=== PATIENT | male | born 1955 | race Caucasian/White ===

== ENCOUNTER 2016-11-16 14:51 | Emergency (ER) | payer OTHER ==
[~2016-11-16] VITALS: Ht 190.5 cm; Wt 102.1 kg
[2016-11-16 17:23] VITALS: BP 160/77
[2016-11-16] MEDS ORDERED: HUMALOG KW100 UNIT/1 SC (17:23)
[2016-11-16] MEDS ORDERED: LANTUS SOL100 UNIT/1 SC (17:23)
[2016-11-16] MEDS ORDERED: LABETALOL HCL200 M1 PO (17:24)
[2016-11-16] MEDS ORDERED: VALSARTAN-HCTZ1 EAC3 PO (17:24)
[2016-11-16] MEDS ORDERED: TAMSULOSIN HCL0.4 M1 (17:25)
[2016-11-16 17:26] LABS: ABSOLUTE BASOPHIL COUNT 0 /CUMM (0.0-0.2); ABSOLUTE EOSINOPHIL COUNT 0.4 /CUMM (0.0-0.7); ABSOLUTE GRANULOCYTE CT 5.9 /CUMM (1.4-6.5); ABSOLUTE LYMPH COUNT 1.4 /CUMM (1.2-3.4); ABSOLUTE MONOCYTE COUNT 0.9 /CUMM (0.10-0.60); BASOPHIL % 0.2 % (0.0-2.0); EOSINOPHIL % 4.2 % (0-5); GRANULOCYTE % 68.7 % (42.2-75.2); HEMATOCRIT 42.3 % (42-52); MEAN CORPUSCULAR HGB 30.6 PG (27.0-31.0); MEAN CORPUSCULAR HGB CONC 33.2 G/DL (33.0-37.0); MEAN CORPUSCULAR VOLUME 92.2 FL (80.0-94.0); MEAN PLATELET VOLUME 7.2 FL (7.4-10.4); PLATELET COUNT 225 /CUMM (130-400); RBC DISTRIBUTION WIDTH 12.9 % (11.5-14.5); RED BLOOD CELL CT 4.59 /CUMM (4.70-6.10); WHITE BLOOD CELL COUNT 8.6 /CUMM (4.8-10.8)
[2016-11-16 17:35] LABS: PT 12.2 SEC (9.4-12.5); PTT 31 SEC (25-37)
[2016-11-16] MEDS ORDERED: XARELTO15 M1 PO (18:00)
[2016-11-16] MEDS ORDERED: XARELTO20 M2 PO (18:00)
--- NOTE | 2016-11-16 18:01 | ED UPPER/LOWER EXTREMITY COMPL ---
History of Present Illness General Chief Complaint: Lower Extremity Problems Stated Complaint: POSITIVE DVT. Source: patient, family, old records Exam Limitations: no limitations Vital Signs & Intake/Output Vital Signs & Intake/Output Vital Signs Date Time Temp Pulse Resp B/P B/P Pulse O2 O2 Flow FiO2 Mean Ox Delivery Rate 11/16 1723 96.6 70 24 160/77 95 Room Air 11/16 1515 96.5 78 18 179/80 98 Room Air Allergies Coded Allergies: No Known Allergies (11/16/16) Reconcile Medications Insulin Glargine,Hum.rec.anlog (Lantus Solostar) 100 UNIT/ML (3 ML) INSULN.PEN 52 UNITS SC QPM DM (Reported) Insulin Lispro (Humalog Kwikpen U-100) 100 UNIT/ML INSULN.PEN DM (Reported) Labetalol HCl 200 MG TABLET 1 TAB PO BID HEART/BP (Reported) Rivaroxaban (Xarelto) 15 MG TABLET 1 TAB PO BID dvt Rivaroxaban (Xarelto) 20 MG TABLET 1 TAB PO QPM dvt with food Tamsulosin HCl (Unknown Strength) CAP.ER.24H (Unknown Dose) UNKNOWN (Reported ) Valsartan/Hydrochlorothiazide (Valsartan-Hctz 320-25 MG Tab) 320 MG-25 MG TABLET 1 TAB PO DAILY BP (Reported) Triage Note: SENT FROM [facility] + FOR BLOOD CLOT TO R LEG. C/O SWELLING WITH SLIGHT PAIN SINCE LAST PM. Triage Nurses Notes Reviewed? yes Onset: Morning (1 day) Duration: hour(s):, constant, continues in ED Timing: recent history Severity: mild Pain/Injury Location: Right: Leg, Foot. Modifying Factors: Improves With: rest. Worsens With: movement. Associated Symptoms: swelling, redness, GCS 15 since, stiffness HPI: 1 day prior to admission patient noted right leg and calf was red and swollen. He had an outpatient ultrasound that demonstrated a DVT. He denies fever chills nausea vomiting diarrhea abdominal pain chest pain shortness breath headache dysuria bleeding. Past History Travel History Traveled to [place] past 21 day No Medical History Any Pertinent Medical History? see below for history Endocrine: diabetes Surgical History Surgical History: hernia repair-ventral (March 2016) Psychosocial History What is your primary language Amharic Tobacco Use: Never used ETOH Use: denies use Family History Hx Contributory? No Review of Systems Review of Systems Constitutional: Reports: no symptoms. EENTM: Reports: no symptoms. Respiratory: Reports: no symptoms. Cardiovascular: Reports: no symptoms. Gastrointestinal/Abdominal: Reports: no symptoms. Genitourinary: Reports: no symptoms. Musculoskeletal: Reports: see HPI, joint pain, joint swelling. Skin: Reports: no symptoms. Neurological/Psychological: Reports: no symptoms. Hematologic/Endocrine: Reports: no symptoms. Immunological: Reports: no symptoms. All Other Systems: Reviewed and Negative Physical Exam Physical Exam General Appearance: well developed/nourished, alert, awake, anxious, mild distress Head: atraumatic Eyes: Bilateral: PERRL, EOMI. Ears, Nose, Throat: normal pharynx, normal ENT inspection, hearing grossly normal Neck: normal inspection, supple Cardiovascular/Respiratory: regular rate/rhythm Peripheral Pulses: 4+ carotid (R), 4+ carotid (L) Back: normal inspection Shoulder Left: normal range of motion, normal inspection Shoulder Right: normal range of motion, normal inspection Elbow Left: normal range of motion, normal inspection Elbow Right: normal range of motion, normal inspection Hand Left: normal inspection, normal range of motion Hand Right: normal inspection, normal range of motion Upper Extremity Reflexes: 2+: bicep (R), bicep (L). Leg Left: normal range of motion, normal inspection Leg Right: normal range of motion, swelling, soft tissue tenderness Hip Left: normal range of motion, normal inspection Hip Right: normal range of motion, normal inspection Knee Left: normal range of motion, normal inspection Knee Right: normal range of motion, normal inspection Foot Left: normal inspection, normal range of motion Foot Right: normal inspection, normal range of motion Lower Extremity Reflexes: 2+: knee (R), knee (L). Neurologic/Tendon: normal sensation, normal motor functions, normal tendon functions Skin: intact, normal color, warm/dry Lymphatic: no anterior cervical naty Progress Differential Diagnosis: cellulitis, DVT Plan of Care: Orders Procedure Date/time Status PARTIAL THROMBOPLASTIN TIME 11/16 165 Complete PROTHROMBIN TIME 11/16 165 Complete COMPREHENSIVE METABOLIC PANEL 11/16 1654 Complete CBC WITHOUT DIFFERENTIAL 11/16 1654 Complete Laboratory Tests 11/16/16 1710: Anion Gap 11, Estimated GFR > 60, BUN/Creatinine Ratio 29.2 H, Glucose 277 H, Calcium 9.0, Total Bilirubin 0.4, AST 18, ALT 29, Alkaline Phosphatase 70, Total Protein 5.6 L, Albumin 3.2 L, Globulin 2.4, Albumin/Globulin Ratio 1.3, PT 12.2, INR 1.16, APTT 31, CBC w Diff NO MAN DIFF REQ, RBC 4.59 L, MCV 92.2, MCH 30.6, RDW 12.9, MPV 7.2 L, Gran % 68.7, Lymphocytes % 16.3 L, Monocytes % 10.6 H, Eosinophils % 4.2, Basophils % 0.2, Absolute Granulocytes 5.9, Absolute Lymphocytes 1.4, Absolute Monocytes 0.9 H, Absolute Eosinophils 0.4, Absolute Basophils 0, PUBS MCHC 33.2 Diagnostic Imaging: Viewed by Me: Ultrasound. Discussed w/RAD: Ultrasound. Radiology Impression: 1. The study demonstrates extensive deep vein thrombus from the calf through the upper superficial femoral vein. 2. There are no focal fluid collections. Departure Departure Time of Disposition: 1758 Disposition: HOME OR SELF CARE Condition: Stable Clinical Impression Primary Impression: DVT (deep venous thrombosis) Qualifiers: DVT location: lower extremity Affected thrombotic vein of extremity : unspecified vein of extremity Chronicity: acute Laterality: right Qualified Code: I82.401 - Acute embolism and thrombosis of unspecified deep veins of right lower extremity Referrals: AUGUSTO PAYTON,ABBEY Zelaya (PCP/Family) Additional Instructions: Xarelto 15 mg 2 times a day for 3 weeks then Xarelto 20 mg daily for 3 months Departure Forms: Customer Survey General Discharge Information Prescriptions: Current Visit Scripts Rivaroxaban (Xarelto) 1 TAB PO BID #42 TAB Rivaroxaban (Xarelto) 1 TAB PO QPM #30 TAB with food
== END 2016-11-16 18:26 ==
LOC: ERH 14:51
PROVIDERS: Emergency Medicine
DX: I82.401 Acute embolism and thrombosis of unspecified deep veins of right lower extremity (principal)

== ENCOUNTER 2016-11-18 19:02 | Inpatient (IN) | payer OTHER ==
[~2016-11-18] VITALS: Ht 182.9 cm; Wt 100.7 kg
[~2016-11-18 19:02] MED LIST: HUMALOG KW100 UNIT/1 SC; LABETALOL HCL200 M1 PO; LANTUS SOL100 UNIT/1 SC; TAMSULOSIN HCL0.4 M1; VALSARTAN-HCTZ1 EAC3 PO; XARELTO15 M1 PO; XARELTO20 M2 PO
--- NOTE | 2016-11-18 19:47 | ED DYSPNEA/ASTHMA COMPLAINT ---
History of Present Illness General Chief Complaint: General Adult Stated Complaint: PT SIB DR CASAS FOR CLOG IN RT LEG AND LUNGS Source: patient, family, old records Exam Limitations: no limitations Vital Signs & Intake/Output Vital Signs & Intake/Output Vital Signs Date Time Temp Pulse Resp B/P B/P Pulse O2 O2 Flow FiO2 Mean Ox Delivery Rate 11/19 0119 97.4 77 18 157/70 95 Room Air 11/19 0022 97.6 73 18 160/75 11/19 0005 97.6 73 18 160/75 94 Room Air 11/18 2243 97.2 68 18 156/84 94 Room Air 11/18 2024 97.7 65 18 162/66 96 Room Air 11/18 2006 96.5 66 18 191/89 97 Room Air ED Intake and Output 11/19 0000 11/18 1200 Intake Total Output Total Balance Patient 222 lb Weight Weight Estimated Measurement Method Allergies Coded Allergies: No Known Allergies (11/16/16) Reconcile Medications Insulin Glargine,Hum.rec.anlog (Lantus Solostar) 100 UNIT/ML (3 ML) INSULN.PEN 52 UNITS SC QPM DM (Reported) Insulin Lispro (Humalog Kwikpen U-100) 100 UNIT/ML INSULN.PEN DM (Reported) Labetalol HCl 200 MG TABLET 1 TAB PO BID HEART/BP (Reported) Rivaroxaban (Xarelto) 15 MG TABLET 1 TAB PO BID dvt Rivaroxaban (Xarelto) 20 MG TABLET 1 TAB PO QPM dvt with food Valsartan/Hydrochlorothiazide (Valsartan-Hctz 320-25 MG Tab) 320 MG-25 MG TABLET 1 TAB PO DAILY BP (Reported) Triage Nurses Notes Reviewed? yes Onset: Abrupt Duration: week(s): (1), constant Timing: recent history Severity: mild Activities at Onset: none Prior Episodes/Possible Cause: no prior episodes Associated Symptoms: denies HPI: 61-year-old male with history of diabetes presents to ER for evaluation after he had an outpatient CAT scan performed today that showed he had left upper and left lower lobe pulmonary embolism. He was seen here 2 days ago diagnosed with a right lower extremity DVT for which she was started on xarelto. He is been compliant with taking the medicine. He states for the past several weeks to months he's had bilateral rib pain. He denies any chest pain shortness of breath pain with inspiration no cough hemoptysis. No recent immobility no recent travel. No family history of clotting disorder. Patient states that his leg is been swollen for the past few days no rashes to his skin. No dizziness lightheadedness no modifying factors or associated dose. He does not smoke (SHANEL COLMENARES) Past History Travel History Traveled to [place] past 21 day No Medical History Any Pertinent Medical History? see below for history Endocrine: diabetes Surgical History Surgical History: hernia repair-ventral (March 2016) Psychosocial History What is your primary language Maltese Family History Hx Contributory? No (SHANEL COLMENARES) Review of Systems Review of Systems Constitutional: Reports: see HPI. All Other Systems: Reviewed and Negative Comments Review of systems: See HPI, All other systems negative. Constitutional, no chills no fever, no malaise HEENT: No visual changes no sore throat no congestion, Cardiovascular: No chest pain , no palpitation , no orthopnea Skin: no rashes, no change in skin Respiratory: No dyspnea no cough no sputum GI: No nausea no vomiting, no diarrhea, no bloating/constipation : No dysuria Muscle skeletal: No joint pain, no joint swelling, no back pain, no neck pain, Neurologic: No numbnessno headache Psych: No stress Heme/endocrine: No bruising Immunology: No lymphadenopathy (SHANEL COLMENARES) Physical Exam Physical Exam General Appearance: well developed/nourished, alert, awake Respiratory: normal breath sounds, chest non-tender Comments: Well-developed well-nourished person in no acute distress HEENT: Normal EENT exam; PERRL, EOMI, no nystagmus. HEAD is atraumatic. moist mucous membranes. Neck: Supple, normal range of motion Back: Nontender. Full range of motion Cardiovascular: Regular rate and rhythms no murmurs rubs or gallops, normal JVP Respiratory: Chest nontender.There were no bony deformities, no asymmetry. No respiratory distress. Patient speaking in full complete sentences. Breath sounds clear to auscultation bilaterally: NO W/R/R Abdomen: Soft, nontender nondistended, no appreciable organomegaly. Normal bowel sounds. No rebound/guarding,No ascites. Extremity: Right leg 3+ edema, left leg is nonedematous, full range of motion of extremities, normal and equal pulses bilaterally, 5 out of 5 strength noted to bilateral upper and lower extremities Neuro: Alert oriented x3, motor sensory normal, There were no obvious focal neurologic abnormalities. Skin: No appreciable rash on exposed skin, skin is warm and dry. Psych: Mood and affect is normal, memory and judgment is normal. Core Measures ACS in differential dx? Yes Severe Sepsis Present: No Septic Shock Present: No (RUBINA ALVARADO,SHANEL) Progress Differential Diagnosis: asthma, AMI, bronchitis, CHF, COPD, musculoskeletal pain , pericarditis, pulmonary embolism, pneumonia, pneumothorax, unstable angina Plan of Care: Orders Procedure Date/time Status Consistent Carbohydrate 3 11/19 B Active TROPONIN LEVEL 11/20 799 Active EKG 11/20 799 Active CBC WITHOUT DIFFERENTIAL 11/19 599 Active BASIC ELECTROLYTES PLUS BUN&CR 11/19 599 Active TROPONIN LEVEL 11/19 0200 Active EKG 11/19 0200 Active Vital Signs 11/20 147 Active Teach/Educate 11/20 147 Active Pain Treatment and Response 11/20 147 Active Nutritional Intake, Monitor 11/20 147 Active Isolation 11/20 147 Active Intake & Output 11/20 147 Active Patient Care Conference 11/20 147 Active Pathway - chart 11/18 2314 Active Pathway - chart 11/18 2253 Active OXYGEN SETUP (GEN) 11/19 2235 Active Saline Lock 11/19 2235 Active Admit to inpatient 11/19 2235 Active Vital Signs 11/19 2235 Active Activity/Ambulation 11/19 2235 Active Code Status 11/19 2235 Active Patient Data 11/18 2159 Active Intake & Output 11/18 2017 Active Telemetry/Radiation Protection Specialist 11/18 2004 Active TROPONIN LEVEL 11/18 194 Complete PARTIAL THROMBOPLASTIN TIME 11/18 1941 Complete PROTHROMBIN TIME 11/18 194 Complete COMPREHENSIVE METABOLIC PANEL 11/18 1941 Complete CBC WITHOUT DIFFERENTIAL 11/18 1941 Complete EKG 11/18 1906 Active House Staff 11/18 UNK Active Hemoccult 11/18 UNK Active FingerStick- Glucose 11/18 UNK Active Elevate 11/18 UNK Active PHYSICIAN CONSULT 11/18 UNK Active ECHOCARDIOGRAM 11/18 UNK Active Current Medications Sig/Jose A Start time Last Medication Dose Stop Time Status Admin Hydrochlorothiazide 25 MG DAILY 11/19 1000 AC (Hydrodiuril) Losartan Potassium 100 MG DAILY 11/19 1000 AC (Cozaar) Insulin Aspart 0 TIDAC/HS 11/19 0800 AC (NovoLOG) Acetaminophen 650 MG Q6P PRN 11/18 2315 AC (Tylenol) Acetaminophen 1,000 MG Q6P PRN 11/18 2315 AC (Ofirmev) Morphine Sulfate 2 MG Q6-PRN PRN 11/18 2315 AC (Morphine) Insulin Detemir 26 UNITS QPM 11/18 2300 AC 11/19 (Levemir) 0046 Labetalol HCl 200 MG BID 11/18 2257 AC 11/19 (Trandate-Normodyne 0022 200MG Tab) Laboratory Tests 11/18/16 2015: Anion Gap 7, Estimated GFR > 60, BUN/Creatinine Ratio 26.7 H, Glucose 259 H, Calcium 9.0, Total Bilirubin 0.5, AST 23, ALT 22, Alkaline Phosphatase 68, Troponin I 0.13 *H, Total Protein 5.8 L, Albumin 3.1 L, Globulin 2.7, Albumin/ Globulin Ratio 1.1, PT 14.3 H, INR 1.37 H, APTT 35, CBC w Diff NO MAN DIFF REQ , RBC 4.33 L, MCV 92.4, MCH 31.2 H, RDW 13.0, MPV 7.4, Gran % 65.3, Lymphocytes % 21.0, Monocytes % 9.0, Eosinophils % 4.2, Basophils % 0.5, Absolute Granulocytes 5.7, Absolute Lymphocytes 1.8, Absolute Monocytes 0.8 H, Absolute Eosinophils 0.4, Absolute Basophils 0, PUBS MCHC 33.8 Patient has no complaints. Discussed with the patient plan of care and results of CAT scan heparin ordered case discussed with Dr. miranda and dr abraham will admit to tele. pt denies any cp Discussed with the patient all his lab results including his elevated troponin heparin is running again denying any chest pain (SHANEL COLMENARES) Diagnostic Imaging: Viewed by Me: CT Scan. Discussed w/RAD: CT Scan. Radiology Impression: PATIENT: ELE LEIGH PRESENT AGE: 61 PATIENT ACCOUNT NO: [id number] : 53 LOCATION: [facility] ORDERING PHYSICIAN: ABBEY CASAS MD SERVICE DATE: 11/18/16 EXAM TYPE: CAT - CTA CHEST-PULMONARY EMBOLISM EXAMINATION: CT ANGIOGRAM OF THE CHEST WITH AND WITHOUT CONTRAST (CT PULMONARY ANGIOGRAM FOR PE) CLINICAL INFORMATION: Chest pain. Recent deep venous thrombosis of the right lower extremity. COMPARISON: None. TECHNIQUE: Prior to contrast administration, noncontrast localization images were obtained. Subsequently, multidetector volumetric imaging was performed from the thoracic inlet to below the diaphragms following the administration of 100 mL Optiray 350 intravenous contrast. No contrast reaction reported. Sagittal, coronal, and MIP oblique sagittal reformatted images were obtained on the CT workstation, uploaded to PACS, and reviewed. Total exam dose- length product 839 mGy-cm. FINDINGS: QUALITY OF STUDY/CONTRAST BOLUS: Adequate contrast opacification of the pulmonary arterial vasculature. PULMONARY ARTERIES : Intraluminal filling defects within segmental and subsegmental branches of the left upper and left lower lobes. No large central pulmonary emboli. THORACIC AORTA: Normal caliber of the thoracic aorta. No centrally displaced intraluminal flaps to suggest aortic dissection. Minimal atherosclerosis of the thoracic aorta. Normal three-vessel branching of the aortic arch. LUNG: Evaluation of the lung parenchyma demonstrates minimal dependent bibasilar atelectasis. No focal airspace consolidation is identified to suggest infection. Incidental note is made of a 4 mm nodule along the right minor fissure. This finding is entirely nonspecific but may represent a small intrafissural lymph node. A 3 mm subpleural nodule is identified along the periphery of the right middle lobe ( series 5, image 43). No pulmonary masses are identified. The central airways are patent, without endobronchial obstructing lesions. PLEURA: No pleural effusions or pneumothoraces. MEDIASTINUM: Normal heart size. No pericardial effusion. No hilar or mediastinal lymphadenopathy. No evidence of septal bowing or right heart strain. CHEST WALL/AXILLA: No axillary or internal mammary lymphadenopathy. OSSEOUS STRUCTURES: No acute or suspicious osseous abnormality. UPPER ABDOMEN: No acute findings within the upper abdomen. No reflux of contrast into the hepatic veins to suggest elevated right heart pressures. IMPRESSION: 1. Adequate contrast opacification of the pulmonary arterial vasculature. Pulmonary emboli are identified within segmental and subsegmental branches of the left upper and left lower lobes. No large central emboli are identified. There are no findings indicative of right heart strain. 2. Incidental note is made of subcentimeter nodules along the right minor fissure as well as along the periphery of the right middle lobe. These nodules are entirely nonspecific. Various management parameters for solitary pulmonary nodules are in the literature. According to the Fleischner Society, recommendations for pulmonary nodules are as follows: Nodule size < 6 mm in LOW RISK PATIENTS: No follow up needed. Nodule size < 6 mm in HIGH RISK PATIENTS: Optional follow-up up CT in 12 months. This critical result was discussed with Dr. Abbey Casas at 2:57 PM on and it was ascertained that the content and urgency of the report was understood at the time of direct communication. DICTATED BY: KISHOR KNAPP MD DATE/TIME DICTATED:11/18/161440 [employer] AND FORMER:DIVYA DATE/TIME TRANSCRIBED:11/18/161440 CONFIDENTIAL, DO NOT COPY WITHOUT APPROPRIATE AUTHORIZATION. <Electronically signed in Other Vendor System> SIGNED BY: KISHOR KNAPP MD 11/18/16 1500 Initial ED EKG: NSR AT 70, NO ACUTE ST SEG CHANGES, NROMAL AXIS Rhythm Strip: normal sinus rhythm (SHANEL COLMENARES) Departure Departure Time of Disposition: 2140 Disposition: STILL A PATIENT Condition: Stable Clinical Impression Primary Impression: Pulmonary embolism Secondary Impressions: Elevated troponin Referrals: ABBEY CASAS MD (PCP/Family) Departure Forms: Customer Survey General Discharge Information Admission Note Spoke With: SHANIKA ABRAHAM MD Documentation of Exam: Documentation of any treatments & extenuating circumstances including Concerns Regarding Discharge (functional status, medication knowledge or non-compliance, living conditions, etc.) that warrant an admission rather than observation: [iv heparin, vascular, cardiology consult, premature discharge would be medically harmful (SHANEL COLMENARES) PA/MRI ASSISTANT Co-Sign Statement Statement: ED Attending supervision documentation- x I saw and evaluated the patient. I have also reviewed all the pertinent lab results and diagnostic results. I agree with the findings and the plan of care as documented in the PA's/MRI ASSISTANT's documentation. [] I have reviewed the ED Record and agree with the PA's/MRI ASSISTANT's documentation. [] Additions or exceptions (if any) to the PAs/MRI ASSISTANT's note and plan are summarized below: [] (GREGORIO PAYTON,SOURAV) Critical Care Note Critical Care Note Critical Care Time: 30-74 min (SHANEL COLMENARES)
--- NOTE | 2016-11-18 20:07 | NUR ---
RECEIVED 61 YO MALE SENT IN BY DR CASAS FOR PE AND DVT IN RIGHT LOWER EXTREMITY. PT BOUGHT DIRECTLY TO ROOM # 6 FOR TRIAGE, EVALUATION AND TREATMENT. OUTPATIENT LUNG SCAN DONE TODAY SECONDARY TO PT FEELING WORSE TOPDAY. PT WAS HERE TUESDAY AND DX WITH DVT IN RIGHT LOWER EXTREMITY. O2 SATS 97%NO C/O SOB/CP
--- NOTE | 2016-11-18 20:09 | NUR ---
RECEIVED 61 YO MALE SENT IN BY DR CASAS FOR PE AND DVT IN RIGHT LOWER EXTREMITY. PT BOUGHT DIRECTLY TO ROOM # 6 FOR TRIAGE, EVALUATION AND TREATMENT. OUTPATIENT LUNG SCAN DONE TODAY SECONDARY TO PT FEELING WORSE TODAY. PT WAS HERE TUESDAY AND DX WITH DVT IN RIGHT LOWER EXTREMITY. O2 SATS 97%NO C/O SOB/CP
[2016-11-18 20:29] LABS: ABSOLUTE BASOPHIL COUNT 0 /CUMM (0.0-0.2); ABSOLUTE EOSINOPHIL COUNT 0.4 /CUMM (0.0-0.7); ABSOLUTE GRANULOCYTE CT 5.7 /CUMM (1.4-6.5); ABSOLUTE LYMPH COUNT 1.8 /CUMM (1.2-3.4); ABSOLUTE MONOCYTE COUNT 0.8 /CUMM (0.10-0.60); BASOPHIL % 0.5 % (0.0-2.0); EOSINOPHIL % 4.2 % (0-5); GRANULOCYTE % 65.3 % (42.2-75.2); MEAN CORPUSCULAR HGB 31.2 PG (27.0-31.0); MEAN CORPUSCULAR HGB CONC 33.8 G/DL (33.0-37.0); MEAN CORPUSCULAR VOLUME 92.4 FL (80.0-94.0); MEAN PLATELET VOLUME 7.4 FL (7.4-10.4); PLATELET COUNT 237 /CUMM (130-400); RED BLOOD CELL CT 4.33 /CUMM (4.70-6.10); WHITE BLOOD CELL COUNT 8.7 /CUMM (4.8-10.8)
--- NOTE | 2016-11-18 20:30 | NUR ---
PT REPORTS HAVING ABDOMINAL PAIN SINCE APRIL. STATES THAT HE WAS TAKEN OFF "ALOT OF MY MEDS" TO RULE THE CAUSE OF PAIN. PT HERE TODAY FOR DVT TO RIGHT LOWER LEG.
[2016-11-18 20:37] LABS: PT 14.3 SEC (9.4-12.5); PTT 35 SEC (25-37)
--- NOTE | 2016-11-18 21:26 | NUR ---
CRITICAL TEST RESULTS [id number] ELE LEIGH 61 M TESTS AND RESULTS: 0.13 REPORTED TO SHANEL ALVARADO Results received and read back by: DEBBIE ESPINOZA Results received date and time: 11/18/16 [id number]
--- NOTE | 2016-11-18 21:55 | History & Physical ---
TALA PAYTON,[facility] [place] 11/18/16 2154: General Information and HPI MD Statement: I have seen and personally examined ELE CAVANAUGH and documented this H&P. The patient is a 61 year old M who presented with a patient stated chief complaint of DVT and PE. Source of Information: patient, old records Exam Limitations: no limitations History of Present Illness: Mr. Cavanaugh is a 61 y/o M with PMHx of insulin-dependent T2DM, HTN and remote history of bone cancer s/p resection and bone graft placement (1961) who is sent in from PCP Dr. Kory Owens's office for further evaluation and management of RLE DVT and PE. Four days prior to current presentation, patient noted painless swelling of his right leg and foot. The following day he presented to his Dr. Owens's office who recommended an US which revealed an extensive DVT extending from his calf through the upper superficial femoral vein. He was subsequently sent to [place] ED for further management where he was discharged with instructions to take Xarelto 15 mg PO BID for 3 weeks, followed by Xarelto 20 mg PO daily for 3 months. Over the next two days patient developed increasing swelling and tightness of his right leg despite taking Xarelto as instructed. He also noted diarrhea which has since resolved as well as paresthesias involving his bilateral flanks and left lateral thigh, which he describes as "pins and pricks" sensation, feeling like he is being "stung by bees". He presented to his Dr. Owens's office again on the day of current presentation. CTA Chest was performed which revealed pulmonary emboli within the segmental and subsegmental branches of the left upper and lower lobes of the lung. Patient was subsequently sent to [place] ED for further evaluation and management. Currently patient denies chest pain, shortness of breath, melena or bloody stool. He denies personal or family history of blood clots. He denies recent long-distance travel or surgery. He reports that he is pretty active and runs or walks daily for exercise. 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 In July 2015, patient had a seizure at work and was subsequently admitted to [facility] for further workup which was unrevealing. In March 2016, he underwent hernia repair surgery for the second time and since then he has significant had abdominal pain. He reports that his stomach feels like he has done "100 sit-ups ". Extensive testing was performed by Dr. Wright including CT, MRI and barium swallow which were unrevealing except for a fluid collection in the right paracolic gutter, with repeat CT scans showing mild improvement, with no intervention pursued. Patient had a colonoscopy 2 years ago which was negative. Allergies/Medications Allergies: Coded Allergies: No Known Allergies (11/16/16) Past History Travel History Traveled to [place] past 21 day No Medical History Neurological: seizure EENT: NONE Cardiovascular: hypertension, hyperlipidemia Respiratory: NONE Gastrointestinal: abdominal pain with fluid collection in the paracolic gutter Hepatic: NONE Renal: NONE Musculoskeletal: NONE Psychiatric: NONE Endocrine: insulin-dependent T2DM Blood Disorders: DVT, PE Cancer(s): bone cancer of right lower leg (1961) Surgical History Surgical History: excision of left neck soft tissue mass, hernia repair x2 (most recent one in March 2016), resection of right lower leg bone cancer (1961) and bone graft placement, TURP Past Family/Social History Family History Relations & Conditions if any PATERNAL GRANDMOTHER FH: diabetes mellitus No family history of: Blood clots Psychosocial History Where do you live? Home Services at Home: None Primary Language: Chilean Smoking Status: Never Smoked ETOH Use: denies use Functional Ability ADLs Independent: dressing, eating, toileting, bathing. Ambulation: independent IADLs Independent: shopping, housework, finances, food prep, telephone, transportation , medication admin. Employment History Employment Retired Profession/Employer Industrial Designer Review of Systems Review of Systems Constitutional: Reports: no symptoms. Denies: unexplained weight loss. EENTM: Reports: no symptoms. Cardiovascular: Reports: peripheral edema. Denies: chest pain. Respiratory: Denies: short of breath. GI: Reports: abdominal pain. Denies: diarrhea, melena, bloody stool. Genitourinary: Reports: no symptoms. Musculoskeletal: Reports: no symptoms. Denies: joint pain, joint swelling. Skin: Reports: no symptoms. Neurological/Psychological: Reports: no symptoms. Hematologic/Endocrine: Reports: see HPI (RLE DVT and PE). Immunologic/Allergic: Reports: no symptoms. All Other Systems: Reviewed and Negative Exam & Diagnostic Data Last 24 Hrs of Vital Signs/I&O Vital Signs Date Time Temp Pulse Resp B/P B/P Pulse O2 O2 Flow FiO2 Mean Ox Delivery Rate 11/18 2243 97.2 68 18 156/84 94 Room Air 11/19 2023 97.7 65 18 162/66 96 Room Air 11/18 2005 96.5 66 18 191/89 97 Room Air Physical Exam General Appearance Alert, Oriented X3, No Acute Distress HEENT Atraumatic, Mucous Membr. moist/pink Neck Supple Cardiovascular Regular Rate, Normal S1, Normal S2, No Murmurs, Gallops, Rubs Lungs Clear to Auscultation Abdomen Soft, No Tenderness, Positive Bowel Sounds Extremities RLE with 2+ Pitting Edema, No Erythema Present Vascular Normal Pulses Last 24 Hrs of Labs/Darinel: Laboratory Tests 11/18/162014: Anion Gap 7, Estimated GFR > 60, BUN/Creatinine Ratio 26.7 H, Glucose 259 H, Calcium 9.0, Total Bilirubin 0.5, AST 23, ALT 22, Alkaline Phosphatase 68, Troponin I 0.13 *H, Total Protein 5.8 L, Albumin 3.1 L, Globulin 2.7, Albumin/ Globulin Ratio 1.1, PT 14.3 H, INR 1.37 H, APTT 35, CBC w Diff NO MAN DIFF REQ , RBC 4.33 L, MCV 92.4, MCH 31.2 H, RDW 13.0, MPV 7.4, Gran % 65.3, Lymphocytes % 21.0, Monocytes % 9.0, Eosinophils % 4.2, Basophils % 0.5, Absolute Granulocytes 5.7, Absolute Lymphocytes 1.8, Absolute Monocytes 0.8 H, Absolute Eosinophils 0.4, Absolute Basophils 0, PUBS MCHC 33.8 Diagnostic Data EKG Results Normal sinus rhythm HR [address]-T wave changes QTc 451 Other Results CTA CHEST (11/18/16): : 1. Adequate contrast opacification of the pulmonary arterial vasculature. Pulmonary emboli are identified within segmental and subsegmental branches of the left upper and left lower lobes. No large central emboli are identified. There are no findings indicative of right heart strain. 2. Incidental note is made of subcentimeter nodules along the right minor fissure as well as along the periphery of the right middle lobe. These nodules are entirely nonspecific. Various management parameters for solitary pulmonary nodules are in the literature. According to the Fleischner Society, recommendations for pulmonary nodules are as follows: Nodule size < 6 mm in LOW RISK PATIENTS: No follow up needed. Nodule size < 6 mm in HIGH RISK PATIENTS: Optional follow-up up CT in 12 months. RLE DOPPLER US (11/16/16): 1. The study demonstrates extensive deep vein thrombus from the calf through the upper superficial femoral vein. 2. There are no focal fluid collections. 3. This critical result was discussed with Ashley Parry WARDSPERSON by telephone on 11/16/2016 at 2:36 PM and it was ascertained that the content and urgency of the report was understood at the time of direct communication. The patient was directed to the ER at [facility] for further management. Assessment/Plan Assessment: Mr. Cavanaugh is a 61 y/o M with PMHx of insulin-dependent T2DM, HTN and remote history of bone cancer s/p resection (1961) who is admitted for RLE DVT and PE. #Acute RLE DVT/PE: Extensive DVT extending from calf to the upper superficial femoral vein on RLE as revealed by doppler US (11/16). Leg swelling has worsened despite being on Xarelto, now with CTA Chest revealing pulmonary emboli within segmental and subsegmental branches of left upper and lower lobes (11/18). This would likely not qualify as Xarelto failure as patient has only been on the medication for two days. 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 No personal or family history of clots, recent long-distance travel or surgery. Patient is hemodynamically stable and satting well on room air. * Hematology consulted. Appreciate their recs. * Vascular surgery consulted for evaluation for possible surgical invervention such as embolectomy given the extent of the clot. Appreciate their recs. * Continue IV heparin overnight. Plan to switch to oral agent, either Eliquis or Xarelto, pending hematology input. * Guaiac all stools while on heparin drip. * Patient will need hypercoagulability workup which can be pursued as outpatient. * Encourage RLE elevation. #Elevated troponin: Troponin elevated to 0.13 on admission. EKG with no ST-T wave changes. Most likely represents demand ischemia in the absence of EKG changes and chest pain. * Admit to telemetry for continuous cardiac monitoring. * Cardiology consult to be placed in the AM. Appreciate their recs. * Trend troponins and EKG. * ECHO ordered to evaluate for right heart strain. #Insulin-dependent T2DM: Takes Lantus 52 units SQ QPM and sliding scale lispro TIDAC/QHS. * Start levemir 26 units SQ QPM, which is half of patient's home dose, with plans to adjust as needed. * Accu-checks and sliding scale medium-dose Novolog TIDAC/QHS. #HTN: Takes labetalol 200 mg PO BID and valsartan-HCTZ 320-25 mg PO daily. * Continue lptge-dy-saaikqdni labetalol 200 mg PO BID and HCTZ 25 mg PO daily. * Losartan 100 mg PO daily in place of turmd-ho-crskjcqtk valsartan 25 mg PO daily. Diet: Consistent Carbohydrate 3 DVT PPx: IV heparin Pain: Morphine 2 mg IV Q6H PRN for severe pain (scale 7-10) Tylenol 1 g IV Q6H PRN for moderate pain (scale 4-6) Tylenol 650 mg PO Q6H PRN for mild pain (scale 1-3) CODE: FULL As Ranked By This Provider Problem List: 1. Pulmonary embolism 2. Deep vein thrombosis (DVT) of right lower extremity 3. Elevated troponin 4. HTN (hypertension) 5. Insulin dependent type 2 diabetes mellitus Core Measures/Miscellaneous Acute Coronary Syndrome ACS Diagnosis: No Cerebrovascular Accident CVA/TIA Diagnosis: No Congestive Heart Failure CHF Diagnosis: No VTE (View Protocol) VTE Risk Factors: Acute medical illness, Age > 40, Previous VTE No [facility] VTE prophylaxis d/t: DVT of LE No VTE Pharm Prophylaxis d/t: No contraindications VTE Diagnosis: Yes VTE Type: Pulmonary Embolism (and DVT) VTE Confirmed by (Test): CT CHEST ANGIOGRAM (and unilateral venous doppler) Sepsis (View Protocol) Severe Sepsis Present: No Septic Shock Septic Shock Present: No Miscellaneous Documentation Attending Case Discussed With: Jarad Woo MD Primary Care Physician: AUGUSTO PAYTON,KORY A Patient sees these Specialists General surgeon Gaurang Wright MD Level of Patient Care: Telemetry SHANEL MYLES 11/18/16 3162: General Information and HPI Allergies/Medications Home Med list Apixaban (Eliquis) 5 MG TABLET 1 TAB PO SEE ADMIN CRITERIA PE SEE DISCHARGE INSTRUCTIONS Insulin Glargine,Hum.rec.anlog (Lantus Solostar) 100 UNIT/ML (3 ML) INSULN.PEN 52 UNITS SC QPM DM (Reported) Insulin Lispro (Humalog Kwikpen U-100) 100 UNIT/ML INSULN.PEN DM (Reported) Labetalol HCl 200 MG TABLET 1 TAB PO BID HEART/BP (Reported) Rivaroxaban (Xarelto) 15 MG TABLET 1 TAB PO BID dvt Rivaroxaban (Xarelto) 20 MG TABLET 1 TAB PO QPM dvt with food Valsartan/Hydrochlorothiazide (Valsartan-Hctz 320-25 MG Tab) 320 MG-25 MG TABLET 1 TAB PO DAILY BP (Reported) Resident Review Statement Resident Statement: examined this patient, discussed with internal communications specialist, agreed with internal communications specialist, discussed with family, reviewed images, amended to note Other Findings: This is a 61 years old gentleman with past medical history significant for hypertension, insulin-dependent diabetes mellitus, bone cancer at the age of 8 years in 1964 status post resection, history of one episode of seizure in July 2015 not on antiseizure medications presenting with 4 days history of right lower limb swelling. The patient reports that his noted his right lower limb was swollen on Tuesday and on Tuesday went to see his PCP Dr. Owens, he had an ultrasound of the lower limb which showed DVT and patient was started on Xarelto, the patient reports that he continued to note that his lower limb was getting more swollen though he denies any pain and because of that went back to his PCP who decided to do a CTA and showed evidence of pulmonary embolism. The patient denies any chest pain palpitation or shortness of breath. Prior to the development of the clot the patient denies any prolonged immobility , long flight, history of clots in the past. He denies any clots among close family members. The patient denies any weight loss, blood in stool or change in stool color, he had colonoscopy 2 years ago which was negative. Patient volunteers that after he had hernia repair in March 2016 he continued to have pain around the epigastric area and the bilateral flank he has extensive workout which was negative, this pain has not changed from baseline. Vital signs on arrival afebrile 96.5, heart rate of 66, blood pressure 191/89 and saturating 97% on room air Physical examination: Seated comfortably on the bed not in acute distress cooperative oriented to time place and person HEENT: No distended neck vessels Chest: Clear lungs bilaterally Heart: Normal S1 and S2 regular no murmurs Abdomen: Obese nontender moving with respiration no palpable mass Extremities: Right lower limb is swollen than the left hip, has pitting edema +2 , strong pulses posterior tibial and dorsalis pedis, no skin changes Labs: Troponin 0.13, INR 1.37, creatinine of 1.2 Imaging studies: Doppler ultrasound extensive DVT from the cuff to the upper superficial femoral vein CTA: PE advised identified within segmental and subsegmental branches of left upper and lower lobes no large central emboli, there is incidental nodule subcentimeter EKG: NSR 72 bpm normal axis, regular QTC [address]-T wave changes Assessment and plan 61 years old with remote past history of bone cancer, hypertension, diabetes mellitus insulin-dependent who is presenting with forward days history of right lower extremity DVT which is extensive and current evidence of pulmonary embolism that is non-massive. Patient does not appear to have any provoking factors and this is the first episode of thromboembolism. Patient is stable hemodynamically and saturating well on room air with mildly elevated troponin without concurrent EKG changes. Problem list Deep vein thrombosis Pulmonary embolism Hypertension Diabetes mellitus Admit the patient to telemetry flow, continuous carbide grinder Heparin drip per PE protocol, hold Xarelto while on heparin drip Serial troponin and EKG every 6 hours till when troponin plateu or start decreasing Echocardiogram to rule out cardiac emboli/right heart strain Restart home blood pressure medication labetalol 200 mg twice a day and valsartan HCTZ 325/25 Consistent carbohydrate 3 diet Accu-Cheks 3 times a day before meals at bedtime Patient takes Lantus 52 units at home at bedtime we will decrease that to 26 and consider adjustment to normal doses if sugar is not well controlled Medium sliding scale insulin before meals with bedtime coverage Check HbA1c Elevate the right lower leg whenever in bed Cardiology consult Hematology consult this patient might require workup for hypercoagulable state Patient has subcentimeter incidental pulmonary nodules that will require follow- up post discharge Pain pathway Patient is full code JARAD PAYTON, [facility] 11/19/16 0525: Attending Review Statement Attending Statement Attending MD Statement: examined this patient, discuss w/resident/PA/WARDSPERSON, agreed w/resident/PA/WARDSPERSON Attending Assessment/Plan: 61 yo M with h/o DM, HTN, bone cancer RLE s/p resection and iliac bone graft ( 1961), recently diagnosed RLE DVT is sent in for evaluation as his outpatient CTA showed PE. Patient reports noticing RLE swelling early this week, underwent LE doppler which showed extensive DVT, was seen in the ER on November 16 and initiated on Xarelto. Patient reports diarrhea, paresthesias and bilateral flank pain since he started the xarelto, but reports compliance with it. He saw his PCP yesterday who advised CTA chest as patient had c/o discomfort in his lower ribs/upper abdomen. He denies chest pain, dyspnea, palpitations or lightheadedness. 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 He denies being on hormonal pills, nonsmoker, no family or personal h/o VTA. No recent surgery or long flights. No cancer history. Last colonoscopy (2 yrs ago) normal. Of note, patient has a h/o seizure Jul 2015 with negative work up at [facility]. No further seizure episodes and not on meds. He then had umbilical hernia repair Mar 2016 that was complicated by persistent upper abdominal discomfort requiring CT scan which showed a fluid pocket in the right paracolic gutter ?related to appendix, with repeat scans that showed mild resolution. However, his discomfort persists. VSS. Labs: BUN 32, trop 013, EKG: SR, T wave flattening/ inversion I, aVL. LE doppler (11/16): extensive DVT from calf though upper superficial femoral vein. CTA: segmental and subsegmental PE in left upper and left lower lobes, no right heart strain. 1. Acute RLE DVT and PE, possibly provoked, with elevated troponin likely demand ischemia. Tele admit, serial EKG and troponin, obtain echo, Cardio consult. IV heparin per PTT protocol, guaiac all stools, monitor H/H and Plt while on heparin. Plan to switch to eliquis or xarelto in AM. Cannot term this as xarelto failure as patient was on it for about 2 days only. Obtain Heme-Onc and Vascular consult. 2. HTN. Ct. Valsartan and labetalol. DVT ppx IV heparin. Full code.
--- NOTE | 2016-11-18 23:43 | NUR ---
Emergency Dept [facility] Admit Note: To be admitted to [facility] by DR. ABRAHAM with PULMONARY EMBOLISM as the diagnosis, to TELE 1NO #[id number] location. Nursing Custom Bookbinder and admitting notified 11/18/16 at 0068
--- NOTE | 2016-11-19 00:30 | NUR ---
PT MEDICATED WITH 200 MG LABETALOL PO ORDERED. PHARMACY CALLED FOR LEVEMIR
--- NOTE | 2016-11-19 00:45 | NUR ---
26 UNITS LEVEMIR SC RT ARM
--- NOTE | 2016-11-19 01:04 | NUR ---
ATTEMPTED TO CALL REPORT, RN WILL CALL BACK
--- NOTE | 2016-11-19 01:21 | NUR ---
REPORT GIVEN TO GIANCARLO EDMONDSON
[2016-11-19 02:17] VITALS: BP 168/84
[2016-11-19 03:29] LABS: PTT 44 SEC (25-37)
--- NOTE | 2016-11-19 05:25 | Admission Certification ---
Admission Certification Certification Statement - As attending physician, I certify that at the time of - admission, based on clinical presentation, severity of - symptoms, need for further diagnostic testing and - therapeutic interventions, and risk of adverse outcomes - without in-hospital treatment, in my clinical assessment, - this patient requires an acute hospital stay for a minimum - of two nights or longer. I have also considered psychsocial - factors such as support system, advanced age, financial - issues, cognitive issues, and failed out-patient treatments, - past re-admission history, safety of patient, and lack of - compliance as applicable. Specific rationale supporting this admission is: Pulmonary embolism and RLE DVT.
--- NOTE | 2016-11-19 07:32 | PN- Housestaff ---
Subjective Follow-up For: Acute RLE DVT/PE Elevated troponin Insulin-dependent T2DM Hypertension Tele-Events Since Last Visit: Normal sinus rhythm, heart rate between 60 to 70s Subjective: Patient seen and examined this morning. He was lying in bed in no acute distress. Vitals within normal limits. Hemodynamically stable, remains on IV heparin for DVT/PE. Offered no complaints. Review of Systems Constitutional: Reports: see HPI. Objective Last 24 Hrs of Vital Signs/I&O Vital Signs Date Time Temp Pulse Resp B/P B/P Pulse O2 O2 Flow FiO2 Mean Ox Delivery Rate 11/19 1304 97.8 93 20 160/78 94 Room Air 11/19 0914 68 148/70 11/19 0914 68 148/70 11/19 0800 95 Room Air 11/19 0308 94 Room Air 11/19 0217 98.2 73 18 168/84 94 Room Air 11/19 0119 97.4 77 18 157/70 95 Room Air 11/19 0022 97.6 73 18 160/75 11/19 0005 97.6 73 18 160/75 94 Room Air 11/18 2243 97.2 68 18 156/84 94 Room Air 11/18 2024 97.7 65 18 162/66 96 Room Air 11/18 2006 96.5 66 18 191/89 97 Room Air Intake & Output 11/19 1600 11/19 0800 11/19 0000 Intake Total 448 Output Total Balance 448 Intake, IV 208 Intake, Oral 240 Patient 100.698 kg 100.698 kg Weight Weight Estimated Measurement Method Physical Exam General Appearance: Alert, Oriented X3, Cooperative, No Acute Distress Cardiovascular: Regular Rate, Normal S1, Normal S2, No Murmurs Lungs: Clear to Auscultation, Normal Air Movement Abdomen: Normal Bowel Sounds, Soft, No Tenderness Extremities: right lower extremity swelling and tenderness Assessment/Plan Assessment: Mr. Cavanaugh is a 61 y/o M with PMHx of insulin-dependent T2DM, HTN and remote history of bone cancer s/p resection (1961) who is admitted for RLE DVT and PE. #Acute RLE DVT/PE: Extensive DVT extending from calf to the upper superficial femoral vein on RLE as revealed by doppler US (/). CTA Chest revealing pulmonary emboli within segmental and subsegmental branches of left upper and lower lobes (8). 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 No personal or family history of clots, recent long- distance travel or surgery. Patient took Xeralto for 2 days, reported adverse effects with it. * Patient is hemodynamically stable and satting well on room air. * We'll continue IV heparin for now, plans are to start him on Eliquis. * Vascular surgery to see the patient for further management of DVT, medical versus surgical intervention * Hematology has seen the patient, follow-up with medications. * Hypercoagulability workup has been ordered by primary care physician, will advise the patient to follow-up with primary care physician upon discharge. #Elevated troponin: Troponin elevated to 0.13 on admission, trended down to 0.11. EKG with no ST-T wave changes. Most likely represents demand ischemia in the absence of EKG changes and chest pain. * Cardiology consult placed, Appreciate their recs. * Trend troponins and EKG. * ECHO ordered to evaluate for right heart strain. #Insulin-dependent T2DM: Takes Lantus 52 units SQ QPM and sliding scale lispro TIDAC/QHS. * Start levemir 26 units SQ QPM, which is half of patient's home dose, with plans to adjust as needed. * Accu-checks and sliding scale medium-dose Novolog TIDAC/QHS. #HTN: Takes labetalol 200 mg PO BID and valsartan-HCTZ 320-25 mg PO daily. * Continue dbnxr-lf-rbhdogicn labetalol 200 mg PO BID and HCTZ 25 mg PO daily. * Losartan [address] daily in [address] of vladx-hb-noqnzpwtg valsartan 25 mg PO daily. Diet: Consistent Carbohydrate 3 DVT PPx: IV heparin Problem List: 1. Deep vein thrombosis (DVT) of right lower extremity 2. HTN (hypertension) 3. Insulin dependent type 2 diabetes mellitus 4. Pulmonary embolism 5. DVT (deep venous thrombosis) 6. Elevated troponin Pain Ratin Pain Location: None Pain Goal: Remain pain free Pain Plan: Morphine 2 mg IV Q6H PRN for severe pain (scale 7-10) Tylenol 1 g IV Q6H PRN for moderate pain (scale 4-6) Tylenol 650 mg PO Q6H PRN for mild pain (scale 1-3) Tomorrow's Labs & Rationales: CBC for H&H monitoring
--- NOTE | 2016-11-19 08:06 | Cons- Hematology ---
General Information and HPI Consulting Request Date of Consult: 11/19/16 Requested By: LIZET PAYTON,BALJINDER Dickey History of Present Illness: 61-year-old diagnosed on 11/16/2016 with right DVT now admitted with pulmonary embolism. The patient recently noted right leg swelling seen by his primary care doctor placed the patient on Xarelto on 11/16/2016. 2 days later the patient just wasn't feeling well and was discovered to have pulmonary embolism. Interestingly, the patient denied shortness of breath cough chest pain or hemoptysis and the patient's leg swelling is no worse. Patient denies leg trauma, extended inactivity and denies a family history for blood clots. Of interest-the patient within the last year and eventual surgery for hernia repair and a mesh was placed. Since that time, patient says abdominal bloating and discomfort. Extensive workup has been undertaken with no definite etiology identified. CAT scan of the abdomen and pelvis, last done in September revealed a right paracolic fluid collection. Patient tells me fluid was removed and was nondiagnostic. As well, tells me a prior scan in 2013 also had this abnormality. Also identified on the CAT scan was a 0.9 cm synthetic renal process and gallstones. Allergies/Medications Allergies: Coded Allergies: No Known Allergies (11/16/16) Home Med List: Insulin Glargine,Hum.rec.anlog (Lantus Solostar) 100 UNIT/ML (3 ML) INSULN.PEN 52 UNITS SC QPM DM (Reported) Insulin Lispro (Humalog Kwikpen U-100) 100 UNIT/ML INSULN.PEN DM (Reported) Labetalol HCl 200 MG TABLET 1 TAB PO BID HEART/BP (Reported) Rivaroxaban (Xarelto) 15 MG TABLET 1 TAB PO BID dvt Rivaroxaban (Xarelto) 20 MG TABLET 1 TAB PO QPM dvt with food Valsartan/Hydrochlorothiazide (Valsartan-Hctz 320-25 MG Tab) 320 MG-25 MG TABLET 1 TAB PO DAILY BP (Reported) Current Medications: Current Medications Sig/Jose A Start time Last Medication Dose Route Stop Time Status Admin Acetaminophen 650 MG Q6P PRN 11/18 2315 AC PO Acetaminophen 1,000 MG Q6P PRN 11/18 2315 AC IV Heparin Sodium 7,500 UNIT BOLUS ONE 11/19 0500 DC 11/19 (Porcine) IV 11/19 0501 0500 Heparin Sodium 25,000 UNIT Q24H 11/19 0230 AC 11/19 (Porcine) IV 0245 Sodium Chloride 500 ML Heparin Sodium 0 .STK-MED ONE 11/18 2042 DC (Porcine) .ROUTE Heparin Sodium 5,000 UNIT ONCE ONE 11/18 2014 DC 11/18 (Porcine) IV 11/18 Heparin Sodium 25,000 UNIT ONCE ONE 11/18 2014 DC 11/18 (Porcine) IV 11/18 Sodium Chloride 500 ML Hydrochlorothiazide 25 MG DAILY 11/19 1000 AC PO Insulin Aspart 0 TIDAC/HS 11/19 0800 AC SC Insulin Detemir 26 UNITS QPM 11/18 2300 AC 11/19 SC 0046 Labetalol HCl 0 .STK-MED ONE 11/19 0022 DC PO Labetalol HCl 200 MG BID 11/18 2257 AC 11/19 PO 0022 Losartan Potassium 100 MG DAILY 11/19 1000 AC PO Morphine Sulfate 2 MG Q6-PRN PRN 11/18 2315 AC IV Review of Systems Review of Systems: Patient denies headaches or dizziness. Patient denies nausea vomiting diarrhea or change in bowel habits. Patient denies dysuria hematuria. Patient has chronic back pain denies focal neurologic deficit currently. Past History Travel History Traveled to [place] past 21 day No Medical History Blood Transfusion Hx: No Neurological: seizure EENT: NONE Cardiovascular: hypertension, hyperlipidemia Respiratory: NONE Gastrointestinal: abdominal pain with fluid collection in the paracolic gutter Hepatic: NONE Renal: NONE Musculoskeletal: NONE Psychiatric: NONE Endocrine: insulin-dependent T2DM Blood Disorders: DVT, PE Cancer(s): bone cancer of right lower leg (1961) Surgical History Surgical History: excision of left neck soft tissue mass hernia repair x2 (most recent one in March 2016) resection of right lower leg bone cancer (1961) and bone graft placement TURP Family History Relations & Conditions If Any: PATERNAL GRANDMOTHER FH: diabetes mellitus Psychosocial History Where Do You Live? Home Services at Home: None Primary Language: Cape Verdean Smoking Status: Never Smoked ETOH Use: denies use Functional Ability ADLs Independent: dressing, eating, toileting, bathing. Ambulation: independent IADLs Independent: shopping, housework, finances, food prep, telephone, transportation , medication admin. Employment History Employment: Retired Profession/Employer: [employer] Exam & Diagnostic Data Vital Signs and I&O Vital Signs Date Time Temp Pulse Resp B/P B/P Pulse O2 O2 Flow FiO2 Mean Ox Delivery Rate 11/19 0308 94 Room Air 11/19 0217 98.2 73 18 168/84 94 Room Air 11/19 0119 97.4 77 18 157/70 95 Room Air 11/19 0022 97.6 73 18 160/75 06/ 0005 97.6 73 18 160/75 94 Room Air 11/18 2243 97.2 68 18 156/84 94 Room Air 11/18 2024 97.7 65 18 162/66 96 Room Air 11/18 2006 96.5 66 18 191/89 97 Room Air Intake & Output 11/19 1600 11/19 0800 11/19 0000 Intake Total 448 Output Total Balance 448 Intake, IV 208 Intake, Oral 240 Patient 222 lb 222 lb Weight Weight Estimated Measurement Method Gen.: in NAD ENT: Sclera anicteric Chest: Normal respiratory effort, clear breath sounds Cor: RRR, no extra sounds Abdomen: Soft, bowel sounds present, no tenderness, no rebound Extremities: Without clubbing, cyanosis, right lower extremity edema Neurology: Alert and oriented 3, no gross deficit Skin: No rashes Last 48 Hours of Lab Results: Laboratory Tests 11/19 Chemistry Sodium (137 - 145 mmol/L) 137 Potassium (3.5 - 5.1 mmol/L) 4.1 Chloride (98 - 107 mmol/L) 101 Carbon Dioxide (22 - 30 mmol/L) 30 Anion Gap (5 - 16) 7 BUN (9 - 20 mg/dL) 32 H Creatinine (0.7 - 1.2 mg/dL) 1.2 Estimated GFR (>60 ml/min) > 60 BUN/Creatinine Ratio (7 - 25 %) 26.7 H Glucose (65 - 99 mg/dL) 259 H Calcium (8.4 - 10.2 mg/dL) 9.0 Total Bilirubin (0.2 - 1.3 mg/dL) 0.5 AST (17 - 59 U/L) 23 ALT (21 - 72 U/L) 22 Alkaline Phosphatase (< 127 U/L) 68 Troponin I (<0.11 ng/ml) 0.11 *H 0.13 *H Total Protein (6.3 - 8.2 g/dL) 5.8 L Albumin (3.5 - 5.0 g/dL) 3.1 L Globulin (1.9 - 4.2 gm/dL) 2.7 Albumin/Globulin Ratio (1.1 - 2.2 %) 1.1 Coagulation PT (9.4 - 12.5 SEC) 14.3 H INR (0.90 - 1.17) 1.37 H APTT (25 - 37 SEC) 44 H 35 Hematology CBC w Diff NO MAN DIFF REQ WBC (4.8 - 10.8 /CUMM) 8.7 RBC (4.70 - 6.10 /CUMM) 4.33 L Hgb (14.0 - 18.0 G/DL) 13.5 L Hct (42 - 52 %) 40.0 L MCV (80.0 - 94.0 FL) 92.4 MCH (27.0 - 31.0 PG) 31.2 H RDW (11.5 - 14.5 %) 13.0 Plt Count (130 - 400 /CUMM) 237 MPV (7.4 - 10.4 FL) 7.4 Gran % (42.2 - 75.2 %) 65.3 Lymphocytes % (20.5 - 51.1 %) 21.0 Monocytes % (1.7 - 9.3 %) 9.0 Eosinophils % (0 - 5 %) 4.2 Basophils % (0.0 - 2.0 %) 0.5 Absolute Granulocytes (1.4 - 6.5 /CUMM) 5.7 Absolute Lymphocytes (1.2 - 3.4 /CUMM) 1.8 Absolute Monocytes (0.10 - 0.60 /CUMM) 0.8 H Absolute Eosinophils (0.0 - 0.7 /CUMM) 0.4 Absolute Basophils (0.0 - 0.2 /CUMM) 0 PUBS MCHC (33.0 - 37.0 G/DL) 33.8 Imaging/Other Studies: Doppler ultrasound-right DVT [id number] emboli, small lung nodules Assessment/Plan Assessment: 1. Unprovoked DVT/PE.... Patient is currently on heparin and will be transitioned to oral anticoagulation. I would not advocate Xarelto due to the nonspecific complaints the patient while on this drug for 2 days. I agree with the assessment that this patient is not a Xarelto failure. If Coumadin is chosen, please obtain protein C and protein S levels prior to institution of this medicine. The remainder of the other bloodwork for hypercoagulability and be obtained in my office as an outpatient. Findings on the CAT scan (abdomen and pelvis), given its chronicity would not likely represent malignancy. Recommend- As above Vascular surgery is to see the patient Follow-up my office 2. Seizure 3. Diabetes 4. Hypertension I discussed this in full with the patient Recommendations: .. Consult Acknowledgment - Thank you for your consult request.
[2016-11-19 10:06] LABS: ABSOLUTE BASOPHIL COUNT 0 /CUMM (0.0-0.2); ABSOLUTE EOSINOPHIL COUNT 0.3 /CUMM (0.0-0.7); ABSOLUTE GRANULOCYTE CT 4.9 /CUMM (1.4-6.5); ABSOLUTE LYMPH COUNT 1.3 /CUMM (1.2-3.4); ABSOLUTE MONOCYTE COUNT 0.7 /CUMM (0.10-0.60); BASOPHIL % 0.3 % (0.0-2.0); EOSINOPHIL % 4.4 % (0-5); GRANULOCYTE % 67.3 % (42.2-75.2); HEMATOCRIT 38.3 % (42-52); MEAN CORPUSCULAR HGB 30.9 PG (27.0-31.0); MEAN CORPUSCULAR HGB CONC 33.9 G/DL (33.0-37.0); MEAN CORPUSCULAR VOLUME 91.3 FL (80.0-94.0); MEAN PLATELET VOLUME 7.7 FL (7.4-10.4); PLATELET COUNT 203 /CUMM (130-400); RBC DISTRIBUTION WIDTH 12.8 % (11.5-14.5); WHITE BLOOD CELL COUNT 7.3 /CUMM (4.8-10.8)
[2016-11-19 12:55] LABS: PTT 74 SEC (25-37)
[2016-11-19 13:04] VITALS: BP 160/78
[2016-11-19] MEDS ORDERED: ELIQUIS5 M2 PO ×2 (13:29→17:18)
--- NOTE | 2016-11-19 13:35 | Patient Discharge Instructions ---
Discharge Instructions General Discharge Information You were seen/treated for: Acute RLE DVT/PE Elevated troponin Insulin-dependent T2DM Hypertension Special Instructions: Please schedule a follow-up appointment with your primary care physician, pigment grinder, and vascular surgery within 1 week. Diet Continue normal diet: Yes Recommended Diet: Heart Healthy Activity Full Activity/No Limits: Yes Activity Self Limited: Yes Acute Coronary Syndrome Inclusion Criteria At DC or during hospital stay patient has or had the following: ACS DIAGNOSIS No Discharge Core Measures Meds if any: Prescribed or Continued at Discharge DIANNE/ARB if EF <40% No Aspirin No Beta-Paolo No Statin No Meds if any: NOT Prescribed or Continued at Discharge Congestive Heart Failure Inclusion Criteria At DC or during hospital stay patient has or had the following: CHF DIAGNOSIS No Discharge Core Measures Meds if any: Prescribed or Continued at Discharge Meds if any: NOT Prescribed or Continued at Discharge Cerebrovascular accident Inclusion Criteria At DC or during hospital stay patient has or had the following: CVA/TIA Diagnosis No Discharge Core Measures Meds if any: Prescribed or Continued at Discharge Meds if any: NOT Prescribed or Continued at Discharge Venous thromboembolism Inclusion Criteria VTE Diagnosis Yes VTE Type Pulmonary Embolism VTE Confirmed by (Test) CT CHEST ANGIOGRAM Discharge Core Measures - Per Current guidelines, there needs to be overlap - treatment for the first 5 days of Warfarin therapy. - If discharged on Warfarin prior to 5 days of - overlap therapy, the patient will need to be - assessed for post discharge needs including - *Post discharge parental anticoagulation - *Warfarin and/or parental anticoagulation education - *Follow up date to check INR post discharge At least 5 days overlap therapy as Inpatient No Why was Parental Med stopped Other Anticoagulant given Meds if any: Prescribed or Continued at Discharge Warfarin No Note: Overlap Therapy is Warfarin and Anticoagulant Meds if any: NOT Prescribed or Continued at Discharge No Warfarin d/t Prescribed other Anticoag No Overlap Therapy d/t Prescribed other Anticoag
--- NOTE | 2016-11-19 13:53 | Cons- Cardiology ---
General Information and HPI Consulting Request Date of Consult: 11/19/16 Requested By: BALJINDER HINDS MD Reason for Consult: Pulmonary embolism with minimal troponin rise Source of Information: patient, old records Exam Limitations: no limitations History of Present Illness: The patient is a 61-year-old man with hypertension, dyslipidemia and diabetes. The patient presented a couple days ago with DVT and was placed on Xarelto. He started to get some adverse reaction from the Xarelto and saw his physician who recommended a CAT scan of the chest, which documented pulmonary embolism. Subsequently he was sent to the emergency department and placed on IV heparin. At no point did he have any chest pain or shortness of breath, palpitations, dizziness, syncope. Currently he feels well. He was noted to have elevated troponin of 0.13, repeat 0.11, repeat 0.08. His EKG has shown only some minor nonspecific T-wave changes. The patient also notes he has a known heart murmur and has had echocardiograms in the past for evaluation of this but is not aware of any specific abnormality. Allergies/Medications Allergies: Coded Allergies: No Known Allergies (11/16/16) Home Med List: Apixaban (Eliquis) 5 MG TABLET 1 TAB PO SEE ADMIN CRITERIA PE SEE DISCHARGE INSTRUCTIONS Insulin Glargine,Hum.rec.anlog (Lantus Solostar) 100 UNIT/ML (3 ML) INSULN.PEN 52 UNITS SC QPM DM (Reported) Insulin Lispro (Humalog Kwikpen U-100) 100 UNIT/ML INSULN.PEN DM (Reported) Labetalol HCl 200 MG TABLET 1 TAB PO BID HEART/BP (Reported) Rivaroxaban (Xarelto) 15 MG TABLET 1 TAB PO BID dvt Rivaroxaban (Xarelto) 20 MG TABLET 1 TAB PO QPM dvt with food Valsartan/Hydrochlorothiazide (Valsartan-Hctz 320-25 MG Tab) 320 MG-25 MG TABLET 1 TAB PO DAILY BP (Reported) Current Medications: Current Medications Sig/Jose A Start time Last Medication Dose Route Stop Time Status Admin Acetaminophen 650 MG Q6P PRN 11/18 2315 AC PO Acetaminophen 1,000 MG Q6P PRN 11/18 2315 AC IV Heparin Sodium 7,500 UNIT BOLUS ONE 11/19 0500 DC 11/19 (Porcine) IV 11/19 0501 0500 Heparin Sodium 25,000 UNIT Q24H 11/19 0230 AC 11/19 (Porcine) IV 0245 Sodium Chloride 500 ML Heparin Sodium 0 .STK-MED ONE 11/18 2042 DC (Porcine) .ROUTE Heparin Sodium 5,000 UNIT ONCE ONE 11/18 2014 DC 11/18 (Porcine) IV 11/18 Heparin Sodium 25,000 UNIT ONCE ONE 11/18 2014 DC 11/18 (Porcine) IV 11/18 Sodium Chloride 500 ML Hydrochlorothiazide 25 MG DAILY 11/19 1000 AC 11/19 PO 0914 Insulin Aspart 0 TIDAC/HS 11/19 0800 AC 11/19 SC 1235 Insulin Detemir 26 UNITS QPM 11/18 2300 AC 11/19 SC 0046 Labetalol HCl 0 .STK-MED ONE 11/19 0022 DC PO Labetalol HCl 200 MG BID 11/18 2257 AC 11/19 PO 0914 Losartan Potassium 100 MG DAILY 11/19 1000 AC 11/19 PO 0914 Morphine Sulfate 2 MG Q6-PRN PRN 11/18 2315 AC IV Review of Systems Review of Systems: He has no other complaints in the review of systems. Past History Travel History Traveled to [place] past 21 day No Medical History Blood Transfusion Hx: No Neurological: seizure EENT: NONE Cardiovascular: hypertension, hyperlipidemia Respiratory: NONE Gastrointestinal: abdominal pain with fluid collection in the paracolic gutter Hepatic: NONE Renal: NONE Musculoskeletal: NONE Psychiatric: NONE Endocrine: insulin-dependent T2DM Blood Disorders: DVT, PE Cancer(s): bone cancer of right lower leg (1961) Surgical History Surgical History: excision of left neck soft tissue mass hernia repair x2 (most recent one in March 2016) resection of right lower leg bone cancer (1961) and bone graft placement TURP Family History Relations & Conditions If Any: PATERNAL GRANDMOTHER FH: diabetes mellitus Psychosocial History Where Do You Live? Home Services at Home: None Primary Language: Turkmen Smoking Status: Never Smoked ETOH Use: denies use Functional Ability ADLs Independent: dressing, eating, toileting, bathing. Ambulation: independent IADLs Independent: shopping, housework, finances, food prep, telephone, transportation , medication admin. 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 Exam & Diagnostic Data Vital Signs and I&O Vital Signs Date Time Temp Pulse Resp B/P B/P Pulse O2 O2 Flow FiO2 Mean Ox Delivery Rate 11/19 1304 97.8 93 20 160/78 94 Room Air 11/19 0914 68 148/70 11/19 0914 68 148/70 11/19 0800 95 Room Air 11/19 0308 94 Room Air 11/19 0217 98.2 73 18 168/84 94 Room Air 11/19 0119 97.4 77 18 157/70 95 Room Air 11/19 0022 97.6 73 18 160/75 11/19 0005 97.6 73 18 160/75 94 Room Air 11/18 2243 97.2 68 18 156/84 94 Room Air 11/18 2024 97.7 65 18 162/66 96 Room Air 11/18 2006 96.5 66 18 191/89 97 Room Air Intake & Output 11/19 1600 11/19 0000 11/18 1600 11/19 0700 11/18 0000 Intake Total 448 Output Total Balance 448 Intake, IV 208 Intake, Oral 240 Patient 222 lb 222 lb Weight Weight Estimated Measurement Method Physical Exam: Well-developed well-nourished middle-aged male in no acute distress HEENT exam normal Neck veins not distended Carotids normal without bruits Chest clear Heart grade 2 to 3/6 systolic ejection murmur at the base. Abdomen benign Extremities good pulses no edema or calf tenderness. Labs/Darinel Results: Laboratory Tests 11/19 11/19 11/19 11/19 1130 1130 1100 0845 Chemistry Troponin I Cancelled Coagulation APTT (25 - 37 SEC) 74 H Lupus Anticoagulant Pending LA PTT Screen Pending Dil Asa Viper Venom Pending Protein C Activity Pending Protein S Pending Antithrombin III Activ Pending Immunology PEACE Titer Pending Anti-Nuclear Antibody Pending 11/19 11/19 0845 0240 Chemistry Sodium (137 - 145 mmol/L) 134 L Potassium (3.5 - 5.1 mmol/L) 4.4 Chloride (98 - 107 mmol/L) 101 Carbon Dioxide (22 - 30 mmol/L) 25 Anion Gap (5 - 16) 7 BUN (9 - 20 mg/dL) 27 H Creatinine (0.7 - 1.2 mg/dL) 1.2 Estimated GFR (>60 ml/min) > 60 BUN/Creatinine Ratio (7 - 25 %) 22.5 Troponin I (<0.11 ng/ml) 0.08 0.11 *H Coagulation APTT (25 - 37 SEC) 44 H Hematology CBC w Diff NO MAN DIFF REQ WBC (4.8 - 10.8 /CUMM) 7.3 RBC (4.70 - 6.10 /CUMM) 4.20 L Hgb (14.0 - 18.0 G/DL) 13.0 L Hct (42 - 52 %) 38.3 L MCV (80.0 - 94.0 FL) 91.3 MCH (27.0 - 31.0 PG) 30.9 RDW (11.5 - 14.5 %) 12.8 Plt Count (130 - 400 /CUMM) 203 MPV (7.4 - 10.4 FL) 7.7 Gran % (42.2 - 75.2 %) 67.3 Lymphocytes % (20.5 - 51.1 %) 18.4 L Monocytes % (1.7 - 9.3 %) 9.6 H Eosinophils % (0 - 5 %) 4.4 Basophils % (0.0 - 2.0 %) 0.3 Absolute Granulocytes (1.4 - 6.5 /CUMM) 4.9 Absolute Lymphocytes (1.2 - 3.4 /CUMM) 1.3 Absolute Monocytes (0.10 - 0.60 /CUMM) 0.7 H Absolute Eosinophils (0.0 - 0.7 /CUMM) 0.3 Absolute Basophils (0.0 - 0.2 /CUMM) 0 PUBS MCHC (33.0 - 37.0 G/DL) 33.9 11/18 2014 Chemistry Sodium (137 - 145 mmol/L) 137 Potassium (3.5 - 5.1 mmol/L) 4.1 Chloride (98 - 107 mmol/L) 101 Carbon Dioxide (22 - 30 mmol/L) 30 Anion Gap (5 - 16) 7 BUN (9 - 20 mg/dL) 32 H Creatinine (0.7 - 1.2 mg/dL) 1.2 Estimated GFR (>60 ml/min) > 60 BUN/Creatinine Ratio (7 - 25 %) 26.7 H Glucose (65 - 99 mg/dL) 259 H Calcium (8.4 - 10.2 mg/dL) 9.0 Total Bilirubin (0.2 - 1.3 mg/dL) 0.5 AST (17 - 59 U/L) 23 ALT (21 - 72 U/L) 22 Alkaline Phosphatase (< 127 U/L) 68 Troponin I (<0.11 ng/ml) 0.13 *H Total Protein (6.3 - 8.2 g/dL) 5.8 L Albumin (3.5 - 5.0 g/dL) 3.1 L Globulin (1.9 - 4.2 gm/dL) 2.7 Albumin/Globulin Ratio (1.1 - 2.2 %) 1.1 Coagulation PT (9.4 - 12.5 SEC) 14.3 H INR (0.90 - 1.17) 1.37 H APTT (25 - 37 SEC) 35 Hematology CBC w Diff NO MAN DIFF REQ WBC (4.8 - 10.8 /CUMM) 8.7 RBC (4.70 - 6.10 /CUMM) 4.33 L Hgb (14.0 - 18.0 G/DL) 13.5 L Hct (42 - 52 %) 40.0 L MCV (80.0 - 94.0 FL) 92.4 MCH (27.0 - 31.0 PG) 31.2 H RDW (11.5 - 14.5 %) 13.0 Plt Count (130 - 400 /CUMM) 237 MPV (7.4 - 10.4 FL) 7.4 Gran % (42.2 - 75.2 %) 65.3 Lymphocytes % (20.5 - 51.1 %) 21.0 Monocytes % (1.7 - 9.3 %) 9.0 Eosinophils % (0 - 5 %) 4.2 Basophils % (0.0 - 2.0 %) 0.5 Absolute Granulocytes (1.4 - 6.5 /CUMM) 5.7 Absolute Lymphocytes (1.2 - 3.4 /CUMM) 1.8 Absolute Monocytes (0.10 - 0.60 /CUMM) 0.8 H Absolute Eosinophils (0.0 - 0.7 /CUMM) 0.4 Absolute Basophils (0.0 - 0.2 /CUMM) 0 PUBS MCHC (33.0 - 37.0 G/DL) 33.8 Diagnostic Data EKG Results EKG on admission shows sinus rhythm at a rate of 72 with nonspecific lateral T- wave changes. Repeat EKGs have been similar except for a PACs seen on the last EKG done this morning. CXR Results A plain chest x-ray was not done but a CAT scan of the chest was done. Other Results IMPRESSION: 1. Adequate contrast opacification of the pulmonary arterial vasculature. Pulmonary emboli are identified within segmental and subsegmental branches of the left upper and left lower lobes. No large central emboli are identified. There are no findings indicative of right heart strain. 2. Incidental note is made of subcentimeter nodules along the right minor fissure as well as along the periphery of the right middle lobe. These nodules are entirely nonspecific. Various management parameters for solitary pulmonary nodules are in the literature. According to the Fleischner Society, recommendations for pulmonary nodules are as follows: Nodule size < 6 mm in LOW RISK PATIENTS: No follow up needed. Nodule size < 6 mm in HIGH RISK PATIENTS: Optional follow-up up CT in 12 months. This critical result was discussed with Dr. Kory Owens at 2:57 PM on 11/18/2016 and it was ascertained that the content and urgency of the report was understood at the time of direct communication. DICTATED BY: KISHOR KNAPP MD DATE/TIME DICTATED:11/18/161440 CHARGING MANIPULATOR:DIVYA DATE/TIME TRANSCRIBED:11/18/161440 CONFIDENTIAL, DO NOT COPY WITHOUT APPROPRIATE AUTHORIZATION. Assessment/Plan Assessment/Plan This patient presents with DVT and pulmonary embolism. He had adverse reaction to Xarelto as an outpatient and is now on IV heparin. He had a mild troponin rise probably due to demand ischemia from the pulmonary embolism. He has underlying probable mild aortic stenosis by examination. There is no history of coronary artery disease but he has significant risk factors. His EKG is benign. I recommend an echocardiogram for evaluation of pulmonary artery pressures as well as his aortic valve and left ventricular contractility. I don't think it is likely he will need aggressive or interventional cardiac evaluation on this admission. He should have a stress test as an outpatient once he has been adequately treated for his pulmonary embolism. Hypercoagulable workup is in progress and a decision regarding ultimate anticoagulant will be made prior to discharge. Consult Acknowledgment - Thank you for your consult request.
--- NOTE | 2016-11-19 14:52 | PN- Att Addend ---
Attending MD Review Statement Attending Statement Attending MD Statement: examined this patient, discuss w/resident/PA/CALENDER ROLL PRESS OPERATOR, agreed w/resident/PA/CALENDER ROLL PRESS OPERATOR, discussed with family, reviewed EMR data (avail), discussed w/ nursing, discussed w/case mgmt Attending Assessment/Plan: Laboratory Tests 11/19/16 1130: Lupus Anticoagulant Pending, LA PTT Screen Pending, Dil Asa Viper Venom Pending, Protein C Activity Pending, Protein S Pending, Antithrombin III Activ Pending 11/19/16 1130: APTT 74 H 11/19/16 1100: PEACE Titer Pending, Anti-Nuclear Antibody Pending 11/19/16 0845: Troponin I Cancelled 11/19/16 0845: Anion Gap 7, Estimated GFR > 60, BUN/Creatinine Ratio 22.5, Troponin I 0.08, CBC w Diff NO MAN DIFF REQ, RBC 4.20 L, MCV 91.3, MCH 30.9, RDW 12.8, MPV 7.7, Gran % 67.3, Lymphocytes % 18.4 L, Monocytes % 9.6 H, Eosinophils % 4.4, Basophils % 0.3, Absolute Granulocytes 4.9, Absolute Lymphocytes 1.3, Absolute Monocytes 0.7 H, Absolute Eosinophils 0.3, Absolute Basophils 0, PUBS MCHC 33.9 11/19/16 0240: Troponin I 0.11 *H, APTT 44 H 11/18/16 2015: Anion Gap 7, Estimated GFR > 60, BUN/Creatinine Ratio 26.7 H, Glucose 259 H, Calcium 9.0, Total Bilirubin 0.5, AST 23, ALT 22, Alkaline Phosphatase 68, Troponin I 0.13 *H, Total Protein 5.8 L, Albumin 3.1 L, Globulin 2.7, Albumin/ Globulin Ratio 1.1, PT 14.3 H, INR 1.37 H, APTT 35, CBC w Diff NO MAN DIFF REQ , RBC 4.33 L, MCV 92.4, MCH 31.2 H, RDW 13.0, MPV 7.4, Gran % 65.3, Lymphocytes % 21.0, Monocytes % 9.0, Eosinophils % 4.2, Basophils % 0.5, Absolute Granulocytes 5.7, Absolute Lymphocytes 1.8, Absolute Monocytes 0.8 H, Absolute Eosinophils 0.4, Absolute Basophils 0, PUBS MCHC 33.8 Vital Signs Date Time Temp Pulse Resp B/P B/P Pulse O2 O2 Flow FiO2 Mean Ox Delivery Rate 11/19 1304 97.8 93 20 160/78 94 Room Air 11/19 0914 68 148/70 11/19 0914 68 148/70 11/19 0800 95 Room Air 11/19 0308 94 Room Air 11/19 0217 98.2 73 18 168/84 94 Room Air 11/19 0119 97.4 77 18 157/70 95 Room Air 11/19 0022 97.6 73 18 160/75 06/ 0005 97.6 73 18 160/75 94 Room Air 11/18 2243 97.2 68 18 156/84 94 Room Air 11/18 2024 97.7 65 18 162/66 96 Room Air 11/18 2006 96.5 66 18 191/89 97 Room Air Pt admitted with PE, recently diagnosed with DVT rt leg. Vascular to see pt today. If no intervention planned then will dc pt on eliquis home today. Hypercoagulability workup ordered. will f/w with pcp for results. d/w pt and pts family the care plan.
--- NOTE | 2016-11-19 16:00 | Cons- Vascular Surgery ---
General Information and HPI Consulting Request Date of Consult: 11/19/16 Requested By: LIZET PAYTON,BALJINDER Dickey History of Present Illness: 61-year-old male with right leg DVT. 4 days ago, noted sudden onset of right leg edema without pain. He was seen by his primary care physician, and ultrasound revealed a right leg DVT. He was started on oral anticoagulation, Xarelto, as an outpatient. Patient had unusual reaction, vague abdominal symptoms, and diarrhea. 2 days after starting anticoagulation, patient is CT entry of the chest showed pulmonary embolism. He denies shortness of breath or chest pain at the time. He was admitted yesterday for the pulmonary embolism, DVT and started on IV heparin. Ultrasound shows right leg DVT up to the femoral vein. No history of DVT in the past. Patient is generally active. However 4-5 days ago he did state he was in a car for many hours. One year ago the patient had hernia surgery, with a prolonged convalescent period. Allergies/Medications Allergies: Coded Allergies: No Known Allergies (11/16/16) Home Med List: Apixaban (Eliquis) 5 MG TABLET 1 TAB PO SEE ADMIN CRITERIA PE SEE DISCHARGE INSTRUCTIONS Insulin Glargine,Hum.rec.anlog (Lantus Solostar) 100 UNIT/ML (3 ML) INSULN.PEN 52 UNITS SC QPM DM (Reported) Insulin Lispro (Humalog Kwikpen U-100) 100 UNIT/ML INSULN.PEN DM (Reported) Labetalol HCl 200 MG TABLET 1 TAB PO BID HEART/BP (Reported) Rivaroxaban (Xarelto) 15 MG TABLET 1 TAB PO BID dvt Rivaroxaban (Xarelto) 20 MG TABLET 1 TAB PO QPM dvt with food Valsartan/Hydrochlorothiazide (Valsartan-Hctz 320-25 MG Tab) 320 MG-25 MG TABLET 1 TAB PO DAILY BP (Reported) Current Medications: Current Medications Sig/Jose A Start time Last Medication Dose Route Stop Time Status Admin Acetaminophen 650 MG Q6P PRN 11/18 2315 AC PO Acetaminophen 1,000 MG Q6P PRN 11/18 2315 AC IV Heparin Sodium 7,500 UNIT BOLUS ONE 11/19 0500 DC 11/19 (Porcine) IV 11/19 0501 0500 Heparin Sodium 25,000 UNIT Q24H 11/19 0230 AC 11/19 (Porcine) IV 1406 Sodium Chloride 500 ML Heparin Sodium 0 .STK-MED ONE 11/18 2042 DC (Porcine) .ROUTE Heparin Sodium 5,000 UNIT ONCE ONE 11/18 2014 DC 11/18 (Porcine) IV 11/18 Heparin Sodium 25,000 UNIT ONCE ONE 11/18 2014 DC 11/18 (Porcine) IV 11/18 Sodium Chloride 500 ML Hydrochlorothiazide 25 MG DAILY 11/19 1000 AC 11/19 PO 0914 Insulin Aspart 0 TIDAC/HS 11/19 08 AC 11/19 SC 1235 Insulin Detemir 26 UNITS QPM 11/18 2300 AC 11/19 SC 0046 Labetalol HCl 0 .STK-MED ONE 11/19 0022 DC PO Labetalol HCl 200 MG BID 11/18 2257 AC 11/19 PO 0914 Losartan Potassium 100 MG DAILY 11/19 1000 AC 11/19 PO 0914 Morphine Sulfate 2 MG Q6-PRN PRN 11/18 2315 AC IV Patient Medication 1 ED .STK-MED ONE 11/19 1424 RI Teaching ED 11/19 1425 Past History Medical History Blood Transfusion Hx: No Neurological: seizure EENT: NONE Cardiovascular: hypertension, hyperlipidemia Respiratory: NONE Gastrointestinal: abdominal pain with fluid collection in the paracolic gutter Hepatic: NONE Renal: NONE Musculoskeletal: NONE Psychiatric: NONE Endocrine: insulin-dependent T2DM Blood Disorders: DVT, PE Cancer(s): bone cancer of right lower leg (1961) Surgical History Pertinent Surgical History: excision of left neck soft tissue mass hernia repair x2 (most recent one in March 2016) resection of right lower leg bone cancer ( 1961) and bone graft placement TURP Family History Relations & Conditions If Any: PATERNAL GRANDMOTHER FH: diabetes mellitus Psychosocial History Where Do You Live? Home Services at Home: None Primary Language: Rw[place] Smoking Status: Never Smoked ETOH Use: denies use Functional Ability ADLs Independent: dressing, eating, toileting, bathing. Ambulation: independent IADLs Independent: shopping, housework, finances, food prep, telephone, transportation , medication admin. Employment History Employment: Retired Profession/Employer: [employer] Review of Systems Review of Systems Constitutional: Denies: chills, fever, unexplained weight loss. EENTM: Denies: blurred vision, double vision. Cardiovascular: Denies: chest pain. Respiratory: Denies: short of breath. GI: Reports: diarrhea. Musculoskeletal: Denies: joint pain. Skin: Denies: no symptoms. Neurological/Psychological: Denies: no symptoms. Hematologic/Endocrine: Denies: bleeding. Exam & Diagnostic Data Vital Signs and I&O Vital Signs Date Time Temp Pulse Resp B/P B/P Pulse O2 O2 Flow FiO2 Mean Ox Delivery Rate 11/19 1304 97.8 93 20 160/78 94 Room Air 11/19 0914 68 148/70 11/19 0914 68 148/70 11/19 0800 95 Room Air 11/19 0308 94 Room Air 11/19 0217 98.2 73 18 168/84 94 Room Air 11/19 0119 97.4 77 18 157/70 95 Room Air 11/19 0022 97.6 73 18 160/75 11/19 0005 97.6 73 18 160/75 94 Room Air 11/18 2243 97.2 68 18 156/84 94 Room Air 11/18 2024 97.7 65 18 162/66 96 Room Air 11/18 2006 96.5 66 18 191/89 97 Room Air Intake & Output 11/19 1600 11/19 0800 11/19 0000 11/18 1600 11/18 0800 11/18 0000 Intake Total 672 448 Output Total Balance 672 448 Intake, IV 272 208 Intake, Oral 400 240 Patient 100.698 kg 100.698 kg Weight Weight Estimated Measurement Method Physical Exam General Appearance: well developed/nourished, no apparent distress, alert, awake , comfortable Head: normal appearance Eyes: Bilateral: normal appearance. Neck: normal inspection Respiratory: normal breath sounds Cardiovascular: regular rate/rhythm Peripheral Pulses: 2+ tibialis posterior (R), 2+ tibialis posterior (L) Extremities: mild right lerma edema Neurologic/Psych: no motor/sensory deficits, awake, alert, oriented x 3 Assessment/Plan Assessment/Plan #1. Right leg DVT and pulmonary embolism. Idiopathic/unprovoked right leg DVT with concurrent pulmonary embolism. According to patient's history, pulmonary embolism symptoms were not obvious. Extent of right leg DVT not an indication for catheter directed thrombolysis. This is best treated with full anticoagulation, compression stockings. Recommend early ambulation as long as patient is anticoagulated. Agree with anticoagulation. Due to idiopathic/unprovoked nature of right leg DVT, would recommend at least 6 months, maybe longer. Agree with hematology evaluation and workup. Can consider right leg ultrasound follow-up in 6 months after treatment. However, inclination is to continue anticoagulation indefinitely regardless of findings at that time. Can follow-up with vascular in 6 months for right leg venous ultrasound studies. Discussed with patient at bedside. Problem List: 1. DVT (deep venous thrombosis) 2. Pulmonary embolism Other Findings/Comments: PATIENT: ELE LEIGH PRESENT AGE: 61 PATIENT ACCOUNT NO: [id number] : 53 LOCATION: [email or web address] ORDERING PHYSICIAN: ASHLEY PARRY APRN SERVICE DATE: 11/16/16 EXAM TYPE: US - US-UNILATERAL VENOUS DOPPLER EXAMINATION: US TRIPLEX LOWER EXTREMITY, RIGHT CLINICAL INFORMATION: Right leg swelling. Assess for DVT and Madrigal's cyst rupture. COMPARISON: None. TECHNIQUE: Color-flow triplex imaging with spectral analysis and compression Doppler were performed on the right lower extremity. FINDINGS: Respiratory variation, normal compression and augmented flow are early noted in the greater saphenous and common femoral veins. The visualized superficial femoral vein, popliteal vein and midcalf peroneal and posterior tibial venous segments have absent flow and are not compressible. There are no focal fluid collections. IMPRESSION: 1. The study demonstrates extensive deep vein thrombus from the calf through the upper superficial femoral vein. 2. There are no focal fluid collections. 3. This critical result was discussed with Ashley Parry DIRECTOR OF REVENUE CYCLE MANAGEMENT by telephone on 11/16/2016 at 2:36 PM and it was ascertained that the content and urgency of the report was understood at the time of direct communication. The patient was directed to the ER at [facility] for further management. DICTATED BY: JACK COOPER MD DATE/TIME DICTATED:11/16/161434 PLANT ANATOMIST:DIVYA DATE/TIME TRANSCRIBED:11/16/161434 CONFIDENTIAL, DO NOT COPY WITHOUT APPROPRIATE AUTHORIZATION. <Electronically signed in Other Vendor System> SIGNED BY: JACK COOPER MD 11/16/16 2913 Consult Acknowledgment - Thank you for your consult request.
[2016-11-19 16:15] VITALS: BP 140/66
--- NOTE | 2016-11-19 17:23 | Event Note ---
Event Note Event Note: Since Vascular not planning for any interventions in neare future. Patient started on Eliquis 10mg BID, will d/c heparin drip one hour after administration of first dose of eliquis. We will see how he tolerates it since he had adverse reactions with Xeralto. Above discussed with .
[2016-11-19 22:30] VITALS: BP 152/60
[2016-11-20 08:20] LABS: ABSOLUTE BASOPHIL COUNT 0 /CUMM (0.0-0.2); ABSOLUTE EOSINOPHIL COUNT 0.3 /CUMM (0.0-0.7); ABSOLUTE GRANULOCYTE CT 5.1 /CUMM (1.4-6.5); ABSOLUTE LYMPH COUNT 1.4 /CUMM (1.2-3.4); ABSOLUTE MONOCYTE COUNT 0.8 /CUMM (0.10-0.60); BASOPHIL % 0.4 % (0.0-2.0); EOSINOPHIL % 4.4 % (0-5); GRANULOCYTE % 67.1 % (42.2-75.2); HEMATOCRIT 39.7 % (42-52); MEAN CORPUSCULAR HGB 30.8 PG (27.0-31.0); MEAN CORPUSCULAR HGB CONC 33.5 G/DL (33.0-37.0); MEAN CORPUSCULAR VOLUME 92.1 FL (80.0-94.0); MEAN PLATELET VOLUME 7.9 FL (7.4-10.4); PLATELET COUNT 219 /CUMM (130-400); RED BLOOD CELL CT 4.32 /CUMM (4.70-6.10); WHITE BLOOD CELL COUNT 7.7 /CUMM (4.8-10.8)
[2016-11-20 08:56] VITALS: BP 162/77
--- NOTE | 2016-11-20 09:27 | PN- Housestaff ---
LYNETTE PAYTON,LINNETTE 11/20/16 0926: Subjective Follow-up For: Acute RLE DVT/PE Elevated troponin Insulin-dependent T2DM Hypertension Subjective: Patient seen and examined. He is seen lying flat in bed resting comfortably. He appears to be in no acute distress. He states that he feels fine and would like to go home. He denies any chest pain/discomfort, lightheadedness/dizziness, palpitations, nausea. He does admit that his right lower extremity is somewhat tense. Otherwise he denies any shortness of breath, cough nausea, vomiting, diarrhea. Review of Systems Constitutional: Reports: see HPI. Objective Last 24 Hrs of Vital Signs/I&O Vital Signs Date Time Temp Pulse Resp B/P B/P Pulse O2 O2 Flow FiO2 Mean Ox Delivery Rate 11/20 1719 58 162/82 11/20 1703 99.2 58 16 162/82 94 Room Air 11/20 0904 63 162/77 11/20 0903 63 162/77 11/20 0856 99.2 63 15 162/77 93 Room Air 11/19 2230 98.4 77 20 152/60 94 Room Air Intake & Output 11/20 1600 11/20 0800 11/20 0000 Intake Total 800 0 1072 Output Total Balance 800 0 1072 Intake, IV 272 Intake, Oral 800 0 800 Physical Exam General Appearance: Alert, Oriented X3, Cooperative, No Acute Distress Other Physical Findings: rGeneral- well developed, well nourished middled aged man in no acute distres HEENT- NCAT, PERRL, EOMI, anicteric sclera Chest- S1, S2; RRR Lung- CTA bilaterally Abdomen- soft, nontender, nondistended, bowel sounds intact Neuro- Awake and alert, CN II - XII grossly intact Ext- normal pulses, no cyanosis/clubbing/edema Current Medications: Current Medications Sig/Jose A Start time Last Medication Dose Route Stop Time Status Admin Acetaminophen 650 MG Q6P PRN 11/18 2315 AC PO Acetaminophen 1,000 MG Q6P PRN 11/18 2315 AC IV Amlodipine Besylate 10 MG DAILY 11/20 1452 AC 11/20 PO 1719 Apixaban 10 MG BID 11/19 2200 AC 11/20 PO 0904 Heparin Sodium 25,000 UNIT Q24H 11/19 0230 DC 11/19 (Porcine) IV 1406 Sodium Chloride 500 ML Hydrochlorothiazide 25 MG DAILY 11/19 1000 AC 11/20 PO 09 Insulin Aspart 0 TIDAC/HS 11/19 0800 AC 11/20 SC 183 Insulin Detemir 26 UNITS QPM 11/18 2300 AC 11/19 SC 2055 Labetalol HCl 200 MG BID 11/18 2257 AC 11/20 PO 09 Losartan Potassium 100 MG DAILY 11/19 1000 AC 11/20 PO 09 Morphine Sulfate 2 MG Q6-PRN PRN 11/18 2315 AC IV Last 24 Hrs of Lab/Darinel Results Last 24 Hrs of Labs/Mics: Laboratory Tests 11/20/16 0610: CBC w Diff NO MAN DIFF REQ, RBC 4.32 L, MCV 92.1, MCH 30.8, RDW 13.0, MPV 7.9, Gran % 67.1, Lymphocytes % 18.1 L, Monocytes % 10.0 H, Eosinophils % 4.4, Basophils % 0.4, Absolute Granulocytes 5.1, Absolute Lymphocytes 1.4, Absolute Monocytes 0.8 H, Absolute Eosinophils 0.3, Absolute Basophils 0, PUBS MCHC 33.5 11/19/16 2330: APTT Cancelled Assessment/Plan Assessment: Patient is doing well and denies any further subjective complaints. He is tolerating is eliquis well without any adverse effects. He was anticipated to be discharged to home today, however his echocardiogram is still pending; this must be done in hospital per Dr. Stark. He is to be discharged to home tomorrow with eliquis and norvasc pending his echocardiogram result and instruction to follow up with his community planner in about three weeks to have a stress test. Problem List: -RLE DVT/PE, on eliquis -IDDM -HTN -Hx of bone cancer s/p resection Plan: -Telemetry -Continue Eliquis -Norvasc started -F/U Echo tomorrow, DC pending results -Cardiology following -DVT PPx -FULL CODE -Outpatient stress test in three weeks Problem List: 1. Pulmonary embolism 2. DVT (deep venous thrombosis) Pain Ratin Pain Location: RLE Pain Goal: Remain pain free Pain Plan: See assessment Tomorrow's Labs & Rationales: None GIRISH PAYTON,CAROLYN 11/20/16 1323: Attending MD Review Statement Attending Statement Attending Assessment/Plan: Patient seen and examined. Plan of care discussed with the medical team and the patient. Available lab work and radiology test reports were reviewed. Patient is feeling well and denies any coughing chest pain fever chills or hemoptysis. Complains of mild right leg pain and mild abdominal pain which appears to be chronic. His vital signs stable and exam shows clear lungs. WBC count is 7.7 hematocrit 39.7. Assessment plan * Acute pulmonary embolism and right leg DVT- continue eliquis 10 mg twice a day and then switched to 5 mg twice a day in one week * Echocardiogram can be done as outpatient patient does not need to wait for this test in hospital.
--- NOTE | 2016-11-20 10:29 | PN- Cardiology ---
Subjective Subjective: * Doing well without chest discomfort or shortness of breath. Some right leg discomfort does persist. * Sinus rhythm * troponin has normalized Objective Vital Signs and I&Os Vital Signs Date Time Temp Pulse Resp B/P B/P Pulse O2 O2 Flow FiO2 Mean Ox Delivery Rate 11/20 0904 63 162/77 11/20 0903 63 162/77 11/20 0856 99.2 63 15 162/77 93 Room Air 11/19 2230 98.4 77 20 152/60 94 Room Air 11/19 2049 78 150/58 11/19 1615 98.1 66 20 140/66 94 Room Air 11/19 1304 97.8 93 20 160/78 94 Room Air Intake & Output 11/20 1600 11/20 0800 11/20 0000 11/19 1600 11/20 0700 11/19 0000 Intake Total 0 1072 672 448 Output Total Balance 0 1072 672 448 Intake, IV 272 272 208 Intake, Oral 0 800 400 240 Patient 222 lb 222 lb Weight Weight Estimated Measurement Method Physical Exam: General: WD/ WN male in NAD; alert and oriented x 3 Neck: no JVD Heart: RRR with 2/6 systolic murmur Lungs: clear bilaterally Extremities: 2+ right lower extremity edema, no edema on the left Assessment/Plan Assessment/Plan * This patient appears to be tolerating his current dose of Eliquis at 10mg BID. This should be continued for a week before decreasing to 5mg BID. * BP remains elevated. Begin Norvasc 10mg daily. Continue Losartan. * An echocardiogram is pending. * This patient should undergo a stress test in about three weeks to assess for ischemia, Continue telemetry? Yes
[2016-11-20] MEDS ORDERED: NORVASC10 M1 PO (14:54)
[2016-11-20 17:03] VITALS: BP 162/82
[2016-11-20 22:54] VITALS: BP 158/70
--- NOTE | 2016-11-21 07:09 | PN- Housestaff ---
FEDERICO PAYTON,[facility] 11/21/16 0709: Subjective Follow-up For: Acute RLE DVT/PE Elevated troponin Insulin-dependent T2DM Hypertension Tele-Events Since Last Visit: Sinus rhythm heart rate between 66-69 Subjective: seen and examined this morning. He was in bed in no acute distress. Offers no complaints, remains on Eliquis tolerating well, pending an echo and cardiac evaluation. Review of Systems Constitutional: Reports: see HPI. Objective Last 24 Hrs of Vital Signs/I&O Vital Signs Date Time Temp Pulse Resp B/P B/P Pulse O2 O2 Flow FiO2 Mean Ox Delivery Rate 11/20 2254 98.4 73 16 158/70 93 Room Air 11/20 2247 72 138/68 11/20 1719 58 162/82 11/20 1703 99.2 58 16 162/82 94 Room Air 11/20 0904 63 162/77 11/20 0903 63 162/77 11/20 0856 99.2 63 15 162/77 93 Room Air Intake & Output 11/21 1600 11/21 0800 11/21 0000 Intake Total 600 375 Output Total Balance 600 375 Intake, Oral 600 375 Physical Exam General Appearance: Alert, Oriented X3, Cooperative, No Acute Distress Cardiovascular: Regular Rate, Normal S1, Normal S2, No Murmurs Lungs: Clear to Auscultation, Normal Air Movement Abdomen: Normal Bowel Sounds, Soft, No Tenderness Extremities: No Clubbing, No Cyanosis, No Edema Current Medications: Current Medications Sig/Jose A Start time Last Medication Dose Route Stop Time Status Admin Acetaminophen 650 MG Q6P PRN 11/18 2315 AC PO Acetaminophen 1,000 MG Q6P PRN 11/18 2315 AC IV Amlodipine Besylate 10 MG DAILY 11/20 1452 AC 11/20 PO 1719 Apixaban 10 MG BID 11/19 2200 AC 11/20 PO 224 Hydrochlorothiazide 25 MG DAILY 11/19 1000 AC 11/20 PO 0904 Insulin Aspart 0 TIDAC/HS 11/19 08 AC 11/20 SC 224 Insulin Detemir 26 UNITS QPM 11/18 2300 AC 11/20 SC 2248 Labetalol HCl 200 MG BID 11/18 2257 AC 11/20 PO 224 Losartan Potassium 100 MG DAILY 11/19 1000 AC 11/20 PO 0903 Morphine Sulfate 2 MG Q6-PRN PRN 11/18 2315 AC IV Assessment/Plan Assessment: Patient is doing well and denies any further subjective complaints. He is tolerating is eliquis well without any adverse effects. He was anticipated to be discharged to home today, however his echocardiogram is still pending; this must be done in hospital per Dr. Stark. He is to be discharged to home tomorrow with eliquis and norvasc pending his echocardiogram result and instruction to follow up with his body mechanic in about three weeks to have a stress test. Problem List: -RLE DVT/PE, on eliquis -IDDM -HTN -Hx of bone cancer s/p resection Plan: -Telemetry -Continue Eliquis -Norvasc started -F/U Echo tomorrow, DC pending results -Cardiology following -DVT PPx -FULL CODE -Outpatient stress test in three weeks Problem List: 1. HTN (hypertension) 2. Insulin dependent type 2 diabetes mellitus 3. Deep vein thrombosis (DVT) of right lower extremity 4. Pulmonary embolism 5. DVT (deep venous thrombosis) Pain Ratin Pain Location: None Pain Goal: Remain pain free Pain Plan: Mild pain pathway Tomorrow's Labs & Rationales: None patient for discharge GIRISH PAYTON,CAROLYN 11/21/16 1202: Attending MD Review Statement Attending Statement Attending Assessment/Plan: Patient seen and examined. Plan of care discussed with the medical team and the patient. Available lab work and radiology test reports were reviewed. Patient is feeling well and denies any coughing chest pain fever chills or hemoptysis. Complains of mild right leg pain and mild abdominal pain which appears to be chronic. His vital signs stable and exam shows clear lungs. Vital Signs Date Time Temp Pulse Resp B/P B/P Pulse O2 O2 Flow FiO2 Mean Ox Delivery Rate 11/21 1046 70 132/74 11/21 1045 70 132/74 11/21 1045 70 132/74 11/21 0828 97.6 70 18 132/74 93 Room Air 11/20 2254 98.4 73 16 158/70 93 Room Air 11/20 2247 72 138/68 11/20 1719 58 162/82 11/20 1703 99.2 58 16 162/82 94 Room Air Intake & Output 11/21 1600 11/21 0800 11/21 0000 Intake Total 600 375 Output Total Balance 600 375 Intake, Oral 600 375 No new labs done today Echogram shows normal EF and no pulmonary hypertension Assessment plan * Acute pulmonary embolism and right leg DVT- continue eliquis 10 mg twice a day and then switched to 5 mg twice a day in one week * Discharge home today
[2016-11-21 08:28] VITALS: BP 132/74
[2016-11-21 10:46] VITALS: BP 132/74
--- NOTE | 2016-11-21 10:52 | PN- Cardiology ---
Subjective Subjective: * No chest discomfort, shortness of breath, lightheadedness or palpitations. * sinus rhythm * echo shows a normal EF of 60% with normal pulmonary pressures, trace TR and mild MR Objective Vital Signs and I&Os Vital Signs Date Time Temp Pulse Resp B/P B/P Pulse O2 O2 Flow FiO2 Mean Ox Delivery Rate 11/21 1046 70 132/74 11/21 1045 70 132/74 11/21 1045 70 132/74 11/21 0828 97.6 70 18 132/74 93 Room Air 11/20 2254 98.4 73 16 158/70 93 Room Air 11/20 2247 72 138/68 11/20 1719 58 162/82 11/20 1703 99.2 58 16 162/82 94 Room Air Intake & Output 11/21 1600 11/21 0800 11/21 0000 11/20 1600 11/20 0800 11/20 0000 Intake Total 600 375 800 0 1072 Output Total Balance 600 375 800 0 1072 Intake, IV 272 Intake, Oral 600 375 800 0 800 Physical Exam: General: WD/ WN male in NAD; alert and oriented x 3 Neck: no JVD Heart: RRR with 2/6 systolic murmur Lungs: clear bilaterally Extremities: 2+ right lower extremity edema, no edema on the left Assessment/Plan Assessment/Plan * This patient appears to be tolerating his current dose of Eliquis at 10mg BID. This should be continued for a week before decreasing to 5mg BID. * BP is improved on Norvasc 10mg daily. Continue Losartan. * This patient should undergo a stress test in about three weeks to assess for ischemia. Okay for discharge with follow up in the office in one week. Continue telemetry? No
[2016-11-21] MEDS ORDERED: ELIQUIS5 M2 PO (11:26)
[2016-11-21] MEDS ORDERED: NORVASC10 M1 PO (11:26)
--- NOTE | 2016-11-21 15:00 | Discharge Summary ---
Visit Information Visit Dates Admission Date: 11/18/16 Discharge Date: 11/21/16 Hospital Course Course Attending Physician: BALJINDER HINDS MD Primary Care Physician: ABBEY CASAS MD Hospital Course: Mr. Cavanaugh is a 61 y/o M with PMHx of insulin-dependent T2DM, HTN and remote history of bone cancer s/p resection and bone graft placement (1961) who is sent in from PCP Dr. Abbey Casas's office for further evaluation and management of RLE DVT and PE. Vital signs on arrival afebrile 96.5, heart rate of 66, blood pressure 191/89 and saturating 97% on room air Physical examination: Seated comfortably on the bed not in acute distress cooperative oriented to time place and person He was admitted to telemetry floor and monitor for the following conditions. #Acute RLE DVT/PE: Extensive DVT extending from calf to the upper superficial femoral vein on RLE as revealed by doppler US (11/16). CTA Chest revealed pulmonary emboli within segmental and subsegmental branches of left upper and lower lobes (11/18). 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 No personal or family history of clots, recent long- distance travel or surgery. Patient took Xeralto for 2 days, reported adverse effects with it. Troponins were initially elevated which were trending down, an echocardiogram was obtained to evaluate for the right heart strain. Patient remained hemodynamically stable. He was started on IV heparin, which was switched to Eliquis. Was seen by hematology, cardiology, vascular surgery, recommendation of intervention were made during hospital stay, patient was advised to follow-up with vascular surgery and cardiology within 1 week. * Patient advised to take Eliquis as instructed, report to primary care physician with any side effects. * Hypercoagulability workup has been ordered by primary care physician, patient advised to follow-up with primary care physician upon discharge. * Patient advised to follow-up with cardiology in 1 week to discuss echo report. * Patient advised to follow-up with hematology in one week to discuss hypercoagulablility workup #Insulin-dependent T2DM: * Accu-checks and sliding scale medium-dose Novolog TIDAC/QHS, along with Levemir #HTN: Continued on labetalol 200 mg PO BID and HCTZ 25 mg PO daily. Diet: Consistent Carbohydrate 3 DVT PPx: With IV heparin transition to Eliquis Patient is full code Complications: none Allergies: Coded Allergies: No Known Allergies (11/16/16) Disposition Summary Disposition Principal Diagnosis: Deep vein thrombosis Pulmonary embolism Additional Diagnosis: Hypertension Diabetes mellitus Discharge Disposition: home or self care Discharge Instructions General Discharge Information Code Status: Full Code Patient's Diet: Heart healthy Patient's Activity: As tolerated Follow-Up Instructions/Appts: Patient advised to schedule a follow-up appointment with your primary care physician, dry chain puller, and vascular surgery within 1 week. Medications at Discharge Discharge Medications: Stop taking the following medications: Rivaroxaban (Xarelto) 15 MG TABLET ORAL TWICE DAILY Qty = 42 Rivaroxaban (Xarelto) 20 MG TABLET ORAL Every night Qty = 30 Continue taking these medications: Insulin Glargine,Hum.rec.anlog (Lantus Solostar) 100 UNIT/ML (3 ML) INSULN.PEN 52 Units Inject into fatty tissue Every night Qty = 45 Comments: Last Taken: 11/21/12 Time: 11:00 PM Insulin Lispro (Humalog Kwikpen U-100) 100 UNIT/ML INSULN.PEN Units Inject into fatty tissue BEFORE MEALS AND AT BEDTIME Qty = 15 Comments: Last Taken: 11/21/16 Time: 8:00 AM NOVOLOG GIVEN Valsartan/Hydrochlorothiazide (Valsartan-Hctz 320-25 MG Tab) 320 MG-25 MG TABLET 1 Tablet ORAL DAILY Qty = 90 Comments: Last Taken: 11/11/16 Time: 10:45 AM Labetalol HCl (Labetalol HCl) 200 MG TABLET 1 Tablet ORAL TWICE DAILY Qty = 60 Comments: Last Taken: 11/21/16 Time: 10:45 AM Start taking the following new medications: Apixaban (Eliquis) 5 MG TABLET 1 Tablet ORAL SEE INSTRUCTIONS Qty = 90 No Refills Instructions: SEE DISCHARGE INSTRUCTIONS Comments: PLEASE TAKE 2 PILLS (10 MG ) TWICE DAILY FOR 5 DAYS , THEN START TAKING 1 PILL (5 MG ) TWICE DAILY. Last Taken: 11/21/16 Time: 10:45 AM Amlodipine Besylate (Norvasc) 10 MG TABLET 10 Milligram ORAL DAILY Qty = 30 No Refills Comments: Last Taken: 11/21/16 Time: 10:45 AM Copies To: LIZET PAYTON,BALJINDER Dickey; AUGUSTO PAYTON,ABBEY Zelaya; WILFRIDO PAYTON,EYAL MARISCAL; GAL PAYTON, MIKE
--- NOTE | 2016-11-22 10:14 | ECHOCARDIOGRAM REPORT ---
ELE LEIGH Age: 61 : 1955 Gender: M Exam Date: 11/21/2016 09:05 Exam Location: 1 [address] Ht (in): 72 Wt (lb): 222 BSA: 2.29 BP: 158 / 70 Ordering Physician: SHANEL MYLES MD Referring Physician: Juan Mccoy MD Chief, SoC Technologist: Margarita Bishop [facility] Room Number: 183 Indications: HYPERTENSION, PULMONARY EMBOLISM Rhythm: Sinus Technical Quality: Good FINDINGS Left Ventricle Normal size left ventricle. Mild concentric left ventricular hypertrophy. Normal left ventricular ejection fraction visually estimated at >65 %. No obvious regional wall motion abnormalities. Normal left ventricular diastolic filling pattern for age. Right Ventricle The right ventricle is normal in size and function. Right Atrium The right atrium is normal in size. Left Atrium Mild to moderate left atrial dilatation. Mitral Valve Mild thickening/calcification of the mitral valve leaflets. Mild mitral annular calcification. Mild mitral regurgitation. Aortic Valve Diffuse thickening of the aortic valve cusps with mildly reduced excursion. Very mild aortic stenosis. No aortic regurgitation. Tricuspid Valve The tricuspid valve is normal in structure and function. There is trace tricuspid regurgitation. Pulmonary artery systolic pressure is normal. Pulmonic Valve Structurally normal pulmonic valve. There is no pulmonic regurgitation. Pericardium Normal pericardium without effusion. No pleural effusion. Great Vessels Normal aortic root dimension. The aortic arch and great vessels are well seen and are normal. CONCLUSIONS Mild concentric left ventricular hypertrophy. No obvious regional wall motion abnormalities. Normal left ventricular ejection fraction visually estimated at >65 Mild to moderate left atrial dilatation. Mild thickening/calcification of the mitral valve leaflets. Mild mitral annular calcification. Mild mitral regurgitation. Diffuse thickening of the aortic valve cusps with mildly reduced excursion. Very mild aortic stenosis. No aortic regurgitation. Pulmonary artery systolic pressure is normal. Juan Mccoy M.D. (Electronically Signed) Final Date: 22 November 2016 10:13 MEASUREMENTS (Male / Female) Normal Values 2D ECHO LV Diastolic Diameter PLAX 4.7 cm 4.2 - 5.9 / 3.9 - 5.3 cm LV Systolic Diameter PLAX 2.3 cm 2.1 - 4.0 cm LV Fractional Shortening PLAX 51.1 % 25 - 46 % LV Ejection Fraction 2D Teich 82.3 % IVS Diastolic Thickness 1.2 cm LVPW Diastolic Thickness 1.2 cm LV Relative Wall Thickness 0.5 RV Internal Dim ED PLAX 3.7 cm 1.9 - 3.8 cm LVOT Diameter 2.2 cm Aortic Root Diameter 3.3 cm LA Systolic Diameter LX 4.6 cm 3.0 - 4.0 / 2.7 - 3.8 cm LA Volume 83.0 cm 18 - 58 / 22 - 52 cm Ascending Aorta Diameter 3.2 cm DOPPLER AV Peak Velocity 210.0 cm/s AV Peak Gradient 17.6 mmHg AV Mean Velocity 142.0 cm/s AV Mean Gradient 9.0 mmHg AV Velocity Time Integral 43.7 cm LVOT Peak Velocity 127.0 cm/s LVOT Peak Gradient 6.5 mmHg LVOT Mean Velocity 87.4 cm/s LVOT Mean Gradient 3.0 mmHg LVOT Velocity Time Integral 29.6 cm LVOT Stroke Volume 112.5 cm AV Area Cont Eq vti 2.6 cm AV Area Cont Eq pk 2.3 cm MV Peak Velocity 93.1 cm/s MV Peak Gradient 3.5 mmHg MV Mean Velocity 55.8 cm/s MV Mean Gradient 1.0 mmHg Mitral E Point Velocity 81.9 cm/s Mitral A Point Velocity 69.1 cm/s Mitral E to A Ratio 1.2 MV PHT Velocity 97.1 cm/s MV Deceleration Mcintosh 429.0 cm/s MV Pressure Half Time 67.9 ms MV Area PHT 3.2 cm MV Deceleration Time 240.0 ms TR Peak Velocity 152.0 cm/s TR Peak Gradient 9.2 mmHg Right Atrial Pressure 5.0 mmHg Pulmonary Artery Systolic Pressu 14.2 mmHg Right Ventricular Systolic Press 14.2 mmHg PV Peak Velocity 101.0 cm/s PV Peak Gradient 4.1 mmHg PV Mean Velocity 70.2 cm/s PV Mean Gradient 2.0 mmHg PV Velocity Time Integral 23.9 cm LV E' Lateral Velocity 8.7 cm/s Mitral E to LV E' Lateral Ratio 9.4 LV E' Septal Velocity 8.9 cm/s Mitral E to LV E' Septal Ratio 9.2
[2016-11-23 20:44] LABS: HEXAGONAL PHASE CONFIRM NEGATIVE (NEGATIVE); PTT LA SCREEN 52 sec (< OR = 40)
== END 2016-11-21 13:45 | DRG 176 ==
LOC: ERH 19:02 → ERHI 22:36 → 1NO 22:36 → ENRESERV 22:50 → 1NO 11-19 01:51 → ENPENDDIS 11-21 11:27 → 1NO 11-21 13:45
PROVIDERS: Internal Medicine; Ophthalmology; Physician Assistant Medical; Preventive Medicine Public Health & General Preventive Medicine; Student in an Organized Health Care Education/Training Program; ADMIT Student in an Organized Health Care Education/Training Program
DX: I26.99 Other pulmonary embolism without acute cor pulmonale (principal); I24.8 Other forms of acute ischemic heart disease; I82.4Z1 Acute embolism and thrombosis of unspecified deep veins of right distal lower extremity; E11.9 Type 2 diabetes mellitus without complications; Z79.4 Long term (current) use of insulin; I10 Essential (primary) hypertension; Z85.830 Personal history of malignant neoplasm of bone; E78.5 Hyperlipidemia, unspecified
CPT/HCPCS: 1NP; 85613; 85730; ERO; 36415; 82436; 85301; 85306; 93005; 93010; 93306; 96372; 96374; 99291; J1644; J3490

== ENCOUNTER 2017-07-04 17:11 | Inpatient (IN) | payer OTHER ==
[~2017-07-04] VITALS: Ht 188 cm; Wt 102.1 kg
[~2017-07-04 17:11] MED LIST changes: +ELIQUIS5 M2 PO; +NORVASC10 M1 PO
--- NOTE | 2017-07-04 18:02 | CT SCAN REPORT ---
EXAMINATION: CT HEAD WITHOUT CONTRAST CLINICAL INFORMATION: Headache. Slurred speech. COMPARISON: None. TECHNIQUE: Contiguous axial imaging was performed from the skull base to vertex without intravenous contrast. DLP: 619 mGy-cm. FINDINGS: There is no evidence of acute intracranial hemorrhage or territorial infarction. No abnormal mass effect or midline shift is seen. Porter to white matter differentiation is well preserved. No extra-axial fluid collections are identified. No hydrocephalus. Cavum septum lucidum and vergae. Proportional prominence of the ventricles and sulcal spaces is consistent with mild volume loss. Patchy periventricular and deep white matter hypoattenuation is consistent with mild small vessel ischemic changes. The osseous structures and soft tissues are normal. The mastoid air cells and visualized portions of the paranasal sinuses are well aerated. IMPRESSION: No acute intracranial pathology. Mild volume loss with small vessel ischemic changes.
--- NOTE | 2017-07-04 18:23 | ED GENERAL ADULT ---
See Addendum History of Present Illness General Chief Complaint: Headache Stated Complaint: SEVERE REYES SINCE THIS AM, SLURRING SPEACH PER Source: patient Exam Limitations: no limitations Vital Signs & Intake/Output Vital Signs & Intake/Output Vital Signs Date Time Temp Pulse Resp B/P B/P Pulse O2 O2 Flow FiO2 Mean Ox Delivery Rate 07/04 2099 97.9 73 16 162/77 97 Room Air 07/04 1956 69 161/79 07/04 1949 63 203/98 07/04 1924 Room Air 07/04 1907 230/112 07/04 1858 64 18 206/97 95 Room Air 07/04 1841 98.0 78 18 222/101 07/04 1840 65 18 230/112 96 Room Air 07/04 1754 98.3 80 16 217/109 98 Room Air Room Air Allergies Coded Allergies: No Known Allergies (07/04/17) Reconcile Medications Amlodipine Besylate (Norvasc) 10 MG TABLET 10 MG PO DAILY HYPERTENSION Apixaban (Eliquis) 5 MG TABLET 1 TAB PO SEE ADMIN CRITERIA PE SEE DISCHARGE INSTRUCTIONS Insulin Glargine,Hum.rec.anlog (Lantus Solostar) 100 UNIT/ML (3 ML) INSULN.PEN 52 UNITS SC QPM DM (Reported) Insulin Lispro (Humalog Kwikpen U-100) 100 UNIT/ML INSULN.PEN DM (Reported) Labetalol HCl 200 MG TABLET 1 TAB PO BID HEART/BP (Reported) Valsartan/Hydrochlorothiazide (Valsartan-Hctz 320-25 MG Tab) 320 MG-25 MG TABLET 1 TAB PO DAILY BP (Reported) Triage Note: PT TO TRIAGE FOR FEELING LIGHTHEADED STARTING THIS MORNING AND HAVING A NEAR SYNCOPAL EPISODE. PT DECIDED TO LAYDOWN AT 1600 AND WHEN HE WOKE HE HAD PAIN TO LEFT EYE EAR AND NECK, HE FELT LIKE HIS SPEECH WAS SLURRED. PT DENIES CHEST PAIN, DENIES SOB, HE IS ALERT AND ORIENTED AND HAD NO DEFICITS NOTED. SPEECH IS CLEAR AND HE FACE IS SYMETRICAL Triage Nurses Notes Reviewed? yes Onset: Abrupt Duration: day(s): (1), constant, continues in ED, getting worse Timing: single episode today Injury Environment: home Severity: moderate, severe Severity Numbers: 8 No Modifying Factors: none HPI: 61-year-old male past medical history of hypertension, hyperlipidemia, seizure disorder, DVT NOW on Eliquis presents for evaluation of headache. Patient states that when he woke up today he felt very dizzy and lightheaded. He states that he laid down for a nap and when he woke up he had a severe headache. The pain is located behind the left eye and radiates behind his ear into his neck. He describes the pain as throbbing and pressure. he's never had this before. No history of previous headaches. The headache is made worse by bright lights. No nausea or vomiting. No fever or rashes. He also reports intermittent chest pressure radiating to his back. The pain is present mostly at night and has been there for several days. He's never had this before. There are no alleviating or aggravating factors. No shortness of breath, hemoptysis, lower extremity edema. He states that he is compliant with all of his medications he does not drink smoke or use any drugs. aDDITIONALLY PT IS REPORTING SWELLING IN HIS RT TESTICLE THAT WAS BEEN PRESETN THE past few days. no pain or urinary symptoms. no discharge. (Fran Aviles) Past History Travel History Traveled to [place] past 21 day No Medical History Any Pertinent Medical History? see below for history Neurological: seizure EENT: NONE Cardiovascular: hypertension, hyperlipidemia Respiratory: NONE Gastrointestinal: abdominal pain with fluid collection in the paracolic gutter Hepatic: NONE Renal: NONE Musculoskeletal: NONE Psychiatric: NONE Endocrine: insulin-dependent T2DM Blood Disorders: DVT, PE Cancer(s): bone cancer of right lower leg (1961) History of MRSA: No History of VRE: No History of CDIFF: No Surgical History Surgical History: excision of left neck soft tissue mass hernia repair x2 (most recent one in March 2016) resection of right lower leg bone cancer (1961) and bone graft placement TURP Psychosocial History Who do you live with Spouse Services at Home None What is your primary language Bengali Tobacco Use: Never used ETOH Use: denies use Illicit Drug Use: denies illicit drug use Family History Family History, If Any: PATERNAL GRANDMOTHER FH: diabetes mellitus Hx Contributory? No (Fran Aviles) Review of Systems Review of Systems Constitutional: Reports: no symptoms. EENTM: Reports: no symptoms. Respiratory: Reports: no symptoms. Cardiovascular: Reports: see HPI, chest pain. GI: Reports: no symptoms. Genitourinary: Reports: no symptoms. Musculoskeletal: Reports: see HPI, back pain. Skin: Reports: no symptoms. Neurological/Psychological: Reports: headache. Hematologic/Endocrine: Reports: no symptoms. Immunologic/Allergic: Reports: no symptoms. All Other Systems: Reviewed and Negative (Fran Aviles) Physical Exam Physical Exam General Appearance: well developed/nourished, no apparent distress, alert, awake Head: atraumatic, normal appearance Eyes: Bilateral: normal appearance, PERRL, EOMI. Ears, Nose, Throat: normal pharynx, normal ENT inspection, hearing grossly normal Neck: normal inspection, supple, full range of motion, NO JVD Respiratory: normal breath sounds, chest non-tender, no respiratory distress, lungs clear Cardiovascular: regular rate/rhythm, normal peripheral pulses Peripheral Pulses: 2+ radial (R), 2+ radial (L) Gastrointestinal: normal bowel sounds, soft, non-tender, no organomegaly Back: normal inspection, normal range of motion, no vertebral tenderness Extremities: normal inspection, normal range of motion, no edema Neurologic/Psych: no motor/sensory deficits, awake, alert, oriented x 3 Skin: intact, normal color, warm/dry Core Measures ACS in differential dx? No CVA/TIA Diagnosis: No Sepsis Present: No Sepsis Focused Exam Completed? No (Fran Aviles) Progress Differential Diagnoses I considered the following diagnoses in my evaluation of the patient: [ Hypertensive urgency, hypertensive emergency, acute coronary syndrome, aortic dissection, pulmonary embolism, CVA, migraine headache, cluster headache, intracranial hemorrhage, intracranial mass, temporal arteritis] Plan of Care: Orders Procedure Date/time Status Heart Healthy Diet 07/05 B Active Patient Data 07/04 2114 Active ED Holding Orders 07/04 2035 Active Admit to inpatient 07/04 2035 Active Vital Signs 07/04 2035 Active Code Status 07/04 2035 Active [id number] DOPPLER 07/04 193 Active Intake & Output 07/04 1900 Active PARTIAL THROMBOPLASTIN TIME 07/04 1840 Complete PROTHROMBIN TIME 07/04 1840 Complete Add-on Test (ER Only) 07/04 1827 Active WESTERGREN SED RATE 07/04 1827 Active Add-on Test (ER Only) 07/04 1823 Active URINALYSIS 07/04 1823 Active C-REACTIVE PROTEIN 07/04 1804 Complete B-TYPE NATRIURETIC PEP (BNP) 07/04 1803 Complete Telemetry/Trekking Guide 07/04 1800 Active TROPONIN LEVEL 07/04 175 Complete COMPREHENSIVE METABOLIC PANEL 07/04 175 Complete CBC WITHOUT DIFFERENTIAL 07/04 175 Complete FingerStick- Glucose 07/04 1756 Active EKG 07/04 174 Active Laboratory Tests 07/04/172052: PT 14.6 H, INR 1.40 H, APTT 34, ESR Westergren Pending 07/04/171803: Anion Gap 12, Estimated GFR 47 L, BUN/Creatinine Ratio 22.7, Glucose 209 H, Calcium 8.8, Total Bilirubin 0.3, AST 25, ALT 31, Alkaline Phosphatase 63, Troponin I < 0.01, C-Reactive Prot, Quant < 0.5, Oqk-K-Ywywubcbvqv Pept 225 H, Total Protein 6.0 L, Albumin 3.3 L, Globulin 2.7, Albumin/Globulin Ratio 1.2, CBC w Diff NO MAN DIFF REQ, RBC 4.49 L, MCV 92.7, MCH 31.1 H, RDW 12.9, MPV 7.5, Gran % 73.4, Lymphocytes % 13.7 L, Monocytes % 9.8 H, Eosinophils % 2.6, Basophils % 0.5, Absolute Granulocytes 6.1, Absolute Lymphocytes 1.1 L, Absolute Monocytes 0.8 H, Absolute Eosinophils 0.2, Absolute Basophils 0, PUBS MCHC 33.5 Patient seen and evaluated. He currently is neurologically intact. He is very hypertensive to 220s over 100s. He is compliant with his meds. He is also reporting chest pain radiating to the back. Patient was initially medicated with Nitropaste, IV morphine and IV Vasotec. He reported slight improvement in his headache but his blood pressure did not come down. Patient required a second dose of IV morphine and IV hydralazine and his blood pressure came down to the 160s over 90s. Patient's creatinine is elevated to 1.5 which is normal for him. A noncontrast CT scan was ordered to evaluate his aorta which did not show any evidence of dissection. Patient likely will require a contrast CTA to completely rule out dissection however he will require IV fluids for this intervention not be done until his blood pressure is stabilized. Additionally ultrasound ordered of the carotids to rule out a carotid dissection. Patient will require admission to the hospital for further evaluation and treatment. He 'll need cardiology consult, neurology consult, MRI, CTA, serial EKGs, serial cardiac enzymes, monitoring of vital signs, IV blood pressure control, IV pain control. Diagnostic Imaging: Viewed by Me: CT Scan. Discussed w/RAD: CT Scan. Radiology Impression: PATIENT: ELE LEIGH PRESENT AGE: 61 PATIENT ACCOUNT NO: [id number] : 53 LOCATION: [facility] ORDERING PHYSICIAN: Fran ALVARADO SERVICE DATE: 07/04/17 EXAM TYPE: CAT - CT HEAD WO IV CONTRAST EXAMINATION: CT HEAD WITHOUT CONTRAST CLINICAL INFORMATION: Headache. Slurred speech. COMPARISON: None. TECHNIQUE: Contiguous axial imaging was performed from the skull base to vertex without intravenous contrast. DLP: 619 mGy-cm. FINDINGS: There is no evidence of acute intracranial hemorrhage or territorial infarction. No abnormal mass effect or midline shift is seen. Porter to white matter differentiation is well preserved. No extra-axial fluid collections are identified. No hydrocephalus. Cavum septum lucidum and vergae. Proportional prominence of the ventricles and sulcal spaces is consistent with mild volume loss. Patchy periventricular and deep white matter hypoattenuation is consistent with mild small vessel ischemic changes. The osseous structures and soft tissues are normal. The mastoid air cells and visualized portions of the paranasal sinuses are well aerated. IMPRESSION: No acute intracranial pathology. Mild volume loss with small vessel ischemic changes. DICTATED BY: Jeff Almazan MD DATE/TIME DICTATED:07/04/171754 INVESTIGATOR WELFARE:DIVYA DATE/TIME TRANSCRIBED:07/04/171754 CONFIDENTIAL, DO NOT COPY WITHOUT APPROPRIATE AUTHORIZATION. <Electronically signed in Other Vendor System> SIGNED BY: Norah PAYTON,Jeff 07/04/171801, PATIENT: ELE LEIGH PRESENT AGE: 61 PATIENT ACCOUNT NO: [id number] : 51 LOCATION: [facility] ORDERING PHYSICIAN: Fran ALVARADO SERVICE DATE: 07/04/17 EXAM TYPE: CAT - CT CHEST WO IV CONTRAST EXAMINATION : CT CHEST WITHOUT CONTRAST CLINICAL INFORMATION: Chest pain. Hypertension. COMPARISON: Same day chest radiograph. TECHNIQUE: Contiguous axial thin section helical images of the chest were performed without contrast. The data set was reformatted in the coronal and sagittal planes and reviewed on an independent workstation. DLP: 321 mGy-cm. FINDINGS: The heart is of normal size. There is no pericardial effusion. There is neither mediastinal, hilar nor axillary lymphadenopathy. There are no chest wall masses. Review of lung windows demonstrates that there are neither pleural effusions nor pneumothoraces. There are no consolidations. There is mild dependent bibasilar atelectasis. There are no pulmonary parenchymal nodules. Images of the upper abdomen demonstrate that the liver is of normal size and attenuation without focal lesions. Normal adrenal glands are identified. Bone windows: Neither sclerotic nor lytic bone lesions are identified. IMPRESSION: No evidence for acute intrathoracic injury. Mild bibasilar atelectasis. No consolidations. Normal mediastinum. No thoracic aneurysm demonstrable. DICTATED BY: Mannie Hill MD DATE/TIME DICTATED:2011 INVESTIGATOR WELFARE:DIVYA DATE/TIME TRANSCRIBED:07/04/172011 CONFIDENTIAL, DO NOT COPY WITHOUT APPROPRIATE AUTHORIZATION. CXR Impression: PATIENT: ELE LEIGH PRESENT AGE: 61 PATIENT ACCOUNT NO: [id number] : 53 LOCATION: [facility] ORDERING PHYSICIAN: Fran ALVARADO SERVICE DATE: 07/04/17 EXAM TYPE: RAD - XRY-PORTABLE CHEST XRAY EXAMINATION: CHEST 1 VIEW CLINICAL INFORMATION: Hypertension. COMPARISON: 11/18/2016. TECHNIQUE: An AP view of the chest is provided. FINDINGS : The cardiac silhouette is stable. The mediastinal and hilar contours are unremarkable. There are neither pleural effusions nor pneumothoraces. There are no consolidations. The osseous structures are unremarkable. IMPRESSION: No evidence for acute disease. DICTATED BY: Mannie Hill MD DATE/TIME DICTATED:1857 INVESTIGATOR WELFARE:DIVYA DATE/TIME TRANSCRIBED:07/04/171857 CONFIDENTIAL, DO NOT COPY WITHOUT APPROPRIATE AUTHORIZATION. Initial ED EKG: normal sinus rhythm, LVH (Fran Aviles) Departure Departure Disposition: STILL A PATIENT Condition: Stable Clinical Impression Primary Impression: Hypertensive urgency Referrals: Kory Owens MD (PCP/Family) Departure Forms: Customer Survey General Discharge Information Admission Note Spoke With: Amna Chase MD Documentation of Exam: Documentation of any treatments & extenuating circumstances including Concerns Regarding Discharge (functional status, medication knowledge or non-compliance, living conditions, etc.) that warrant an admission rather than observation: [ Patient will require admission to the hospital for further evaluation and treatment. He'll need cardiology consult, neurology consult, MRI, CTA, serial EKGs, serial cardiac enzymes, monitoring of vital signs, IV blood pressure control, IV pain control.] (Fran Aviles) PA/PRINTED [employer]AR[employer]IP[employer] ETCHER Co-Sign Statement Statement: ED Attending supervision documentation- [X] I saw and evaluated the patient. I have also reviewed all the pertinent lab results and diagnostic results. I agree with the findings and the plan of care as documented in the PA's/PRINTED [employer]IP[employer] ETCHER's documentation. [X] I have reviewed the ED Record and agree with the PA's/PRINTED [employer] ETCHER's documentation. [] Additions or exceptions (if any) to the PAs/PRINTED [employer] ETCHER's note and plan are summarized below: [Intractable headache in the setting of hypertension urgency. CT of his head as well as chest are negative. His blood pressures coming down with IV hydralazine. Patient will require admission with cardiology consultation as well as neurological consultation. Check blood pressure control, telemetry monitoring, serial enzymes.] (Az PAYTON,Home Luis) Critical Care Note Critical Care Note Critical Care Time: non-applicable (Fran Aviles) (Az PAYTON,Home Luis) Critical Care Note Critical Care Note Critical Care Time: non-applicable (Fran Aviles)
[2017-07-04 18:35] LABS: ABSOLUTE BASOPHIL COUNT 0 /CUMM (0.0-0.2); ABSOLUTE EOSINOPHIL COUNT 0.2 /CUMM (0.0-0.7); ABSOLUTE GRANULOCYTE CT 6.1 /CUMM (1.4-6.5); ABSOLUTE LYMPH COUNT 1.1 /CUMM (1.2-3.4); ABSOLUTE MONOCYTE COUNT 0.8 /CUMM (0.10-0.60); BASOPHIL % 0.5 % (0.0-2.0); EOSINOPHIL % 2.6 % (0-5); GRANULOCYTE % 73.4 % (42.2-75.2); HEMATOCRIT 41.6 % (42-52); MEAN CORPUSCULAR HGB 31.1 PG (27.0-31.0); MEAN CORPUSCULAR HGB CONC 33.5 G/DL (33.0-37.0); MEAN CORPUSCULAR VOLUME 92.7 FL (80.0-94.0); MEAN PLATELET VOLUME 7.5 FL (7.4-10.4); PLATELET COUNT 284 /CUMM (130-400); RBC DISTRIBUTION WIDTH 12.9 % (11.5-14.5); RED BLOOD CELL CT 4.49 /CUMM (4.70-6.10); WHITE BLOOD CELL COUNT 8.3 /CUMM (4.8-10.8)
--- NOTE | 2017-07-04 19:02 | RADIOLOGY REPORT ---
EXAMINATION: CHEST 1 VIEW CLINICAL INFORMATION: Hypertension. COMPARISON: 11/18/2016. TECHNIQUE: An AP view of the chest is provided. FINDINGS: The cardiac silhouette is stable. The mediastinal and hilar contours are unremarkable. There are neither pleural effusions nor pneumothoraces. There are no consolidations. The osseous structures are unremarkable. IMPRESSION: No evidence for acute disease.
--- NOTE | 2017-07-04 20:18 | CT SCAN REPORT ---
EXAMINATION: CT CHEST WITHOUT CONTRAST CLINICAL INFORMATION: Chest pain. Hypertension. COMPARISON: Same day chest radiograph. TECHNIQUE: Contiguous axial thin section helical images of the chest were performed without contrast. The data set was reformatted in the coronal and sagittal planes and reviewed on an independent workstation. DLP: 321 mGy-cm. FINDINGS: The heart is of normal size. There is no pericardial effusion. There is neither mediastinal, hilar nor axillary lymphadenopathy. There are no chest wall masses. Review of lung windows demonstrates that there are neither pleural effusions nor pneumothoraces. There are no consolidations. There is mild dependent bibasilar atelectasis. There are no pulmonary parenchymal nodules. Images of the upper abdomen demonstrate that the liver is of normal size and attenuation without focal lesions. Normal adrenal glands are identified. Bone windows: Neither sclerotic nor lytic bone lesions are identified. IMPRESSION: No evidence for acute intrathoracic injury. Mild bibasilar atelectasis. No consolidations. Normal mediastinum. No thoracic aneurysm demonstrable.
--- NOTE | 2017-07-04 21:00 | ULTRASOUND REPORT ---
EXAMINATION: US SCROTUM CLINICAL INFORMATION: Right testicular swelling. COMPARISON: None TECHNIQUE: A sonogram of the scrotum was performed assessing vega-scale appearance and color Doppler flow. Spectral analysis and Doppler interrogation was performed. FINDINGS: RIGHT: Right testicle measures 3.2 x 3.3 x 3.1 cm, volume 23.2 mL. Parenchymal echotexture is normal. No focal testicular parenchymal lesions are visualized. Normal symmetric intratesticular flow is visualized. Right epididymal head is now well evaluated. In the region of the epididymal head there is a complex loculation of fluid measuring 6 x 3.8 x 5.7 cm. No varicocele is seen. LEFT: Left testicle measures 0.7 x 2.5 x 2.6 cm, volume 1.7 mL. Parenchymal echotexture is normal. No focal testicular parenchymal lesions are visualized. Normal symmetric intratesticular flow is visualized. Left epididymal head is normal in size. No left hydrocele or varicocele is seen. IMPRESSION: Complex loculation of fluid in the region of the right epididymal head measuring up to 6 cm which favors an epididymal head cyst, although loculated hydrocele is possible. No testicular torsion.
[2017-07-04 21:18] LABS: PT 14.6 SEC (9.4-12.5); PTT 34 SEC (25-37)
--- NOTE | 2017-07-04 22:07 | ULTRASOUND REPORT ---
EXAMINATION: BILATERAL DUPLEX CAROTID ULTRASOUND CLINICAL INDICATION: 61 y.o male with PMHx of DM \T\ hypertension who felt faint getting out of truck this morning followed by transient aphasia, syncope, \T\ memory loss. Now with headache behind left eye radiating into ear and neck. COMPARISON: Head CT today. TECHNIQUE: Real-time ultrasound and Doppler techniques (integrating B-mode 2D vascular images, Doppler spectral analysis and color flow Doppler imaging) were utilized to interrogate the extracranial carotid and vertebral arteries bilaterally. The degree of stenosis was assessed by criteria similar to NASCET. FINDINGS: On the RIGHT, there is no significant plaque or dissection present at the carotid bifurcation. In the distal CCA, the peak systolic velocity is 88 cm/sec. In the proximal ICA, the peak systolic velocity is 64 cm/sec, and the end diastolic velocity is 19 cm/sec. In the proximal ECA, the peak systolic velocity is 141 cm/sec. On the LEFT, there is no significant plaque or dissection present at the carotid bifurcation. In the distal CCA, the peak systolic velocity is 127 cm/sec. In the proximal ICA, the peak systolic velocity is 101 cm/sec, and the end diastolic velocity is 26 cm/sec. In the proximal ECA, the peak systolic velocity is 155 cm/sec. The vertebral arteries show antegrade flow with normal waveforms bilaterally. IMPRESSION: 1. The right internal carotid artery shows no hemodynamically significant (0-49%) stenosis or dissection. 2. The left internal carotid artery shows no hemodynamically significant (0-49%) stenosis or dissection.
--- NOTE | 2017-07-05 00:24 | History & Physical ---
Alia PAYTON,[facility] 07/05/17 0023: General Information and HPI MD Statement: I have seen and personally examined ELE CAVANAUGH and documented this H&P. The patient is a 61 year old M who presented with a patient stated chief complaint of [left eye and neck pain]. Source of Information: patient, family Exam Limitations: no limitations History of Present Illness: Mr. Cavanaugh is a 61-year-old gentleman with past medical history significant for hypertension, hyperlipidemia, ?? seizure disorder, DVT and PE on Eliquis(November 2016), diabetes and bone cancer (right lower leg 1961) presents with left eye and neck pain which started today around 4 PM. Patient's was in the room and provided the history as well. According to the patient, he went to see his mother this morning but as he stepped out of his truck he felt lightheaded, and felt like he was going to pass out but denies any loss of consciousness. Try to take a nap after returning home couldn't sleep because of pain in his left eye. Around 4 PM, he had intense left eye pain radiating to his left ear and down his neck, states it was the worst pain of his life. also noticed slurred speech since morning. Patient also reports chest pain radiating to his back x 1 wk, but thinks the pain is musculoskeletal as he has been lifting wood for the past 1 week. Patient was started on amoxicillin(Day 7/10) for sinus infection by his primary care physician a week ago, he has also been using the saline nasal spray, denies any change in medications. At that time he was also found to be hypertensive with systolic blood pressure 160s. Patient also complains of right scrotal swelling that he noticed 1 week ago was taking shower. Denies any testicular pain/burning or urinary symptoms. Denies any shortness of breath, palpitations, cough, sputum production, orthopnea, or fever/chills. Allergies/Medications Allergies: Coded Allergies: No Known Allergies (07/04/17) Home Med list Apixaban (Eliquis) 5 MG TABLET 1 TAB PO SEE ADMIN CRITERIA PE SEE DISCHARGE INSTRUCTIONS Insulin Glargine,Hum.rec.anlog (Lantus Solostar) 100 UNIT/ML (3 ML) INSULN.PEN 52 UNITS SC QPM DM (Reported) Insulin Lispro (Humalog Kwikpen U-100) 100 UNIT/ML INSULN.PEN DM (Reported) Labetalol HCl 200 MG TABLET 1 TAB PO BID HEART/BP (Reported) Valsartan/Hydrochlorothiazide (Valsartan-Hctz 320-25 MG Tab) 320 MG-25 MG TABLET 1 TAB PO DAILY BP (Reported) Past History Travel History Traveled to [place] past 21 day No Medical History Neurological: seizure EENT: NONE Cardiovascular: hypertension, hyperlipidemia Respiratory: NONE Gastrointestinal: abdominal pain with fluid collection in the paracolic gutter Hepatic: NONE Renal: NONE Musculoskeletal: NONE Psychiatric: NONE Endocrine: insulin-dependent T2DM Blood Disorders: DVT, PE Cancer(s): bone cancer of right lower leg (1961) History of MRSA: No History of VRE: No History of CDIFF: No Surgical History Surgical History: excision of left neck soft tissue mass hernia repair x2 (most recent one in March 2016) resection of right lower leg bone cancer (1961) and bone graft placement TURP Past Family/Social History Family History Relations & Conditions if any PATERNAL GRANDMOTHER FH: diabetes mellitus Psychosocial History Services at Home: None Primary Language: Vincentian Smoking Status: Never Smoked ETOH Use: denies use Illicit Drug Use: denies illicit drug use Functional Ability ADLs Independent: dressing, eating, toileting, bathing. Ambulation: independent IADLs Independent: shopping, housework, finances, food prep, telephone, transportation , medication admin. Review of Systems Review of Systems Constitutional: Reports: no symptoms. EENTM: Reports: visual changes, eye pain. Cardiovascular: Reports: chest pain. Respiratory: Reports: no symptoms. GI: Reports: no symptoms. Genitourinary: Reports: see HPI (testicular swelling). Musculoskeletal: Reports: no symptoms. Skin: Reports: no symptoms. Neurological/Psychological: Reports: no symptoms. Hematologic/Endocrine: Reports: no symptoms. Immunologic/Allergic: Reports: no symptoms. All Other Systems: Reviewed and Negative Exam & Diagnostic Data Last 24 Hrs of Vital Signs/I&O Vital Signs Date Time Temp Pulse Resp B/P B/P Pulse O2 O2 Flow FiO2 Mean Ox Delivery Rate 07/05 0043 98.3 81 18 144/70 94 Room Air 07/05 0011 97.0 80 20 150/73 97 Room Air 07/04 2314 97.9 81 19 136/67 96 Room Air 07/04 2100 97.9 73 16 162/77 97 Room Air 07/04 1957 69 161/79 07/04 1949 63 203/98 07/04 1924 Room Air 07/04 1907 230/112 07/04 1858 64 18 206/97 95 Room Air 07/04 1841 98.0 78 18 222/101 07/04 1840 65 18 230/112 96 Room Air 07/04 1754 98.3 80 16 217/109 98 Room Air Room Air Intake & Output 07/05 0800 07/05 0000 07/04 1600 Intake Total 110 Output Total 300 Balance 110 -300 Intake, IV 10 Intake, Oral 100 Output, Urine 300 Weight Reported by Patient Measurement Method Physical Exam General Appearance Alert, Oriented X3, Cooperative, No Acute Distress Skin No Rashes, No Breakdown HEENT Atraumatic, PERRLA, EOMI, Mucous Membr. moist/pink Neck Supple, No thryomegaly Cardiovascular Regular Rate, Normal S1, Normal S2, systolic murmur Lungs Clear to Auscultation, Normal Air Movement Abdomen Normal Bowel Sounds, Soft, No Tenderness Neurological Normal Speech, Strength at 5/5 X4 Ext, Normal Tone, Sensation Intact, Cranial Nerves 3-12 NL Extremities No Clubbing, No Cyanosis, Normal Pulses, trace pedal edema bilaterally Last 24 Hrs of Labs/Darinel: Laboratory Tests 07/05/17 0655: Troponin I Pending 07/05/17 0025: Urinalysis LIGHT H, Urine Color STRAW, Urine Clarity CLEAR, Urine pH 6.0, Ur Specific Liebenthal >= 1.030, Urine Protein >=300 H, Urine Ketones NEG, Urine Nitrite NEG, Urine Bilirubin NEG, Urine Urobilinogen 0.2, Ur Leukocyte Esterase NEG, Ur Microscopic SEDIMENT EXAMINED, Urine RBC 5-10 H, Urine WBC 3-5 H, Ur Epithelial Cells FEW, Urine Mucus FEW, Urine Hemoglobin MOD H, Urine Glucose >= 1000 H 07/04/172052: PT 14.6 H, INR 1.40 H, APTT 34, ESR Westergren 60 H 07/04/174: Anion Gap 12, Estimated GFR 47 L, BUN/Creatinine Ratio 22.7, Glucose 209 H, Hemoglobin A1c Pending, Calcium 8.8, Total Bilirubin 0.3, AST 25, ALT 31, Alkaline Phosphatase 63, Troponin I < 0.01, C-Reactive Prot, Quant < 0.5, Pro-B- Natriuretic Pept 225 H, Total Protein 6.0 L, Albumin 3.3 L, Globulin 2.7, Albumin/Globulin Ratio 1.2, CBC w Diff NO MAN DIFF REQ, RBC 4.49 L, MCV 92.7, MCH 31.1 H, RDW 12.9, MPV 7.5, Gran % 73.4, Lymphocytes % 13.7 L, Monocytes % 9.8 H, Eosinophils % 2.6, Basophils % 0.5, Absolute Granulocytes 6.1, Absolute Lymphocytes 1.1 L, Absolute Monocytes 0.8 H, Absolute Eosinophils 0.2, Absolute Basophils 0, PUBS MCHC 33.5 Diagnostic Data EKG Results NSR Heart rate 77 QTc 426 CXR Results IMPRESSION: No evidence for acute disease. Other Results CT HEAD WO IV CONTRAST IMPRESSION: No acute intracranial pathology. Mild volume loss with small vessel ischemic changes. [id number] DOPPLER IMPRESSION: 1. The right internal carotid artery shows no hemodynamically significant (0-49%) stenosis or dissection. 2. The left internal carotid artery shows no hemodynamically significant (0-49%) stenosis or dissection. CT CHEST WO IV CONTRAST IMPRESSION: No evidence for acute intrathoracic injury. Mild bibasilar atelectasis. No consolidations. Normal mediastinum. No thoracic aneurysm demonstrable. US-TESTICULAR IMPRESSION: Complex loculation of fluid in the region of the right epididymal head measuring up to 6 cm which favors an epididymal head cyst, although loculated hydrocele is possible. No testicular torsion. Assessment/Plan Assessment: Mr. Cavanaugh is a 61-year-old gentleman with past medical history significant for hypertension, hyperlipidemia, ?? seizure disorder, DVT and PE on Eliquis(November 2016), diabetes and bone cancer (right lower leg 1961) presents with left eye and neck pain which started today around 4 PM. A/P; 1. Hypertensive urgency/ R/O TIA; patient was found to have a blood pressure of 230/112 at the time of arrival. - Admit the patient to telemetry floor - Goal Systolic Blood Pressure between 140-150 - Resume labetalol and Valsartan in am - Neurochecks every 2 hours - Neuro consult - Carotid ultrasound showed vertebral arteries show antegrade flow with normal waveforms bilaterally. Will hold off CTA neck for now. If her neck or left. Pain recurs will do CTA head and neck. - Cardiology consultation - Serial Trops and EKG to rule out ACS - Echocardiogram 2. Testicular swelling - Shows complex loculation of fluid in region of right epididymal head upto 6 cm. - Urology consult 3. Sinus infection; - Patient was taking amoxicillin for sinus infection(7/10 days)- - continue amoxicillin to complete a 10 day course of antibiotics. 4. History of diabetes; - Hold oral hypoglycemic agents. - Continue Levemir and insulin sliding scale - Accu-Cheks 5. History of PE; - Continue Eliquis. DVT prophylaxis; patient is on Eliquis Patient is full code As Ranked By This Provider Problem List: 1. Hypertensive urgency 2. Pulmonary embolism Core Measures/Misc (02/27) Acute Coronary Syndrome ACS Diagnosis: No Congestive Heart Failure Congestive Heart Failure Diagnosis No Cerebrovascular Accident CVA/TIA Diagnosis: No VTE (View Protocol) VTE Risk Factors VTE (Previous) No Mechanical VTE Prophylaxis d/t N/A MechProphylax Ordered No VTE Pharm Prophylaxis d/t NA PharmProphylax ordered Sepsis (View protocol) Sepsis Present: No Salvatore PAYTON, [facility] 07/05/17 0611: Attending MD Review Statement Attending Statement Attending MD Statement: examined this patient, discuss w/resident/PA/HEAD OF ETHICS AND COMPLIANCE, agreed w/resident/PA/HEAD OF ETHICS AND COMPLIANCE, reviewed images, amended to note Attending Assessment/Plan: 61 yo M with h/o DM, HTN, bone cancer RLE s/p resection and iliac bone graft ( 1961), RLE DVT/ PE on Eliquis, seizure d/o (not on meds, being followed by Neuro ), CKD stage 3, is brought in for evaluation of headache, left eye and neck pain. Patient reports being diagnosed with sinus infection in the past week, was prescribed amoxicillin for 10 days. For past 2 days, patient feels 'loopy' and has also been 'slurring words' wherein he knows what he wants to say but has been saying the wrong words. For eg, he met his daughter's boyfriend but commented that he was his 's boyfriend. This morning he visited his mother to help her with her bills/ prescriptions. He suddenly felt lightheaded 'as if he were to pass out'. He also noticed some vision blurring. He then took a nap, and when he woke up he had intense left sided headache with pain in the back of left eye radiating to left neck. This has gotten better since he came to the ER and his BP was controlled with medications. Patient reports compliance with his medications, except he forgets to take his statin off and on. He also reports intermittent right sided chest and back pains and attributes it to him lifting heavy objects at work. Also, over the past 1 week, patient has notived right testicular swelling without pain or discharge. He follows with Dr. Powell at [facility] and has an appointment for Jul 05. Vitals: stable except for BP 230/112 --> 203/98 --> 161/79. Exam unremarkable. Labs: BUN 34, creat 1.5 (baseline), glucose 209, trop neg. UA glucose >1000. Head CT: no acute pathology, small vessel ischemic changes. CXR: no acute disease. Testicular ultrasound: complex loculation of fluid in region of right epididymal head upto 6 cm. Carotid dopplers: No significant stenosis or dissection, vertebral arteries with normal waveforms. Chest CT without contrast: no acute intrathoracic injury, mild bibasilar atelectasis, no consolidation, no thoracic aneurysm, normal medistinum. EKG: sinus rhythm, LVH. Echo (2017): EF > 65%. Assessment and plan: 1. Hypertensive crisis 2. Expressive aphasia intermittent slurring or use of words in the inappropriate context, possibly in the setting of uncontrolled hypertension 3. Rule out TIA 4. Uncontrolled diabetes 5. Sinus infection on amoxicillin (Day 12/20) 6. H/o DVT-PE on eliquis 7. Right testicular swelling - Admit to Telemetry - Neurochecks Q4 - Monitor for arrhythmias - Resume labetalol 200 mg BID and valsartan 360 mg daily in AM - Avoid drastic drop in BP, keep SBP ~ 140-150 tonight - Patient was on amlodipine and HCTZ in the past, discuss with cardiology about med adjustments - Serial EKG and troponin to rule out ACS - Obtain Echo and Cardio consult - Headache, neck and left eye pain resolved. If this recurs, consider CT head and neck angiogram. - Carotid dopplers are negative for any stenosis or dissection. - Neurology consult - Obtain Urology eval for testicular swelling - Diabetes management, check Hba1c, accucheks, hold metformin, continue lantus and novolog SS. - Complete amoxicillin course of total 10 days DVT ppx Eliquis. Full code. Zion PAYTON,Ella 07/05/17 0853: Resident Review Statement Resident Statement: examined this patient, discussed with internal investigator, agreed with internal investigator Other Findings: This is a 61 yo male with PMH of HTN, HLD, one episode of ? seizure, DVT/PE on NOAC, DM, distant hx of bone cancer who presented with CC of near syncope and WHOML with radiation to his l. eye and neck. Pt states that he has been feeling under the weather for a week but felt particularly bad this AM. Around noon when he go out of his truck he had an episode of dizziness and almost passed out. He rested and sensation went away. Around 4 pm he noted headache that was behind his l. eye and radiated behind his ear and neck. He stated it was the worst headache of his life and subsequently came to hospital. was in the room and added to the hx. She stated that she noted that pt seemed to be slurring of words and that he was having minor lapses in memory. Pt noted a bad "head cold" for one week and went to his PCP Dr. Owens at the beginning of the week. He got 10 day script of Amoxicillin and has completed 7 day course without improvement in symptoms. He states PCP noted his BP in 160s during visit one week ago. Additionally, one week ago he stated he noted incidental r. scrotal swelling. Denies trauma, pain or any change in bowel or bladder habits. He also c/o intermittent chest and back pain but he attributes it to chopping and lifting wood for the past week. Physical exam: HEENT: Pupils equal and reactive. EOMI Cardiovascular: Nml s1/s2; no murmurs Skin: Chronic skin changes in bilat LE. Respiratory:CTAB GI: BSX4, No tenderness on palpation. plaque like erythematous lesions on abdomen Genital: Pt has r testicle>>l. testicle. No lesions, or tenderness present. Feels like a cystic and fluid filled lesion. EXT: Strength and sensation intact. Assessment: This is a 61-year-old male with past medical history significant for hypertension, hyperlipidemia, diabetes, DVT and PE on anticoagulation, cancer right lower extremity, who comes in for chief complaint of pre-syncope and headache radiating to his neck. In the emergency department patient was found to have blood pressure up to 230/112. Given that noted slurring and patient endorsed some difficulty in mentation there was concern for encephalopathy due to hypertensive emergency. In ED he was given 6 mg of morphine, 10 mg of hydralazine, 1.25 mg of IV Vasotec, and nitroglycerin. Subsequently his blood pressure drifted down and pt stated he felt much better. Given presentation, DDx in this pt includes hypertensive urgency vs emergency with possible ICH, ao dissection, or vertebral dissection. Given Cr 1.[address] chest and head w/o contrast and carotid dopplers, which showed no evidence of bleed or dissection. Pt admitted to telemetry for further monitoring and workup. PLAN: 1. Hypertensive crisis: Pt was symptomatic with BP of 230/112 with complaints of slurring and headache. There is concern for hypertensive emergency. See above for ddx. CT head negative for bleed but shows cavum septum lucidum and vergae along with small vessel changes. Also need to r/o possibility of stroke in this gentleman * Remove nitro patch as BP was was in 150s systolic. * Pt is on Valsartan and Labetalol at home. I restarted Labetalol but given BP monse at 122 did not start Valsartan. Reassess and restat pt on his regimen. * If pt symptomatic, has change in vitals or con't complain of neck pain stat CT neck adn chest with contrast. Verified with CAT scan that with Cr 1.5 that we can still administer contrast * Neuro checks * Neuro consult * Cardiology consult * Echocardiogram * EKG/Trop * Negative carotid doppler * orthostats 2. Abnml testicular US: Pt noted testicular swelling on right side. No pain or trauma. It shows 6 cm r. epidydimal head cyst vs loculated hydrocele. * Uro consult in AM 3. DM: * RISS * FS * DM diet * HBA1c 4. CKD: Pt has Cr 1.5 which is same as in Mar 14, 2017. On november 2008 Cr 1.2. Suspect he may have hypertensive or Diabetic sequelae. * UA * Ulytes * FeNa 4. DVT/PE: * Con't Eliquis 5. ? Seizure: Pt only had one episode of siezure. He had work up at [place]. * Pt not on any seizure meds. * Neuro check 6. URI: CXR shows mild atelactasis. * Complete 10 days of Amoxicillin (3 more days) * Flu swab FC NPO CHEM PPX
[2017-07-05 00:43] VITALS: BP 144/70
--- NOTE | 2017-07-05 05:41 | Admission Certification ---
Admission Certification Certification Statement - As attending physician, I certify that at the time of - admission, based on clinical presentation, severity of - symptoms, need for further diagnostic testing and - therapeutic interventions, and risk of adverse outcomes - without in-hospital treatment, in my clinical assessment, - this patient requires an acute hospital stay for a minimum - of two nights or longer. I have also considered psychsocial - factors such as support system, advanced age, financial - issues, cognitive issues, and failed out-patient treatments, - past re-admission history, safety of patient, and lack of - compliance as applicable. Specific rationale supporting this admission is: Hypertensive crisis.
[2017-07-05 07:39] VITALS: BP 122/62
--- NOTE | 2017-07-05 08:13 | PN- Housestaff ---
Josy Jang 07/05/17 0812: Subjective Follow-up For: Hypertensive urgency Possible TIA/stroke Subjective: The patient was seen and examined this morning. He was lying comfortably on bed. He passed his bedside swallow evaluation. He denied any dizziness, headache any weakness in his extremities. He denied any eye or ear pain. Review of Systems Constitutional: Denies: chills, diaphoresis. EENTM: Denies: double vision, visual changes. Cardiovascular: Denies: edema, orthopena. Respiratory: Denies: cough, orthopnea. Gastrointestinal: Denies: bloating, distention. Genitourinary: Denies: dysuria, hematuria. Musculoskeletal: Denies: gout, joint swelling. Objective Last 24 Hrs of Vital Signs/I&O Vital Signs Date Time Temp Pulse Resp B/P B/P Pulse O2 O2 Flow FiO2 Mean Ox Delivery Rate 07/05 1147 86 158/84 07/05 0832 86 158/84 07/05 0739 97.9 86 18 122/62 95 Room Air 07/05 0043 98.3 81 18 144/70 94 Room Air 07/05 0011 97.0 80 20 150/73 97 Room Air 07/04 2314 97.9 81 19 136/67 96 Room Air 07/04 2100 97.9 73 16 162/77 97 Room Air 07/04 1957 69 161/79 07/04 1949 63 203/98 07/04 1924 Room Air 07/04 1907 230/112 07/04 1858 64 18 206/97 95 Room Air 07/04 1841 98.0 78 18 222/101 07/04 1840 65 18 230/112 96 Room Air 07/04 1754 98.3 80 16 217/109 98 Room Air Room Air Intake & Output 07/05 1600 07/05 0800 07/05 0000 Intake Total 600 110 Output Total 300 Balance 600 110 -300 Intake, IV 10 Intake, Oral 600 100 Number 1 Bowel Movements Output, Urine 300 Patient 225 lb Weight Weight Reported by Patient Measurement Method Physical Exam General Appearance: Alert, Oriented X3, Cooperative, No Acute Distress Cardiovascular: Regular Rate, Normal S1, Normal S2, No Murmurs Lungs: Normal Air Movement Abdomen: Soft, No Tenderness Neurological: Normal Speech, Strength at 5/5 X4 Ext, Normal Tone Extremities: No Cyanosis, No Edema Current Medications: Current Medications Sig/Jose A Start time Last Medication Dose Route Stop Time Status Admin Acetaminophen 650 MG Q6P PRN 07/05 0200 AC PO Acetaminophen 1,000 MG Q6P PRN 07/05 0200 AC IV Amoxicillin 250 MG TID 07/05 1017 AC 07/05 PO 07/08 0600 1251 Apixaban 5 MG SEE ADMIN CRITERIA 07/05 0215 CAN PO Apixaban 5 MG BID 07/05 0029 AC 07/05 PO 0833 Enalaprilat 1.25 MG ONCE ONE 07/04 1830 DC 07/04 IV 07/04 1831 1841 Enalaprilat 0 .STK-MED ONE 07/04 182 DC IV Hydralazine HCl 0 .STK-MED ONE 07/04 1936 DC .ROUTE Hydralazine HCl 10 MG ONCE ONE 07/04 1930 DC 07/04 IV 07/04 193 194 Insulin Aspart 0 TIDAC 07/05 1200 AC SC Insulin Aspart 0 TIDAC 07/05 0800 AC 07/05 SC 1146 Labetalol HCl 200 MG BID 07/05 1000 AC 07/05 PO 0832 Morphine Sulfate 2 MG ONCE ONE 07/04 2114 DC 07/04 IV 07/04 2115 212 Morphine Sulfate 0 .STK-MED ONE 07/04 2108 DC .ROUTE Morphine Sulfate 0 .STK-MED ONE 07/04 1937 DC .ROUTE Morphine Sulfate 2 MG ONCE ONE 07/04 1930 DC 07/04 IV 07/04 193 194 Morphine Sulfate 2 MG ONCE ONE 07/04 1830 DC 07/04 IV 07/04 1831 1840 Morphine Sulfate 0 .STK-MED ONE 07/04 1830 DC .ROUTE Nitroglycerin 1 GM ONCE ONE 07/04 1830 DC 07/04 TOP 07/04 1831 1840 Nitroglycerin 0 .STK-MED ONE 07/04 1829 DC TOP Ondansetron HCl 4 MG Q6P PRN 07/05 0200 AC IV Oxycodone/ 2 TAB Q6P PRN 07/05 0200 AC Acetaminophen PO Sodium Chloride 2 SPRAY BID 07/05 1045 AC 07/05 JESI 1147 Tamsulosin HCl 0.4 MG DAILY 07/05 1002 AC 07/05 PO 1147 Last 24 Hrs of Lab/Darinel Results Last 24 Hrs of Labs/Mics: Laboratory Tests 07/05/17 1328: Troponin I < 0.01 07/05/17 1310: Ur Random Creatinine 95.6, Ur Random Sodium 75, Ur Random Potassium 37.5, Fraction Sodium Excret 0.8 07/05/17 0655: Troponin I 0.02 07/05/17 0025: Urinalysis LIGHT H, Urine Color STRAW, Urine Clarity CLEAR, Urine pH 6.0, Ur Specific [place] >= 1.030, Urine Protein >=300 H, Urine Ketones NEG, Urine Nitrite NEG, Urine Bilirubin NEG, Urine Urobilinogen 0.2, Ur Leukocyte Esterase NEG, Ur Microscopic SEDIMENT EXAMINED, Urine RBC 5-10 H, Urine WBC 3-5 H, Ur Epithelial Cells FEW, Urine Mucus FEW, Urine Hemoglobin MOD H, Urine Glucose >= 1000 H 07/04/172052: PT 14.6 H, INR 1.40 H, APTT 34, ESR Westergren 60 H 07/04/171803: Anion Gap 12, Estimated GFR 47 L, BUN/Creatinine Ratio 22.7, Glucose 209 H, Hemoglobin A1c 10.5 H, Calcium 8.8, Total Bilirubin 0.3, AST 25, ALT 31, Alkaline Phosphatase 63, Troponin I < 0.01, C-Reactive Prot, Quant < 0.5, Pro-B- Natriuretic Pept 225 H, Total Protein 6.0 L, Albumin 3.3 L, Globulin 2.7, Albumin/Globulin Ratio 1.2, CBC w Diff NO MAN DIFF REQ, RBC 4.49 L, MCV 92.7, MCH 31.1 H, RDW 12.9, MPV 7.5, Gran % 73.4, Lymphocytes % 13.7 L, Monocytes % 9.8 H, Eosinophils % 2.6, Basophils % 0.5, Absolute Granulocytes 6.1, Absolute Lymphocytes 1.1 L, Absolute Monocytes 0.8 H, Absolute Eosinophils 0.2, Absolute Basophils 0, PUBS MCHC 33.5 Microbiology 07/05 1000 NASOPHARYN: Influenza Virus A & B Rapid Smear - COMP Assessment/Plan Assessment: will start her were that the even ACS is in satisfactory condition on heparin drip to start for close the usual for him. Because patient This is a 61-year-old male with past medical history significant for hypertension, hyperlipidemia, diabetes, DVT and PE on anticoagulation, cancer right lower extremity, who comes in for chief complaint of pre-syncope and headache radiating to his neck. In the emergency department patient was found to have blood pressure up to 230/112. Given that noted slurring and patient endorsed some difficulty in mentation there was concern for encephalopathy due to hypertensive emergency. In ED he was given 6 mg of morphine, 10 mg of hydralazine, 1.25 mg of IV Vasotec, and nitroglycerin. Subsequently his blood pressure drifted down and pt stated he felt much better. Given presentation, DDx in this pt includes hypertensive urgency vs emergency with possible ICH, ao dissection, or vertebral dissection. Given Cr 1.[address] chest and head w/o contrast and carotid dopplers, which showed no evidence of bleed or dissection. Pt admitted to telemetry for further monitoring and workup. PLAN: 1. Hypertensive crisis: Pt was symptomatic with BP of 230/112 with complaints of slurring and headache. There is concern for hypertensive emergency. CT head negative for bleed but shows cavum septum lucidum and vergae along with small vessel changes. Also need to r/o possibility of stroke in this gentleman * 140s to 150s systolic during the day and we will give his home medications. Neurology evaluation was done and at this moment there is no concern for any other neuro imaging. We will do lipid profile in the morning and patient might need 2 statin therapy on discharge.. Abnml testicular US: Pt noted testicular swelling on right side. No pain or trauma. It shows 6 cm r. epidydimal head cyst vs loculated hydrocele. * Uro consult appreciated. 3. DM: * insuline sliding scale * DM diet 4. CKD: Pt has Cr 1.5 which is same as in Mar 14, 2017. On november 2008 Cr 1.2. Suspect he may have hypertensive or Diabetic sequelae. * will repeat labs in am 4. DVT/PE: * Con't Eliquis 5. ? Seizure: Pt only had one episode of siezure. He had work up at [facility]. * Pt not on any seizure meds. 6. URI: CXR shows mild atelactasis. * Complete 10 days of Amoxicillin (3 more days) * Flu swab negative Problem List: 1. Hypertensive urgency Pain Ratin Pain Location: Not applicable Pain Goal: Remain pain free Pain Plan: tylenol Tomorrow's Labs & Rationales: And no organomegaly moderate CbC, basic electrolyte panel and lipid profile Conchita PAYTONKishatevin 07/05/17 1202: Attending MD Review Statement Attending Statement Attending MD Statement: examined this patient, discuss w/resident/PA/BUTTON INSPECTOR, agreed w/resident/PA/BUTTON INSPECTOR, reviewed EMR data (avail), discussed with nursing, discussed with case mgmt, amended to note Attending Assessment/Plan: Problems: 1. Transient ischemic attack; expressive aphasia has resolved. 2. Hypertensive crisis 3. Right epididymal cyst 4. History of DVT/PE on anticoagulation. 5. History of bone cancer status post bone graft placement in 1961. 6. Insulin-dependent diabetes mellitus. Plan: -His neurologic symptoms have resolved and may have been secondary to a TIA brought about by his markedly elevated blood pressure. His history of malignancy however although distant raises concern for possible metastatic brain disease. On account of this MRI is warranted to rule out any intracranial pathology otherwise not noted on CT scan. -So far workup for possible thromboembolic stroke have been negative. He has had no events on the monitor to indicate atrial fibrillation. Carotid Doppler showed no significant disease. -Check patient's fasting lipid panel. IfLDL is above goal of 70, recommend starting patient on lipid-lowering therapy with a statin. Patient was noted to have an elevated lipid panel in the past. He was not on replacement therapy on admission. -Confirm and resume his outpatientanticoagulation therapy. -Confirm and resume his outpatient insulin Regimen. -Blood pressure improved significantly after medication therapy in the ER yesterday. Blood pressure is currently ranging in the 120s-150s. Continue patient on his metoprolol. If systolic blood pressures greater than 190 resume his valsartan otherwise this medication may be resumed tomorrow in order to avoid excessive control of his blood pressure. -Complete course of amoxicillin he was started on as an outpatient. No evidence of pneumonia noted on x-ray. -Urology consultation for his epididymis is appreciated. Follow-up recommendations. Outpatient follow-up. recommendations. Outpatient follow-up.
--- NOTE | 2017-07-05 10:10 | Cons- Urology ---
General Information and HPI Consulting Request Date of Consult: 07/05/17 Requested By: Conchita PAYTON,Abdulkadir Reason for Consult: right scrotal/testicle mass Source of Information: patient Exam Limitations: no limitations History of Present Illness: Pt complains of sudden onset or right testicular mass; no pain, not bothersome. Voiding poorly post TURP at [facility] ([place]). Mr. Cavanaugh is a 61-year-old gentleman with past medical history significant for hypertension, hyperlipidemia, seizure disorder, DVT and PE on Eliquis(November 2016) , diabetes and bone cancer (right lower leg 1961) presents with left eye and neck pain which started today around 4 PM. Patient's was in the room and provided the history as well. According to the patient, he went to see his mother this morning but as he stepped out of his truck he felt lightheaded, and felt like he was going to pass out but denies any loss of consciousness. Try to take a nap after returning home couldn't sleep because of pain in his left eye. Around 4 PM, he had intense left eye pain radiating to his left ear and down his neck, states it was the worst pain of his life. also noticed slurred speech since morning. Patient also reports chest pain radiating to his back x 1 wk, but thinks the pain is musculoskeletal as he has been lifting wood for the past 1 week. Patient was started on amoxicillin(Day 7/10) for sinus infection by his primary care physician a week ago, he has also been using the saline nasal spray, denies any change in medications. At that time he was also found to be hypertensive with systolic blood pressure 160s. Patient also complains of right scrotal swelling that he noticed 1 week ago was taking shower. Denies any testicular pain/burning or urinary symptoms. Denies any shortness of breath, palpitations, cough, sputum production, orthopnea, or fever/chills. Allergies/Medications Allergies: Coded Allergies: No Known Allergies (07/04/17) Home Med List: Apixaban (Eliquis) 5 MG TABLET 1 TAB PO SEE ADMIN CRITERIA PE SEE DISCHARGE INSTRUCTIONS Insulin Glargine,Hum.rec.anlog (Lantus Solostar) 100 UNIT/ML (3 ML) INSULN.PEN 52 UNITS SC QPM DM (Reported) Insulin Lispro (Humalog Kwikpen U-100) 100 UNIT/ML INSULN.PEN DM (Reported) Labetalol HCl 200 MG TABLET 1 TAB PO BID HEART/BP (Reported) Valsartan/Hydrochlorothiazide (Valsartan-Hctz 320-25 MG Tab) 320 MG-25 MG TABLET 1 TAB PO DAILY BP (Reported) Current Medications: Current Medications Sig/Jose A Start time Last Medication Dose Route Stop Time Status Admin Acetaminophen 650 MG Q6P PRN 07/05 0200 AC PO Acetaminophen 1,000 MG Q6P PRN 07/05 0200 AC IV Apixaban 5 MG SEE ADMIN CRITERIA 07/05 0215 CAN PO Apixaban 5 MG BID 07/05 0029 AC 07/05 PO 0833 Enalaprilat 1.25 MG ONCE ONE 07/04 1829 DC 07/04 IV 07/04 1830 184 Enalaprilat 0 .STK-MED ONE 07/04 1828 DC IV Hydralazine HCl 0 .STK-MED ONE 07/04 1936 DC .ROUTE Hydralazine HCl 10 MG ONCE ONE 07/04 193 DC 07/04 IV 07/04 1930 194 Insulin Aspart 0 TIDAC 07/05 0800 AC 07/05 SC 0851 Labetalol HCl 200 MG BID 07/05 1000 AC 07/05 PO 0832 Morphine Sulfate 2 MG ONCE ONE 07/04 2114 DC 07/04 IV 07/04 Morphine Sulfate 0 .STK-MED ONE 07/04 2108 DC .ROUTE Morphine Sulfate 0 .STK-MED ONE 07/04 1937 DC .ROUTE Morphine Sulfate 2 MG ONCE ONE 07/04 1930 DC 07/04 IV 07/04 193 194 Morphine Sulfate 2 MG ONCE ONE 07/04 1830 DC 07/04 IV 07/04 183 1840 Morphine Sulfate 0 .STK-MED ONE 07/04 183 DC .ROUTE Nitroglycerin 1 GM ONCE ONE 07/04 1830 DC 07/04 TOP 07/04 183 1840 Nitroglycerin 0 .STK-MED ONE 07/04 182 DC TOP Ondansetron HCl 4 MG Q6P PRN 07/05 0200 AC IV Oxycodone/ 2 TAB Q6P PRN 07/05 0200 AC Acetaminophen PO Tamsulosin HCl 0.4 MG DAILY 07/05 1002 AC PO Past History Medical History Blood Transfusion Hx: Yes Neurological: seizure EENT: NONE Cardiovascular: hypertension, hyperlipidemia Respiratory: NONE Gastrointestinal: abdominal pain with fluid collection in the paracolic gutter Hepatic: NONE Renal: NONE Musculoskeletal: NONE Psychiatric: NONE Endocrine: insulin-dependent T2DM Blood Disorders: DVT, PE Cancer(s): bone cancer of right lower leg (1961) Surgical History Pertinent Surgical History: excision of left neck soft tissue mass hernia repair x2 (most recent one in March 2016) resection of right lower leg bone cancer ( 1961) and bone graft placement TURP Family History Relations & Conditions If Any: PATERNAL GRANDMOTHER FH: diabetes mellitus Psychosocial History Where Do You Live? Home Services at Home: None Primary Language: Dominican Smoking Status: Never Smoked ETOH Use: denies use Illicit Drug Use: denies illicit drug use Functional Ability ADLs Independent: dressing, eating, toileting, bathing. Ambulation: independent IADLs Independent: shopping, housework, finances, food prep, telephone, transportation , medication admin. 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 EENTM: Reports: see HPI. Denies: no symptoms. Cardiovascular: Denies: no symptoms. Respiratory: Denies: no symptoms. GI: Reports: bloating. Denies: no symptoms. Genitourinary: Reports: see HPI. Musculoskeletal: Denies: no symptoms. Skin: Denies: no symptoms. Exam & Diagnostic Data Vital Signs and I&O Vital Signs Date Time Temp Pulse Resp B/P B/P Pulse O2 O2 Flow FiO2 Mean Ox Delivery Rate 07/05 0832 86 158/84 07/05 0739 97.9 86 18 122/62 95 Room Air 07/05 0043 98.3 81 18 144/70 94 Room Air 07/05 0011 97.0 80 20 150/73 97 Room Air 07/04 2314 97.9 81 19 136/67 96 Room Air 07/04 2100 97.9 73 16 162/77 97 Room Air 07/04 1957 69 161/79 07/04 1949 63 203/98 07/04 1924 Room Air 07/04 1907 230/112 07/04 1858 64 18 206/97 95 Room Air 07/04 1841 98.0 78 18 222/101 07/04 1840 65 18 230/112 96 Room Air 07/04 1754 98.3 80 16 217/109 98 Room Air Room Air Intake & Output 07/05 1600 07/05 0800 07/05 0000 07/04 1600 07/04 0800 07/04 0000 Intake Total 110 Output Total 300 Balance 110 -300 Intake, IV 10 Intake, Oral 100 Output, Urine 300 Patient 225 lb Weight Weight Reported by Patient Measurement Method Physical Exam General Appearance: well developed/nourished, no apparent distress Head: atraumatic Eyes: Bilateral: normal appearance. Neck: normal inspection, supple, full range of motion Respiratory: normal breath sounds Cardiovascular: regular rate/rhythm Gastrointestinal: normal bowel sounds, soft, non-tender, obese Back: no vertebral tenderness Extremities: normal inspection Lymphatic: adenopathy Reproductive: Normal male genitalia Last 24 Hours of Labs: Laboratory Tests 07/05 07/05 07/04 0655 0025 2052 Chemistry Troponin I (<0.11 ng/ml) 0.02 Coagulation PT (9.4 - 12.5 SEC) 14.6 H INR (0.90 - 1.17) 1.40 H APTT (25 - 37 SEC) 34 Hematology ESR Westergren (0 - 10 MM) 60 H Urines Urinalysis LIGHT H Urine Color (YEL,AMB,STR) STRAW Urine Clarity (CLEAR) CLEAR Urine pH (5.0 - 8.0) 6.0 Ur Specific [place] (1.001 - 1.035) >= 1.030 Urine Protein (NEG,<30 MG/DL) >=300 H Urine Ketones (NEG) NEG Urine Nitrite (NEG) NEG Urine Bilirubin (NEG) NEG Urine Urobilinogen (0.1 - 1.0 EU/dl) 0.2 Ur Leukocyte Esterase (NEG) NEG Ur Microscopic SEDIMENT EXAMINED Urine RBC (0 - 5 /HPF) 5-10 H Urine WBC (0 - 2 /HPF) 3-5 H Ur Epithelial Cells (NONE,FEW) FEW Urine Mucus (FEW,NONE) FEW Urine Hemoglobin (NEG) MOD H Urine Glucose (N MG/DL) >=1000 H 07/04 1804 Chemistry Sodium (137 - 145 mmol/L) 139 Potassium (3.5 - 5.1 mmol/L) 4.5 Chloride (98 - 107 mmol/L) 99 Carbon Dioxide (22 - 30 mmol/L) 27 Anion Gap (5 - 16) 12 BUN (9 - 20 mg/dL) 34 H Creatinine (0.7 - 1.2 mg/dL) 1.5 H Estimated GFR (>60 ml/min) 47 L BUN/Creatinine Ratio (7 - 25 %) 22.7 Glucose (65 - 99 mg/dL) 209 H Hemoglobin A1c (4.2 - 5.8 %) Pending Calcium (8.4 - 10.2 mg/dL) 8.8 Total Bilirubin (0.2 - 1.3 mg/dL) 0.3 AST (17 - 59 U/L) 25 ALT (21 - 72 U/L) 31 Alkaline Phosphatase (< 127 U/L) 63 Troponin I (<0.11 ng/ml) < 0.01 C-Reactive Prot, Quant (<1.0 mg/dL) < 0.5 Fqf-V-Edotmizluln Pept (<125 pg/mL) 225 H Total Protein (6.3 - 8.2 g/dL) 6.0 L Albumin (3.5 - 5.0 g/dL) 3.3 L Globulin (1.9 - 4.2 gm/dL) 2.7 Albumin/Globulin Ratio (1.1 - 2.2 %) 1.2 Hematology CBC w Diff NO MAN DIFF REQ WBC (4.8 - 10.8 /CUMM) 8.3 RBC (4.70 - 6.10 /CUMM) 4.49 L Hgb (14.0 - 18.0 G/DL) 13.9 L Hct (42 - 52 %) 41.6 L MCV (80.0 - 94.0 FL) 92.7 MCH (27.0 - 31.0 PG) 31.1 H RDW (11.5 - 14.5 %) 12.9 Plt Count (130 - 400 /CUMM) 284 MPV (7.4 - 10.4 FL) 7.5 Gran % (42.2 - 75.2 %) 73.4 Lymphocytes % (20.5 - 51.1 %) 13.7 L Monocytes % (1.7 - 9.3 %) 9.8 H Eosinophils % (0 - 5 %) 2.6 Basophils % (0.0 - 2.0 %) 0.5 Absolute Granulocytes (1.4 - 6.5 /CUMM) 6.1 Absolute Lymphocytes (1.2 - 3.4 /CUMM) 1.1 L Absolute Monocytes (0.10 - 0.60 /CUMM) 0.8 H Absolute Eosinophils (0.0 - 0.7 /CUMM) 0.2 Absolute Basophils (0.0 - 0.2 /CUMM) 0 PUBS MCHC (33.0 - 37.0 G/DL) 33.5 Imaging Results: PATIENT: ELE CAVANAUGH PRESENT AGE: 61 PATIENT ACCOUNT NO: [id number] : 53 LOCATION: [facility] ORDERING PHYSICIAN: Fran ALVARADO SERVICE DATE: 07/04/17 EXAM TYPE: US - US-TESTICULAR EXAMINATION: US SCROTUM CLINICAL INFORMATION: Right testicular swelling. COMPARISON: None TECHNIQUE: A sonogram of the scrotum was performed assessing vega-scale appearance and color Doppler flow. Spectral analysis and Doppler interrogation was performed. FINDINGS: RIGHT: Right testicle measures 3.2 x 3.3 x 3.1 cm, volume 23.2 mL. Parenchymal echotexture is normal. No focal testicular parenchymal lesions are visualized. Normal symmetric intratesticular flow is visualized. Right epididymal head is now well evaluated. In the region of the epididymal head there is a complex loculation of fluid measuring 6 x 3.8 x 5.7 cm. No varicocele is seen. LEFT: Left testicle measures 0.7 x 2.5 x 2.6 cm, volume 1.7 mL. Parenchymal echotexture is normal. No focal testicular parenchymal lesions are visualized. Normal symmetric intratesticular flow is visualized. Left epididymal head is normal in size. No left hydrocele or varicocele is seen. IMPRESSION: Complex loculation of fluid in the region of the right epididymal head measuring up to 6 cm which favors an epididymal head cyst, although loculated hydrocele is possible. No testicular torsion. Assessment/Plan Assessment/Plan right epididymal cyst: f/u prn if in pain. Copies To: Endy Milner MD Consult Acknowledgment - Thank you for your consult request. Attending MD Review Statement Attending Statement Attending Statement: examined this patient, discuss w/resident/PA/SALMON GILLNET VESSEL OPERATOR Attending Assessment/Plan: right epidid cyst:not problematic at this time: f/u prn for excision.
--- NOTE | 2017-07-05 12:53 | Cons- Neurology ---
General Information and HPI Consulting Request Date of Consult: 07/05/17 Requested By: Abdulkadir Arango MD History of Present Illness: 61-year-old male presents following an episode of head pain and near syncope. The patient has a history of diabetes, hypertension, depression, DVT on Eliquis and a possible "seizure" several years back when he developed left-sided involuntary movements in the face of stress. He was evaluated at the [facility] neurology clinic and was treated for a time with an anticonvulsant however this was discontinued due to an extended period of seizure freedom. The patient informs me that his neurodiagnostic workup at that time was negative. He has never truly believe that he suffered a seizure. The patient was now admitted following a one-week period of symptoms suggestive of a sinus infection, including some head pain. He was starting to feel better and attempted to go to the pharmacy for his mother. He jumped out of his truck, felt lightheaded, as if he were "almost passing out". There was no actual loss of consciousness. Thereafter he felt heightened left frontal head pain. She was subsequently found to be markedly hypertensive. He was referred to Hospital and admitted for evaluation. On further questioning, he questions whether he has had some difficulty finding words over the past several days. There has been no appendicular symptoms or ataxia. CAT scan of the brain showed no abnormalities. Carotid ultrasound showed no significant stenoses. Allergies/Medications Allergies: Coded Allergies: No Known Allergies (07/04/17) Home Med List: Apixaban (Eliquis) 5 MG TABLET 1 TAB PO SEE ADMIN CRITERIA PE SEE DISCHARGE INSTRUCTIONS Insulin Glargine,Hum.rec.anlog (Lantus Solostar) 100 UNIT/ML (3 ML) INSULN.PEN 52 UNITS SC QPM DM (Reported) Insulin Lispro (Humalog Kwikpen U-100) 100 UNIT/ML INSULN.PEN DM (Reported) Labetalol HCl 200 MG TABLET 1 TAB PO BID HEART/BP (Reported) Valsartan/Hydrochlorothiazide (Valsartan-Hctz 320-25 MG Tab) 320 MG-25 MG TABLET 1 TAB PO DAILY BP (Reported) Review of Systems Review of Systems: Head pain, depressed mood following loss of job several years back, upper respiratory congestion and near syncope. There is been no recent diplopia, dysphagia, chest pain, vomiting, vertigo, gait ataxia, joint inflammation or abnormal bleeding. Past History Travel History Traveled to [place] past 21 day No Medical History Blood Transfusion Hx: Yes Neurological: seizure EENT: NONE Cardiovascular: hypertension, hyperlipidemia Respiratory: NONE Gastrointestinal: abdominal pain with fluid collection in the paracolic gutter Hepatic: NONE Renal: NONE Musculoskeletal: NONE Psychiatric: NONE Endocrine: insulin-dependent T2DM Blood Disorders: DVT, PE Cancer(s): bone cancer of right lower leg (1961) Surgical History Surgical History: excision of left neck soft tissue mass hernia repair x2 (most recent one in March 2016) resection of right lower leg bone cancer (1961) and bone graft placement TURP Family History Relations & Conditions If Any: PATERNAL GRANDMOTHER FH: diabetes mellitus Psychosocial History Where Do You Live? Home Services at Home: None Primary Language: German Smoking Status: Never Smoked ETOH Use: denies use Illicit Drug Use: denies illicit drug use Functional Ability ADLs Independent: dressing, eating, toileting, bathing. Ambulation: independent IADLs Independent: shopping, housework, finances, food prep, telephone, transportation , medication admin. Employment History Employment: Unemployed Profession/Employer: contractor Exam & Diagnostic Data Vital Signs and I&O Vital Signs Date Time Temp Pulse Resp B/P B/P Pulse O2 O2 Flow FiO2 Mean Ox Delivery Rate 07/05 1147 86 158/84 07/05 0832 86 158/84 07/05 0739 97.9 86 18 122/62 95 Room Air 07/05 0043 98.3 81 18 144/70 94 Room Air 07/05 0011 97.0 80 20 150/73 97 Room Air 07/04 2314 97.9 81 19 136/67 96 Room Air 07/04 2100 97.9 73 16 162/77 97 Room Air 07/04 1957 69 161/79 07/04 1949 63 203/98 07/04 1924 Room Air 07/04 1907 230/112 07/04 1858 64 18 206/97 95 Room Air 07/04 1841 98.0 78 18 222/101 07/04 1840 65 18 230/112 96 Room Air 07/04 1754 98.3 80 16 217/109 98 Room Air Room Air Intake & Output 07/05 1600 07/05 0800 07/05 0000 Intake Total 110 Output Total 300 Balance 110 -300 Intake, IV 10 Intake, Oral 100 Output, Urine 300 Patient 225 lb Weight Weight Reported by Patient Measurement Method Very pleasant middle-aged male in no acute distress. The head was normocephalic and atraumatic. Higher cortical function was intact. Speech was fluent. Pupils were equal and reactive. Extraocular movements were full. There was no nystagmus. Face was symmetric. Hearing was mildly down. Tongue was midline. Motor examination showed no drift of the upper extremities. There was no focal or lateralizing weakness. Deep tendon reflexes were diffusely hypoactive. Plantar responses were flexor. Fine finger movements and rapid alternating movements were performed normally. There was no ataxia on [id number] testing. His gait was narrow based and steady. Assessment/Plan Assessment: #1 near syncope. There is no historical evidence to suggest seizure #2 uncontrolled hypertension #3 headache in the setting of elevated blood pressure and recent sinus congestion. The patient has a normal examination and a negative brain CT. Recommendations: I do not believe that the patient merits further neurodiagnostic diagnostic studies at this time. We would be happy to follow him in the outpatient setting should headaches, alteration of consciousness or concern for seizure persist. Please feel free to call with any further questions. Consult Acknowledgment - Thank you for your consult request.
[2017-07-05 16:10] VITALS: BP 144/58
[2017-07-05 23:00] VITALS: BP 148/86
[2017-07-06 06:47] VITALS: BP 178/84
[2017-07-06 07:58] LABS: ABSOLUTE BASOPHIL COUNT 0 /CUMM (0.0-0.2); ABSOLUTE EOSINOPHIL COUNT 0.3 /CUMM (0.0-0.7); ABSOLUTE GRANULOCYTE CT 5.2 /CUMM (1.4-6.5); ABSOLUTE LYMPH COUNT 1.3 /CUMM (1.2-3.4); ABSOLUTE MONOCYTE COUNT 0.7 /CUMM (0.10-0.60); BASOPHIL % 0.3 % (0.0-2.0); GRANULOCYTE % 69.5 % (42.2-75.2); HEMATOCRIT 39.3 % (42-52); MEAN CORPUSCULAR HGB 31.3 PG (27.0-31.0); MEAN CORPUSCULAR HGB CONC 33.8 G/DL (33.0-37.0); MEAN CORPUSCULAR VOLUME 92.6 FL (80.0-94.0); MEAN PLATELET VOLUME 7.6 FL (7.4-10.4); PLATELET COUNT 233 /CUMM (130-400); RBC DISTRIBUTION WIDTH 13.2 % (11.5-14.5); RED BLOOD CELL CT 4.24 /CUMM (4.70-6.10); WHITE BLOOD CELL COUNT 7.5 /CUMM (4.8-10.8)
[2017-07-06] MEDS ORDERED: FLOMAX0.4 M1 PO ×2 (08:02→12:57)
--- NOTE | 2017-07-06 08:06 | Patient Discharge Instructions ---
Discharge Instructions General Discharge Information You were seen/treated for: hypertensive urgency testicular cyst Special Instructions: Please follow-up with your primary care physician in one week of discharge Please follow-up with Dr. Milner for your testicular cyst in 1-2 weeks of discharge Please take medications as prescribed Please follow-up with Dr. Kit Vitale for neurology follow-up in 2 weeks. Diet Recommended Diet: Diabetic, Heart Healthy Activity Additional ACTIVITY Info: As tolerated Acute Coronary Syndrome Inclusion Criteria At DC or during hospital stay patient has or had the following: ACS DIAGNOSIS No Discharge Core Measures Meds if any: Prescribed or Continued at Discharge Meds if any: NOT Prescribed or Continued at Discharge Congestive Heart Failure Inclusion Criteria At DC or during hospital stay patient has or had the following: CHF DIAGNOSIS No Discharge Core Measures Meds if any: Prescribed or Continued at Discharge Meds if any: NOT Prescribed or Continued at Discharge Cerebrovascular accident Inclusion Criteria At DC or during hospital stay patient has or had the following: CVA/TIA Diagnosis No Discharge Core Measures Meds if any: Prescribed or Continued at Discharge Meds if any: NOT Prescribed or Continued at Discharge Venous thromboembolism Inclusion Criteria VTE Diagnosis No VTE Type NONE VTE Confirmed by (Test) NONE Discharge Core Measures - Per Current guidelines, there needs to be overlap - treatment for the first 5 days of Warfarin therapy. - If discharged on Warfarin prior to 5 days of - overlap therapy, the patient will need to be - assessed for post discharge needs including - *Post discharge parental anticoagulation - *Warfarin and/or parental anticoagulation education - *Follow up date to check INR post discharge At least 5 days overlap therapy as Inpatient No Meds if any: Prescribed or Continued at Discharge Note: Overlap Therapy is Warfarin and Anticoagulant Meds if any: NOT Prescribed or Continued at Discharge
--- NOTE | 2017-07-06 08:08 | PN- Housestaff ---
Josy Jang 07/06/17 0808: Subjective Follow-up For: Hospital yesterday as Epididymal cyst Complaints: no complaints Subjective: Patient was seen and examined this morning. He was lying comfortably in bed without any complaints of headache or chest pain. His blood pressure was slightly on the higher side in 170s systolic this morning. We will consider adding another antihypertensive in his medication regimen. Review of Systems Constitutional: Denies: chills, diaphoresis. Cardiovascular: Denies: chest pain, orthopena. Respiratory: Denies: hemoptysis, orthopnea. Gastrointestinal: Denies: diarrhea, distention. Genitourinary: Denies: dysuria, hematuria. Musculoskeletal: Denies: gout, joint pain. Skin: Denies: change in hair/nails, erythema. Objective Last 24 Hrs of Vital Signs/I&O Vital Signs Date Time Temp Pulse Resp B/P B/P Pulse O2 O2 Flow FiO2 Mean Ox Delivery Rate 07/06 1028 80 178/84 07/06 0915 80 178/84 07/06 0915 80 178/84 07/06 0647 98.1 67 18 178/84 93 Room Air 07/05 2300 98.3 82 18 148/86 96 Room Air 07/05 2157 Room Air 07/05 2058 148/86 07/05 1610 98.2 73 20 144/58 94 Intake & Output 07/06 1600 07/06 0800 07/06 0000 Intake Total 400 240 Output Total Balance 400 240 Intake, Oral 400 240 Physical Exam General Appearance: Alert, Oriented X3, Cooperative, No Acute Distress Cardiovascular: Regular Rate, Normal S1, Normal S2, No Murmurs Lungs: Normal Air Movement Abdomen: Soft, No Tenderness Current Medications: Current Medications Sig/Jose A Start time Last Medication Dose Route Stop Time Status Admin Acetaminophen 650 MG Q6P PRN 07/05 0200 AC PO Acetaminophen 1,000 MG Q6P PRN 07/05 0200 AC IV Amoxicillin 250 MG TID 07/05 1017 AC 07/06 PO 07/08 0600 0915 Apixaban 5 MG BID 07/05 0029 AC 07/06 PO 0915 Hydrochlorothiazide 12.5 MG DAILY 07/06 1000 AC 07/06 PO 1028 Insulin Aspart 0 TIDAC 07/05 1700 AC 07/06 SC 1152 Insulin Aspart 0 TIDAC 07/05 1200 DC SC Insulin Aspart 0 TIDAC 07/05 0800 DC 07/06 SC 0745 Insulin Detemir 30 UNITS AT BEDTIME 07/05 2200 AC 07/05 SC 2058 Labetalol HCl 200 MG BID 07/05 1000 AC 07/06 PO 0915 Losartan Potassium 100 MG DAILY 07/06 1000 AC 07/06 PO 1028 Ondansetron HCl 4 MG Q6P PRN 07/05 0200 AC IV Oxycodone/ 2 TAB Q6P PRN 07/05 0200 AC Acetaminophen PO Sodium Chloride 2 SPRAY BID 07/05 1045 AC 07/06 JESI 0916 Tamsulosin HCl 0.4 MG DAILY 07/05 1002 AC 07/06 PO 0915 Last 24 Hrs of Lab/Darinel Results Last 24 Hrs of Labs/Mics: Laboratory Tests 07/06/17 0615: Anion Gap 11, Estimated GFR > 60, BUN/Creatinine Ratio 25.0, Triglycerides 177 H, Cholesterol 237 H, LDL Cholesterol, Calc 163 H, HDL Cholesterol 39 L, Cholesterol/HDL Ratio 6 H, CBC w Diff NO MAN DIFF REQ, RBC 4.24 L, MCV 92.6, MCH 31.3 H, RDW 13.2, MPV 7.6, Gran % 69.5, Lymphocytes % 16.9 L, Monocytes % 9.3, Eosinophils % 4.0, Basophils % 0.3, Absolute Granulocytes 5.2, Absolute Lymphocytes 1.3, Absolute Monocytes 0.7 H, Absolute Eosinophils 0.3, Absolute Basophils 0, PUBS MCHC 33.8 07/05/17 1328: Troponin I < 0.01 07/05/17 1310: Ur Random Creatinine 95.6, Ur Random Sodium 75, Ur Random Potassium 37.5, Fraction Sodium Excret 0.8 Assessment/Plan Assessment: will start her were that the even ACS is in satisfactory condition on heparin drip to start for close the usual for him. Because patient This is a 61-year-old male with past medical history significant for hypertension, hyperlipidemia, diabetes, DVT and PE on anticoagulation, cancer right lower extremity, who comes in for chief complaint of pre-syncope and headache radiating to his neck. In the emergency department patient was found to have blood pressure up to 230/112. Given that noted slurring and patient endorsed some difficulty in mentation there was concern for encephalopathy due to hypertensive emergency. In ED he was given 6 mg of morphine, 10 mg of hydralazine, 1.25 mg of IV Vasotec, and nitroglycerin. Subsequently his blood pressure drifted down and pt stated he felt much better. Given presentation, DDx in this pt includes hypertensive urgency vs emergency with possible ICH, ao dissection, or vertebral dissection. Given Cr 1.[address] chest and head w/o contrast and carotid dopplers, which showed no evidence of bleed or dissection. Pt admitted to telemetry for further monitoring and workup. PLAN: 1. Hypertensive crisis: Pt was symptomatic with BP of 230/112 with complaints of slurring and headache. There is concern for hypertensive emergency. CT head negative for bleed but shows cavum septum lucidum and vergae along with small vessel changes. Also need to r/o possibility of stroke in this gentleman * 140s to 150s systolic during the day and we will give his home medications. Neurology evaluation was done and at this moment there is no concern for any other neuro imaging. We will do lipid profile in the morning and patient might need * His blood pressure was 178 systolic this morning. We will consider adding amlodipine and his discharge medication regimen. 2. Testicular /epididymal cyst on testicular US: Pt noted testicular swelling on right side. No pain or trauma. It shows 6 cm r. epidydimal head cyst vs loculated hydrocele. * Uro consult appreciated. Patient will follow-up with neurology as outpatient 3. DM: * insuline sliding scale and patient would resume his medications on discharge * DM diet 4. CKD: Pt has Cr 1.5 which is same as in Mar 14, 2017. On november 2008 Cr 1.2. Suspect he may have hypertensive or Diabetic sequelae. * Creatinine came back normal today 4. DVT/PE: * Con't Eliquis 5. ? Seizure: Pt only had one episode of siezure. He had work up at [place]. * Pt not on any seizure meds. 6. URI: CXR shows mild atelactasis. * Complete 10 days of Amoxicillin 1 more day after discharge * Flu swab negative Problem List: 1. Hypertensive urgency Pain Ratin Pain Location: na Pain Goal: Remain pain free Pain Plan: tylenol Tomorrow's Labs & Rationales: none Abdulkadir Arango MD 07/06/17 1332: Attending MD Review Statement Attending Statement Attending MD Statement: examined this patient, discuss w/resident/PA/RIG MECHANIC, agreed w/resident/PA/RIG MECHANIC, discussed with family, reviewed EMR data (avail), discussed with nursing, discussed with case mgmt, amended to note Attending Assessment/Plan: Patient seen and examined. Resting comfortably [place] any acute distress. No issues overnight. No new complaints by nursing staff today. Patient is alert and oriented 3 and conversant appropriately. He has no neurologic deficits on examination. His blood pressure ranged from the 120s-140s yesterday on labetalol only. This morning his losartan/hydrochlorothiazide has been added back. In addition we are adding amlodipine 5 mg daily. Has been advised to monitor his blood pressure log it twice a day until he follows up with his primary care provider next week. His called this morning stating that when she spoke with the patient today he had slurred speech. She reports that this was similar to how he sounded prior to presentation. Patient has had no episodes of speech difficulty while he in the hospital. No speech difficulty reported by nursing staff or housestaff. I did discuss this further with Dr. Kit Vitale. Recommendations are for the patient to follow-up as an outpatient if the symptoms persist. I have advised the patient and his to return to the emergency room should he have prolonged episodes at home. is in agreement with this plan. In addition his LDL is above goal. We are increasing his home dose of Crestor upon discharge.
[2017-07-06] MEDS ORDERED: AMLODIPINE BESYL5 M1 PO ×2 (12:05→12:57)
[2017-07-06] MEDS ORDERED: AMOXICILLIN500 M2 PO (12:06)
[2017-07-06] MEDS ORDERED: CRESTOR20 M2 PO (12:06)
[2017-07-06] MEDS ORDERED: CRESTOR40 M2 PO ×2 (12:22→12:57)
[2017-07-06 12:36] VITALS: BP 138/72
--- NOTE | 2017-07-07 17:04 | Discharge Summary ---
Visit Information Visit Dates Admission Date: 07/04/17 Discharge Date: 07/06/17 Hospital Course Course Attending Physician: Abdulkadir Arango MD Primary Care Physician: Kory Owens MD. Hospital Course: 61 yo M with h/o DM, HTN, bone cancer RLE s/p resection and iliac bone graft ( 1961), RLE DVT/ PE on Eliquis, seizure d/o (not on meds, being followed by Neuro ), CKD stage 3, is brought in for evaluation of headache, left eye and neck pain. Patient reports being diagnosed with sinus infection in the past week, was prescribed amoxicillin for 10 days. For past 2 days, patient feels 'loopy' and has also been 'slurring words' wherein he knows what he wants to say but has been saying the wrong words. Concerning for stroke/TIA. Vitals: stable except for BP 230/112 --> 203/98 --> 161/79. Exam unremarkable. Labs: BUN 34, creat 1.5 (baseline), glucose 209, trop neg. UA glucose >1000. Head CT: no acute pathology, small vessel ischemic changes. CXR: no acute disease. Testicular ultrasound: complex loculation of fluid in region of right epididymal head upto 6 cm. Carotid dopplers: No significant stenosis or dissection, vertebral arteries with normal waveforms. Chest CT without contrast: no acute intrathoracic injury, mild bibasilar atelectasis, no consolidation, no thoracic aneurysm, normal medistinum. EKG: sinus rhythm, LVH. Echo (2017): EF > 65%. patient was admitted on telemetry floor and following issues were addressed 1. Hypertensive crisis 2. Expressive aphasia intermittent slurring or use of words in the inappropriate context, possibly in the setting of uncontrolled hypertension 3. Rule out TIA 4. Uncontrolled diabetes 5. Sinus infection on amoxicillin (Day 12/20) 6. H/o DVT-PE on eliquis 7. Right testicular swelling Hospital course Patient was symptomatically with blood pressure of 230/112 with complaints of slurring of his speech and headache. Head CT was done which was negative for any intracranial bleed. Carotid ultrasound was also done which showed no evidence of hemodynamicaly significant carotid stenosis. Neurology consultation was placed and no further studies were warranted at this time. Patient was instructed to follow with neurology as outpatient. His hypertension was initially controlled with IV medications and then we resumed his home medication in addition to that we added amlodipine in his discharge regimen and he was instructed to follow-up with PCP and maintain a blood pressure log. Patient was also complaining of testicular swelling and testicular ultrasound was done that showed a 6 cm right epididymal head cyst. Urology consultation was placed and appreciated. Patient is to follow-up when necessary with urologist as outpatient and he was started on Flomax. He was continued on insulin sliding scale and on discharge his home regimen of insulin was continued. Patient was also continued on his home regimen of amoxicillin due to his sinusitis and was discharged on same with instruction to follow up with his PCP. Complications: NONE Allergies: Coded Allergies: No Known Allergies (07/04/17) Significant Procedures: SERVICE DATE: 07/04/17 EXAM TYPE: US - US-TESTICULAR EXAMINATION: US SCROTUM CLINICAL INFORMATION: Right testicular swelling. COMPARISON: None TECHNIQUE: A sonogram of the scrotum was performed assessing vega-scale appearance and color Doppler flow. Spectral analysis and Doppler interrogation was performed. FINDINGS: RIGHT: Right testicle measures 3.2 x 3.3 x 3.1 cm, volume 23.2 mL. Parenchymal echotexture is normal. No focal testicular parenchymal lesions are visualized. Normal symmetric intratesticular flow is visualized. Right epididymal head is now well evaluated. In the region of the epididymal head there is a complex loculation of fluid measuring 6 x 3.8 x 5.7 cm. No varicocele is seen. LEFT: Left testicle measures 0.7 x 2.5 x 2.6 cm, volume 1.7 mL. Parenchymal echotexture is normal. No focal testicular parenchymal lesions are visualized. Normal symmetric intratesticular flow is visualized. Left epididymal head is normal in size. No left hydrocele or varicocele is seen. IMPRESSION: Complex loculation of fluid in the region of the right epididymal head measuring up to 6 cm which favors an epididymal head cyst, although loculated hydrocele is possible. No testicular torsion. Disposition Summary Disposition Principal Diagnosis: Hypertensive urgency Additional Diagnosis: Epididymal cyst Discharge Disposition: home or self care Discharge Instructions General Discharge Information Code Status: Full Code Patient's Diet: Heart healthy diet Patient's Activity: As tolerated Follow-Up Instructions/Appts: Please follow-up with your primary care physician in one week of discharge Please follow-up with urologist as stated within 2-3 weeks of discharge Please maintain blood pressure log and follow up with PCP Please take medications as prescribed Medications at Discharge Discharge Medications: Stop taking the following medications: Rosuvastatin Calcium (Crestor) 20 MG TABLET ORAL DAILY Continue taking these medications: Insulin Glargine,Hum.rec.anlog (Lantus Solostar) 100 UNIT/ML (3 ML) INSULN.PEN 52 Units Inject into fatty tissue Every night Qty = 45 Comments: NOT GIVEN IN HOSPITAL Insulin Lispro (Humalog Kwikpen U-100) 100 UNIT/ML INSULN.PEN Units Inject into fatty tissue BEFORE MEALS AND AT BEDTIME Qty = 15 Comments: Last Taken: 07/06/17 Time: 1200 PM NOVOLOG GIVEN INSTEAD Valsartan/Hydrochlorothiazide (Valsartan-Hctz 320-25 MG Tab) 320 MG-25 MG TABLET 1 Tablet ORAL DAILY Qty = 90 Comments: NOT GIVEN IN HOSPITAL Labetalol HCl (Labetalol HCl) 200 MG TABLET 1 Tablet ORAL TWICE DAILY Qty = 60 Comments: Last Taken: 07/06/17 Time: 09:15 AM Apixaban (Eliquis) 5 MG TABLET 1 Tablet ORAL SEE INSTRUCTIONS Qty = 90 Instructions: SEE DISCHARGE INSTRUCTIONS Comments: PLEASE TAKE 2 PILLS (10 MG ) TWICE DAILY FOR 5 DAYS , THEN START TAKING 1 PILL (5 MG ) TWICE DAILY. Last Taken: 07/06/17 Time: 0900 AM Amoxicillin (Amoxicillin) 500 MG CAPSULE 1 Capsule ORAL THREE TIMES DAILY Qty = 30 Comments: Last Taken: 07/06/17 Time: 0900 AM Start taking the following new medications: Amlodipine Besylate (Amlodipine Besylate) 5 MG TABLET 1 Tablet ORAL DAILY Qty = 30 No Refills Rosuvastatin Calcium (Crestor) 40 MG TABLET 1 Tablet ORAL DAILY Qty = 30 No Refills Tamsulosin HCl (Flomax) 0.4 MG CAP.ER.24H 1 Capsule ORAL DAILY Qty = 30 No Refills Copies To: Graciela PAYTON,Kory Muir Attending MD Review Statement Documenting Attending: Conchita PAYTON,Abdulkadir
== END 2017-07-06 13:35 | DRG 305 ==
LOC: ERH 17:11 → ERHI 20:36 → 1NO 20:36 → ENRESERV 22:35 → 1NO 07-05 00:42 → ENTRNSPT 07-06 13:27 → EDTRNSPTSTS 07-06 13:31 → EDTRNSPT 07-06 13:31 → 1NO 07-06 13:35 → CMPTRNSPT 07-06 13:43
PROVIDERS: Internal Medicine; Physician Assistant Medical
DX: I16.0 Hypertensive urgency (principal); E11.22 Type 2 diabetes mellitus with diabetic chronic kidney disease; R56.9 Unspecified convulsions; R47.01 Aphasia; N18.3 Chronic kidney disease, stage 3 (moderate); N50.3 Cyst of epididymis; Z79.4 Long term (current) use of insulin; Z86.711 Personal history of pulmonary embolism; Z79.01 Long term (current) use of anticoagulants; I12.9 Hypertensive chronic kidney disease with stage 1 through stage 4 chronic kidney disease, or unspecified chronic kidney disease; R51 Headache; J01.90 Acute sinusitis, unspecified; H57.12 Ocular pain, left eye; M54.2 Cervicalgia
CPT/HCPCS: 1NSP; 84133; 84300; ERO; 36415; 71045; 81001; 82436; 82570; 87804; 87804-59; 93005; 93010; 96374; 96375; 96376; 99291; J0360; J3490